=== PATIENT | female | born 1955 | race Caucasian/White ===

== ENCOUNTER 2016-04-12 08:30 | Inpatient (IN) | payer MEDICARE ==
[~2016-04-12] VITALS: Ht 154.9 cm; Wt 113.6 kg
[2016-04-12 08:27] LABS: BASOPHILS 0.4 % (0.0-2.0); EOSINOPHILS 4.1 % (0-7); HEMATOCRIT 37.3 % (36.0-48.0); HEMOGLOBIN 11.9 g/dL (12-16); IMMATURE GRANULOCYTES 0.2 % (0-5); LYMPHOCYTES 29.4 % (15-50); MCH 29.2 pg (26.0-34.0); MCHC 31.9 g/dL (31.0-37.0); MCV 91.6 fL (80.0-100.0); MONOCYTES 7.4 % (2-11); NEUTROPHILS 58.5 % (40-80); PLATELET COUNT 213 10x3/uL (130-400); RBC 4.07 10x6/uL (4.00-5.40); RDW 13.1 % (11.5-14.5); WBC 5.1 10x3/uL (4.8-10.8)
[~2016-04-12 08:30] MED LIST: AMBIEN10 MG PO; AMBIEN5 MG PO; ASPIRIN EC81 M1 PO; ASPIRIN325 MG PO; ATARAX 25 MG TA25 MG PO; ATIVAN1 MG PO; BAYER CHEWABLE81 MG PO; BRILINTA90 MG PO; CARAFATE1 G; COLACE100 MG PO; COLCRYS0.6 MG; ELIQUIS2.5 MG PO; GLUCOPHAGE500 MG PO; HUMALOG 30100 UNITS/ SC; HUMULIN R100 U/ML SC; HYDROCHLOROTHIA25 MG PO; HYDROCODONE-APA1 TAB PO; IPRAT-ALBUT 0.5-3 ML INH; IPRAT-ALBUT 0.5-3 ML UPD; K-TAB10 MEQ PO; LEVAQUIN500 MG PO; LEVAQUIN750 MG PO; LINZESS290 MCG PO; LIPITOR20 MG PO; METOPROLOL TAR100 M1 PO; METOPROLOL TART50 MG PO; MEVACOR20 MG PO; MIRALAX17 GM PO; MS CONTIN15 MG PO; MS CONTIN30 MG PO; NEURONTIN600 MG PO; OMNICEF300 MG PO; OXYCODONE HCL5 MG PO; OYSCO 500+D TAB1 TAB PO; PLAVIX75 MG PO; PLETAL50 MG PO; PRINIVIL20 MG PO; RELAFEN500 MG PO; SOMA350 MG PO; TRAZODONE HCL150 MG PO; ULTRAM50 MG PO; VESICARE5 MG PO; ZANAFLEX4 MG PO; ZANTAC150 MG; ZESTRIL20 MG PO; ZYLOPRIM100 MG
[2016-04-12 08:31] LABS: ANION GAP 14.2 mmol/L (8-16); CALCIUM 9.6 mg/dL (8.5-10.1); CREATININE - SERUM 0.9 mg/dL (0.6-1.3); POTASSIUM - SERUM 4.2 mmol/L (3.5-5.1)
[2016-04-12 08:32] LABS: APTT 26.7 SECONDS (22.8-39.4); INR 0.95 (0.85-1.17); PROTIME 12.5 SECONDS (11.6-15.0)
[2016-04-12 08:59] LABS: APPEARANCE HAZY (CLEAR); BACTERIA MODERATE /hpf (NONE SEEN); BILIRUBIN NEGATIVE (NEGATIVE); COLOR YELLOW (YELLOW); EPITHELIAL CELLS 0-5 /hpf (0-5); GLUCOSE NEGATIVE (NEGATIVE); KETONE NEGATIVE (NEGATIVE); LEUKOCYTE ESTERASE TRACE (NEGATIVE); NITRITE NEGATIVE (NEGATIVE); PROTEIN NEGATIVE (NEGATIVE); RED CELLS - URINE OCC /hpf (0-5); SPECIFIC GRAVITY 1.015 (1.005-1.020); UROBILINOGEN NORMAL (NORMAL); WHITE CELLS - URINE OCC /hpf (0-5)
[2016-04-17] VITALS (10 sets, daily range): BP systolic 80–126; BP diastolic 57–77; Ht 154.9 cm; Wt 113.6 kg
--- NOTE | 2016-04-17 15:30 | NUR ---
RECIEVED PT VIA BED FROM [facility]. REPORT RECIEVED FROM ALFONZO YAO. PT AND FAMILY ORIENTED TO ROOM. POST OP VITALS STARTED. BED IN LOW POSITION AND CALL LIGHT WITHIN REACH. WILL CONTINUE TO MONITOR.
--- NOTE | 2016-04-17 16:00 | NUR ---
LYING IN BED.FAMILY AT BEDSID.PT WITHOUT DISTRESS.ADMIT ASSESSMENT COMPLETE PER ADMIT PACK
--- NOTE | 2016-04-17 19:50 | NUR ---
PATIENT IN SEMI-FOWLERS POSITION. PATIENT DOESNT NEED ANYTHING AT THIS TIME.
[2016-04-18 01:00] VITALS: BP 82/62
[2016-04-18 05:45] LABS: HEMATOCRIT 26.6 % (36.0-48.0); HEMOGLOBIN 8.3 g/dL (12-16); MCH 28.8 pg (26.0-34.0); MCHC 31.2 g/dL (31.0-37.0); MCV 92.4 fL (80.0-100.0); MEAN PLATELET VOLUME 9.8 fL (7.4-10.4); RBC 2.88 10x6/uL (4.00-5.40); RDW 13.4 % (11.5-14.5); WBC 5.4 10x3/uL (4.8-10.8)
[2016-04-18 07:55] VITALS: BP 116/56
--- NOTE | 2016-04-18 08:31 | NUR ---
PT SEEN AT 0745. COMPLAINING OF MINIMAL PAIN BUT IS USING ALTERNATIVE ENERGY TECHNICIAN. DOSAGE CHANGED ORDERED DUE TO LOW PRESSURE DURING THE NIGHT. WOUND VAC NOTED RIGHT HIP-ABLE TO MOVE TOES FREELY AND FOOT IS WARM AND PINK. CALL LIGHT IN REACH
--- NOTE | 2016-04-18 10:09 | NUR ---
* Is the patient Alert and Oriented? Yes 0 * How many steps to enter\exit or inside your home? Ramp 0 * PCP Dr. Ross 0 * Pharmacy [facility] 0 * Preadmission Environment Home with Family 0 * ADLs Independent 0 * Equipment Bedside [facility] Bed Rolling Walker Shower Chair 0 * List name and contact numbers for known caregivers / representatives who currently or will assist patient after discharge: Spouse - Nick [phone] Daughter - Chetna Gandhi [phone] 0 * Additional services required to return to the preadmission environment? Yes 0 * Can the patient safely return to the preadmission environment? Yes 0 * Has this patient been hospitalized within the prior 30 days at any hospital? No 04/18/2016 10:10 DCP: Discharge Planning Patient Name: MELISSA HECTOR Admission Status: Elective Accout number: [id number] Admission Date: 04-17-2016 : 1955 Admission Diagnosis: Attending: DEANA Current LOS: 1 Anticipated DC Date: 04-20-2016 Planned Disposition: Home with Home Health Primary Insurance: MEDICARE A & B Discharge Planning Comments: CM met with patient to assess dc plans/needs. Patient states she lives at home with her , Nick. She reports she was independent with all ADL's & IADL's prior to hospitalization. She has all necessary DME from previous surgeries/hospitalization. At dc, she will return home with her . She states she will not have transportation to go to outpatient physical therapy & requests home health. She has had [facility] in the past and wants to use them again. JESSE signed. Initial referral faxed and called to [facility] with [facility]. Anticipate dc 04/20. CM will follow.
[2016-04-18 12:05] VITALS: BP 113/71
[2016-04-18 15:38] VITALS: BP 92/54
--- NOTE | 2016-04-18 19:00 | NUR ---
BEDSIDE REPORT RECEIVED AND CARE OF PT ASSUMED. PT LYING IN SUPINE POSITION WATCHING TV. NO NEEDS VOICED AND STATES PAIN UNDER CONTROL WITH FREIGHT ELEVATOR OPERATOR AT THIS ASSESSMENT. DRESSING ON RIGHT HIP CLEAN AND DRY, AND WOUND VAC IN PLACE. WILL MONITOR CLOSELY FOR NEEDS.
[2016-04-18 20:00] VITALS: BP 130/59
--- NOTE | 2016-04-18 21:16 | NUR ---
HS MEDICATIONS GIVEN. PT REFUSED MIRALAX. WILL CONTINUE TO MONITOR FOR NEEDS.
--- NOTE | 2016-04-18 23:50 | NUR ---
GAVE SCHEDULED TYLENOL. PT SITTING UP IN BED EATING A SNACK. WILL CONTINUE TO MONITOR FOR NEEDS.
[2016-04-19] VITALS: BP 106/54; BP 120/48
[2016-04-19 04:00] VITALS: BP 90/42
[2016-04-19 07:09] LABS: HEMATOCRIT 25.2 % (36.0-48.0); HEMOGLOBIN 7.8 g/dL (12-16); MCH 28.9 pg (26.0-34.0); MCV 93.3 fL (80.0-100.0); MEAN PLATELET VOLUME 9.8 fL (7.4-10.4); RBC 2.7 10x6/uL (4.00-5.40); RDW 13.8 % (11.5-14.5); WBC 3.8 10x3/uL (4.8-10.8)
--- NOTE | 2016-04-19 07:30 | NUR ---
PT AWAKE AND ALERT NO ACUTE DISTRESS NOTED STILL USING DILAUDID DIRECTOR HEDIS FOR PAIN CONTROL. TO BE STOPPED TODAY
--- NOTE | 2016-04-19 07:45 | NUR ---
PATIENT AWAKE, ALERT AND ORIENTED X'S 4. RESPIRATIONS ARE EVEN AND UNLABORED ON ROOM AIR. PATIENT IN BED, HOB 40 DEGREES. PATIENT DENIES NEEDS AT THIS TIME. BED IN LOWEST POSITION, CALL LIGHT IN REACH. BED RAILS UP X'S 2.
[2016-04-19 07:56] VITALS: BP 126/71
--- NOTE | 2016-04-19 09:30 | NUR ---
PT WITH NO ACUTE DISTRESS NOTED VOICES ALL NEEDS TO STAFF. UP WITH PT TO CHAIR AT BEDSIDE.
[2016-04-19 12:02] VITALS: BP 139/55
--- NOTE | 2016-04-19 12:30 | NUR ---
PT IN BED PER PT EATING LUNCH MEAL B/P 88/36 NEW ORDERS FOR BLOOD [address] ESTRADA. WILL TRANSFUSE WHEN READY IN BLOOD BANK
--- NOTE | 2016-04-19 14:20 | NUR ---
BLOOD STARTED PER UNIT RN. NO REACTION NOTED IN FIRST 15 MIN. TRANSFUSE PER ORDER.
--- NOTE | 2016-04-19 17:00 | NUR ---
TRANSFUSION COMPLETE AT THIS TIME PT LAST TEMP 100.5 ENCOURAGED TO COUGH AND DEEP BREATH. GIVEN SCHEDULED TYLENOL 1000 MG PO WILL REASSESS
--- NOTE | 2016-04-19 18:00 | NUR ---
PT COMPLAINS PAIN TORADOL 30 MG IVP PER ORDER
--- NOTE | 2016-04-19 19:00 | NUR ---
PT WITH NO ACUTE DISTRESS NOTED GIVEN OXY PER ORDER.
[2016-04-19 19:20] LABS: ANION GAP 15.4 mmol/L (8-16); CALCIUM 8.2 mg/dL (8.5-10.1); CREATININE - SERUM 0.9 mg/dL (0.6-1.3); POTASSIUM - SERUM 4.4 mmol/L (3.5-5.1)
[2016-04-19 20:00] VITALS: BP 98/40
[2016-04-20] VITALS: BP 100/48
--- NOTE | 2016-04-20 02:47 | NUR ---
ASSESSED AT THE BEGINNING OF THE SHIFT. PT IS ALERT AND ORIENTED, ABLE TO VERBALIZE NEEDS. SHE HAS A RIGHT HIP INCISION WITH A WOUND VAC IN PLACE. SHE IS ABLE TO TURN AND REPOSITION SOME WITH ASSIST AND IS UP TO BATHROOM TO VOID WITH ASSIST. WE HAVE BEEN GIVING HER PAIN MEDS REQUESTED AND ORDERED. THE BED IS LOW, RAILS UP X'S 2 WITH THE CALL LIGHT AT HAND.
[2016-04-20 04:00] VITALS: BP 132/59
--- NOTE | 2016-04-20 08:00 | NUR ---
PT AWAKE AND ALERT NO DISTRESS NTOED VOICES ALL NEEDS TO STAFF PROVINA WOUND VAC NOTED TO RIGHT HIP AREA. INTACT. IV OUT AT THIS TIME. WILL RESITE. PAIN MEDS GIVEN PER ORDER. PT TO ATTEMPT AMBULATION WITH PT TODAY
--- NOTE | 2016-04-20 08:00 | NUR ---
PATIENT IN LOW VELASQUEZ POSITION RESTING QUIETLY. RESPIRATIONS EVEN AND UNLABORED. SIDE RAILS UP X2. BED IN LOW POSITION. CALL LIGHT IN REACH.
[2016-04-20 08:09] VITALS: BP 126/64
[2016-04-20 08:52] LABS: BASOPHILS 0 % (0.0-2.0); HEMATOCRIT 26.2 % (36.0-48.0); HEMOGLOBIN 8.2 g/dL (12-16); IMMATURE GRANULOCYTES 0.4 % (0-5); LYMPHOCYTES 26.6 % (15-50); MCH 29.4 pg (26.0-34.0); MCHC 31.3 g/dL (31.0-37.0); MCV 93.9 fL (80.0-100.0); MEAN PLATELET VOLUME 10.1 fL (7.4-10.4); PLATELET COUNT 153 10x3/uL (130-400); RBC 2.79 10x6/uL (4.00-5.40); RDW 14.4 % (11.5-14.5); WBC 4.7 10x3/uL (4.8-10.8)
--- NOTE | 2016-04-20 10:00 | NUR ---
UPO IN CHAIR AT BEDSIDE NO DISTRESS NOTED PT UPSET DUE TO LACK OF ABILITY TO AMBULATE IS BECOMING DISCOURAGED. WILL MONITOR MOOD AND AFFECT
[2016-04-20 12:12] VITALS: BP 127/61
--- NOTE | 2016-04-20 12:30 | NUR ---
PT SITTING UP IN CHAIR NO DISTRESS NOTED
[2016-04-20 16:45] VITALS: BP 119/59
--- NOTE | 2016-04-20 18:00 | NUR ---
PT RESTING IN BED PAIN CONTROLLED AT THIS TIME
[2016-04-20 20:30] VITALS: BP 103/47
[2016-04-21 00:08] VITALS: BP 109/61
[2016-04-21 04:30] VITALS: BP 111/62
--- NOTE | 2016-04-21 07:30 | NUR ---
WALKING ROUNDS WITHOUT DISTRESS.STATES PAIN 7/10 SCALE TO HIP.MEDS HAVE BEEN GIVEN PER MAR PER SIMONA SEGURA RN ORDERED.MONITOR FOR NEEDS.CALL LIGHT IN REACH
[2016-04-21 08:30] VITALS: BP 124/68
--- NOTE | 2016-04-21 09:00 | NUR ---
ASSESSMENT PER FLOW SHEET.PT WITHOUT DISTRESS.CALL LIGHT IN REACH
--- NOTE | 2016-04-21 11:28 | NUR ---
Rehab Note- Prescreen order received. Patient noted to only be able to ambulate 1-2ft the past two days, & not tolerating well. The pt with last noted H/H of 8.2/26.2, she received 1 unit PRBC on 04/19/16 for H/H of 7.8/25.2 Will continue to follow the patient at this time for progress with tolerance to therapy due to the patient must be able to tolerate 3hrs of therapy per day to qualify for IRF. Thank you for this referral!
[2016-04-21 12:30] VITALS: BP 137/68
--- NOTE | 2016-04-21 14:12 | NUR ---
SLEEPING WITHOUT DISTRESS,WITHOUT SIGNS OF PAIN.MONITOR
--- NOTE | 2016-04-21 14:45 | NUR ---
Rehab Note- Spoke with patient about possible IRF stay when able to tolerate 3hrs of therapy. Stated "just not able to right now, my brains telling my body but I'm just not able. I believe my gout is acting up & beleive i could do better if I could my medicine for that." Will continue to follow the patient at this time. Charisse Leon RN Clinical Liaison, Rehab Care/Marshal
--- NOTE | 2016-04-21 14:46 | NUR ---
02 OFF FOR 15 MINUTES,SATS REMAINED 92%.PT WITHOUT DISTRESS.
[2016-04-21 15:30] VITALS: BP 128/45
--- NOTE | 2016-04-21 18:22 | NUR ---
REMAINS WITHOUT NEEDS,WITHOUT CHANGE FROM INITIAL ASSESSMENT .CONT PLAN OF CARE
[2016-04-21 20:00] VITALS: BP 125/48
[2016-04-22] VITALS (21 sets, daily range): BP systolic 110–155; BP diastolic 46–79
--- NOTE | 2016-04-22 03:52 | NUR ---
ASSESSED AT THE BEGINNING OF THE SHIFT. PT IS ALERT AND ORNIENTED, ABLE TO VERBLAIZE NEEDS. SHE IS ABLE TO VOID WITH BEDPAN OR ASSIST UP TO BSC. WE ASSIST HER WITH HER NEEDS FOR TURNING. ALL HS MEDS WERE TAKEN AND SHE ALSO RECEIVED HER ROUTINE PAIN MED. ABOUT AN HOUR LATER SHE WAS STILL REPORTING 8-9 PAIN SCALE AND HAS HAD THE OX IR EVERY FOUR HRS SINCE. THE BED IS LOW, RAILS UP X'S TWO WITH THE CALL LIGHT AT HAND.
[2016-04-22 05:10] LABS: BASOPHILS 0.2 % (0.0-2.0); EOSINOPHILS 3.4 % (0-7); HEMATOCRIT 24.6 % (36.0-48.0); HEMOGLOBIN 7.6 g/dL (12-16); IMMATURE GRANULOCYTES 0.9 % (0-5); LYMPHOCYTES 28.8 % (15-50); MCH 29.2 pg (26.0-34.0); MCHC 30.9 g/dL (31.0-37.0); MCV 94.6 fL (80.0-100.0); MEAN PLATELET VOLUME 9.3 fL (7.4-10.4); MONOCYTES 8.1 % (2-11); NEUTROPHILS 58.6 % (40-80); PLATELET COUNT 183 10x3/uL (130-400); RDW 14.5 % (11.5-14.5); WBC 4.5 10x3/uL (4.8-10.8)
[2016-04-22 05:41] LABS: CALC OSMOLALITY 285 mosm/kg (275-300); CALCIUM 8.5 mg/dL (8.5-10.1); CARBON DIOXIDE 26.8 mmol/L (21.0-32.0); CHLORIDE - SERUM 106 mmol/L (98-107); CREATININE - SERUM 0.8 mg/dL (0.6-1.3); GLUCOSE 128 mg/dL (74-106); POTASSIUM - SERUM 4.1 mmol/L (3.5-5.1); SODIUM 142 mmol/L (136-145); UREA NITROGEN 14 mg/dL (7-18); eGFR NON AFRICAN AMERICAN 77 mL/min (90-120)
--- NOTE | 2016-04-22 07:15 | NUR ---
PATIENT RESTING IN BED. AWAKE, ALERT, AND ORIENTED X4. PATIENT WATCHING TV AND STATES SHE IS WAITING FOR HER BREAKFAST TRAY. PATIENT DENIES ANY FURTHER NEEDS AT PRESENT TIME. CALL LIGHT IN REACH. WILL MONITOR.
--- NOTE | 2016-04-22 09:50 | NUR ---
PATIENT RESTING IN BED. SCHEDULED MORNING MEDICATIONS GIVEN TO PATIENT. PATIENT TOLERATED WELL. ASSESSMENT COMPLETED PER FLOWSHEET. TELEMETRY IN PLACE AND SHOWING NORMAL SINUS RHYTHM WITH A RATE OF 82. PATIENT DENIES ANY NEEDS AT PRESENT TIME. CALL LIGHT IN PATIENT'S REACH. WILL MONITOR.
--- NOTE | 2016-04-22 11:14 | NUR ---
NEW ORDERS RECEIVED TO TRANSFUSE 2 UNITS OF PRBC'S. PATIENT'S ONLY IV ACCESS IS A 24 GAUGE CATHETER IN HER LEFT INDEX FINGER. PATIENT IS A HARD STICK AND REQUESTS NOT TO BE "STUCK" AGAIN. PAGED DR HYDE REGARDING PATIENT'S REQUEST AND NEEDING A NEW IV ACCESS FOR BLOOD TRANSFUSION.
--- NOTE | 2016-04-22 11:16 | NUR ---
DR HYDE CALLED BACK. NEW ORDERS RECEIVED TO PLACE A PICC LINE IN PATIENT FOR IV ACCESS.
--- NOTE | 2016-04-22 12:05 | NUR ---
NOTIFIED INTERVENTIONAL RADIOLOGY OF NEW ORDER FRO PATIENT TO HAVE A PICC LINE PLACED. RADIOLOGY STSTED THAT THEY DO NOT PLACE PICC LINES ANYMORE AND THAT A NEW VASCULAR NURSE PLACES PICC LINES, BUT SHE IS ONLY AVAILABLE SATURDAY THRU SATURDAY. PAGED DR HYDE AGAIN.
--- NOTE | 2016-04-22 12:10 | NUR ---
SPOKE WITH DR HYDE ON THE PHONE. NEW ORDERS RECEIVED TO PLACE A CENTRAL LINE IN PATIENT. DR. COTY PINO PAGED REGARDING NEW ORDERS.
--- NOTE | 2016-04-22 12:20 | NUR ---
PATIENT SIGNED A CONSENT FOR A CENTRAL LINE PLACEMENT.
--- NOTE | 2016-04-22 12:40 | NUR ---
DR PINO HERE TO PLACE A CENTRAL LINE IN PATIENT. A CENTRAL LINE WAS PLACED IN PATIENT'S RIGHT UPPER CHEST AREA USING STERILE TECHNIQUE. PATIENT TOLERATED THE PROCEDURE WELL. DR PINO ORDERED A CHEST XRAY FOR PROPER PLACEMENT OF CVL.
--- NOTE | 2016-04-22 14:25 | NUR ---
FIRST UNIT OF PRBC'S STARTED. VSS. TEMP 99.4 UNIT NUMBER [id number]. CALL LIGHT IN PATIENT'S REACH. WILL CONTINUE TO MONITOR PATIENT.
--- NOTE | 2016-04-22 15:25 | NUR ---
PATIENT TOLERATING BLOOD TRANSFUSION WELL. TEMP 98.7. VSS. PATIENT DENIES ANY NEEDS AT PRESENT TIME. CALL LIGHT IN REACH. WILL MONITOR.
--- NOTE | 2016-04-22 17:05 | NUR ---
PATIENT RESTING IN BED. SECOND UNIT OF PRBC'S STARTED. VSS. TEMP 99.0 UNIT NUMBER [id number]. PATIENT DENIES NEEDS AT PRRSENT TIME. CALL LIGHT IN REACH. WILL MONITOR.
--- NOTE | 2016-04-22 19:20 | NUR ---
RECIEVED SHIFT REPORT. PT IS LYING IN BED. ALERT AND ORIENTED AND ABLE TO VERBALIZE NEEDS. IV TO LEFT INDEX FINGER SALINE LOC. RIGHT CENTRAL LINE PATENT AND BLOOD INFUSING AT THIS TIME. SCD'S ON. PT IS AMBULATORY WITH ASSISTANCE. DRESSING TO RIGHT HIP C/D/I. WOUND VAC ATTACHED. PT STATES PAIN IS 9/10. NO NEEDS ARE VERBALIZED AT THIS TIME. WILL CONTINUE TO MONITOR. SIDE RAILS ARE UP X 2. BED IS IN LOWEST POSITION. CALL LIGHT IS WITHIN REACH.
--- NOTE | 2016-04-22 19:44 | NUR ---
PT C/O PAIN 12/23. ADMINISTERED PRESCRIBED PRN OXY IR PER ORDER. DENIES FURTHER NEEDS. WILL MONITOR. SIDE RAILS X 2. BED LOW. CALL LIGHT IN REACH.
--- NOTE | 2016-04-22 21:05 | NUR ---
BLOOD FINISHED AND TUBE FLUSHING AT THIS TIME. PT W/O REACTION. VSS.
--- NOTE | 2016-04-22 22:02 | NUR ---
SHIFT ASSESSMENT COMPLETED. NIGHT MEDS GIVEN WITH NO PROBLEMS. NO NEEDS ARE VOICED. WILL MONITOR. SIDE RAILS X 2. BED LOW. CALL LIGHT IN REACH.
--- NOTE | 2016-04-23 00:31 | NUR ---
PT C/O PAIN 10/22. ADMINISTERED PRESCRIBED PRN OXY IR PER ORDER. DENIES FURTHER NEEDS. WILL MONITOR. SIDE RAILS X 2. BED LOW. CALL LIGHT IN REACH.
[2016-04-23 01:00] VITALS: BP 150/75
[2016-04-23 05:00] VITALS: BP 127/64
--- NOTE | 2016-04-23 05:07 | NUR ---
PT C/O PAIN 09/22. ADMINISTERED PRESCRIBED PRN OXY IR PER ORDER. TYLENOL HELD DUE TO 4000MG EXCEEDED. PT REFUSED LINZESS AT THIS TIME. NO FURTHER NEEDS. WILL MONITOR. SIDE RAILS X 2. BED LOW. CALL LIGHT IN REACH.
[2016-04-23 06:31] LABS: BASOPHILS 0.4 % (0.0-2.0); EOSINOPHILS 3.2 % (0-7); HEMATOCRIT 28.9 % (36.0-48.0); IMMATURE GRANULOCYTES 0.9 % (0-5); LYMPHOCYTES 22.9 % (15-50); MCH 28.9 pg (26.0-34.0); MCHC 31.1 g/dL (31.0-37.0); MCV 92.9 fL (80.0-100.0); MEAN PLATELET VOLUME 9.5 fL (7.4-10.4); MONOCYTES 10.7 % (2-11); NEUTROPHILS 61.9 % (40-80); PLATELET COUNT 203 10x3/uL (130-400); RBC 3.11 10x6/uL (4.00-5.40); RDW 15.8 % (11.5-14.5); WBC 4.7 10x3/uL (4.8-10.8)
[2016-04-23 06:54] LABS: CALC OSMOLALITY 284 mosm/kg (275-300); CALCIUM 8.6 mg/dL (8.5-10.1); CARBON DIOXIDE 28.8 mmol/L (21.0-32.0); CHLORIDE - SERUM 105 mmol/L (98-107); CREATININE - SERUM 0.8 mg/dL (0.6-1.3); GLUCOSE 128 mg/dL (74-106); POTASSIUM - SERUM 4.1 mmol/L (3.5-5.1); SODIUM 142 mmol/L (136-145); UREA NITROGEN 12 mg/dL (7-18); eGFR NON AFRICAN AMERICAN 77 mL/min (90-120)
--- NOTE | 2016-04-23 07:00 | NUR ---
REPORT RECEIVED FROM CORE MEASURES ABSTRACTOR NURSE. CALL LIGHT IN REACH.
[2016-04-23 08:15] VITALS: BP 96/54
--- NOTE | 2016-04-23 08:25 | NUR ---
ASSISTED PT OFF OF BED YOUNGBLOOD AT THIS TIME. VOIDED 400ML OF DARK, YELLOW URINE WITHOUT DIFFICULTY. PT REQUESTING PAIN MEDICATION. PAIN 7/10 INCISIONALLY. EXPLAINED TO PT THAT I WOULD LET CATRACHITA IYER KNOW. BED ALARM ON AND SCD'S OFF PER PT. CALL LIGHT IN REACH, RESPIRATIONS EVEN AND NON LABORED. WILL CONTINUE WITH PLAN OF CARE.
--- NOTE | 2016-04-23 08:27 | NUR ---
ASSESSMENT COMPLETED. AM MEDS ADMINISTERED. SCD MACHINE NOT WORKING. WILL FIND ANOTHER ONE. PASSWORD OBTAINED. CALL LIGHT IN REACH. WILL CONTINUE WITH PLAN OF CARE.
--- NOTE | 2016-04-23 10:18 | NUR ---
SITTING IN CHAIR. OXY IR PO. CALL LIGHT IN REACH.
[2016-04-23] MEDS ORDERED: IPRAT-ALBUT 0.5-3 ML UPD (10:54)
[2016-04-23] MEDS ORDERED: NICODERM C1 PATCH .1 TRANSDERM (10:55)
[2016-04-23] MEDS ORDERED: SENNA LAXATIVE8.6 MG PO (10:56)
[2016-04-23] MEDS ORDERED: COLACE100 MG PO (10:56)
[2016-04-23] MEDS ORDERED: VESICARE5 MG PO (10:57)
[2016-04-23] MEDS ORDERED: OXYCODONE HCL5 MG PO (10:57)
[2016-04-23] MEDS ORDERED: MEDROL DOSE PACK4 MG PO (10:57)
[2016-04-23] MEDS ORDERED: MS CONTIN15 MG PO (10:58)
--- NOTE | 2016-04-23 11:35 | NUR ---
STEROID DOSE PACK INITIATED.
--- NOTE | 2016-04-23 11:38 | NUR ---
PATIENT STATES THAT THE OXY IR DOES NOT DO ANYTHING FOR HER PAIN AND IT MAKES HER JERK. SHE ASKED ME TO CALL MESFIN BETTENCOURT. I SPOKE WITH DR. FULLER WHO STATES IT IS OK FOR HER TO HAVE NORCO 2 PO [id number] PRN BREAKTHROUGH PAIN.
[2016-04-23 12:22] VITALS: BP 96/54
--- NOTE | 2016-04-23 13:36 | NUR ---
PO STEROID GIVEN WITH NORCO PO. CALL LIGHT IN REACH.
--- NOTE | 2016-04-23 14:40 | NUR ---
GABAPENTIN PO. STATES PAIN HAS DECREASED TO A 3.
[2016-04-23] MEDS ORDERED: HYDROCODONE-APA1 TAB PO (15:20)
--- NOTE | 2016-04-23 16:57 | NUR ---
WAITING ON REHAB TO CALL ABOUT PATIENT'S ROOM.
--- NOTE | 2016-04-23 18:15 | NUR ---
HAS ATTEMPTED TO CALL REHAB FOR THE PAST 30-45 MINUTES TO GIVE REPORT BUT THERE HAS NOT BEEN ANY ANSWER. CALLED CORRESPONDENCE COORDINATOR TO NOTIFY HER OF THE SITUATION.
--- NOTE | 2016-04-23 18:29 | NUR ---
REPORT CALLED TO ALFONZO QUINONEZ, IN REHAB.
--- NOTE | 2016-04-23 18:34 | NUR ---
DC'D TO REHAB ROOM 1111B VIA WC.
--- NOTE | 2016-04-24 10:09 | OP ---
PATIENT NAME: MELISSA HECTOR MEDICAL RECORD: [id number] :57 LOCATION:D[id number] ADMISSION DATE:04/17/16 SURGEON: CORWIN PINO MD DATE OF OPERATION: 04/22/2016 PREOPERATIVE DIAGNOSES: 1. Need for IV access. 2. Acute postoperative blood loss anemia. 3. Degenerative joint disease. 4. Morbid obesity. POSTOPERATIVE DIAGNOSES: 1. Need for IV access. 2. Acute postoperative blood loss anemia. 3. Degenerative joint disease. 4. Morbid obesity. PROCEDURE: Right subclavian vein triple-lumen central venous line placement. SURGEON: Corwin Pino MD REPORT OF PROCEDURE: The patient's right neck and chest were prepped and draped in sterile fashion, 5 cc of 1% lidocaine was infused into the surrounding tissues. A needle was then used to cannulate the right subclavian vein. The guidewire was advanced with ease. Over this wire, a dilator was placed followed by the triple lumen catheter. The catheter aspirated nonpulsatile dark blood and flushed easily in all 3 ports with normal saline. This was sutured into place with 3-0 silk ties and dressed appropriately. COMPLICATIONS: None. CONDITION: Stable. ANESTHESIA: Local. BLOOD LOSS: Minimal. Procedure done at the bedside. TRANSINT:[id number] Voice Confirmation ID: [id number] DOCUMENT ID: [id number] CORWIN PINO MD at 1009 CC: [id number] DICTATION DATE: 04/22/16 1255 LEAD ASSISTANT MANAGER: 04/22/16 1304 DIS IN 04/23/16 [place] [id number]
--- NOTE | 2016-05-16 07:00 | DS ---
PATIENT:MELISSA HECTOR :57 MEDICAL RECORD: [id number] DISCHARGE SUMMARY ADMISSION DATE: 04/17/16 DISCHARGE DATE: 04/23/16 DATE OF ADMISSION: 04/17/2016 DATE OF DISCHARGE: 04/23/2016 ADMITTING DIAGNOSIS: Right hip degenerative joint disease. DISCHARGE DIAGNOSES: Right hip degenerative joint disease, although she also additionally had problems with hypertension, type 2 diabetes, chronic obstructive pulmonary disease exacerbation and also with coronary artery disease. HOSPITAL COURSE: This is a pleasant 61-year-old female admitted initially with right hip problem. She underwent hip replacement. She did well with the surgery. She subsequently did develop some problems with both her hypertension as well as with her breathing. Therefore, she did get consultations for this. Her hospital stay therefore became somewhat prolonged secondary to the other medical issues, which she has at this juncture. She was ultimately discharged to the rehab center after 6 days. PRIMARY DIAGNOSES: 1. Right hip degenerative joint disease. 2. Postop acute blood loss anemia. 3. Chronic obstructive pulmonary disease exacerbation. 4. Type 2 diabetes. 5. Coronary artery disease. PLAN: She will continue on her anticoagulation therapy. She will see us back in the office in a couple of weeks. She will call if she is having any problems and proceed from this juncture. TRANSINT:[id number] Voice Confirmation ID: [id number] DOCUMENT ID: [id number] SUZIE FULLER MD at 0700 CC: [id number] DICTATION DATE: 05/15/16 1147 SPORTS BOOKMAKER: 05/15/16 2316 DIS IN 04/23/16 [place] [id number] [place] [id number]
== END 2016-04-23 18:34 | DRG 470 ==
LOC: D.MS 04-17 05:47 → D.SDCHOLD 04-17 05:47 → D.MS 04-17 13:10
PROVIDERS: Family Medicine; ADMIT Orthopaedic Surgery Sports Medicine
PROC: 0SR90JZ Replacement of Right Hip Joint with Synthetic Substitute, Open Approach (ICD-10-PCS; principal; 2016-04-17 11:00)
PROC: 05H533Z Insertion of Infusion Device into Right Subclavian Vein, Percutaneous Approach (ICD-10-PCS; 2016-04-22)
DX: M16.11 Unilateral primary osteoarthritis, right hip (principal); D62 Acute posthemorrhagic anemia; J98.11 Atelectasis; I95.81 Postprocedural hypotension; E11.9 Type 2 diabetes mellitus without complications; I10 Essential (primary) hypertension; Z95.5 Presence of coronary angioplasty implant and graft; I25.10 Atherosclerotic heart disease of native coronary artery without angina pectoris; J44.9 Chronic obstructive pulmonary disease, unspecified; M10.9 Gout, unspecified

== ENCOUNTER 2016-04-23 19:48 | Inpatient (IN) | payer MEDICARE ==
[~2016-04-23] VITALS: Ht 154.9 cm; Wt 117.5 kg
[~2016-04-23 19:48] MED LIST changes: +MEDROL DOSE PACK4 MG PO; +NICODERM C1 PATCH .1 TRANSDERM; +SENNA LAXATIVE8.6 MG PO
[2016-04-23 20:30] VITALS: BP 156/67
--- NOTE | 2016-04-23 20:30 | NUR ---
PT ALREADY ON UNIT PRIOR TO THIS SHIFT, BUT NOT YET ADMITTED TO UNIT. ADMITTED TO ROOM 1111A TO DR CABAN SERVICES WITH DX OF RIGHT TOTAL HIP WITH POST OP COMPLICATIONS. PT IS ALERT AND ORIENTED X 4. NO ACUTE DISCOMFORT NOTED AT THIS TIME. PT ASSISTED UP TO BATHROOM WITH MOD ASSIST FOR TRANSFERS. SBA FOR TOILETING. VSS. WOUND VAC IS INTACT TO RIGHT HIP. SMALL AMOUNT OF BROWN DRAINAGE NOTED. SR'S ARE UP X 2 IN BED. CALL LIGHT AND BEDSIDE TABLE ARE WITHIN EASY REACH.
--- NOTE | 2016-04-23 22:56 | NUR ---
PT IS RESTING QUIETLY IN BED. PM MEDS JUST GIVEN DUE TO WAITING ON PHARMACY TO DELIVER THEN. PT REQUESTED ALL LIGHTS OUT AND DOOR SHUT.
--- NOTE | 2016-04-24 00:55 | NUR ---
ADMISSION ASSESSMENT COMPLETE. DENIES NEEDS. FLUSHED RIGHT CHEST CVL. BOTH LUMENS PATENT TO FLUSH AND BLOOD RETURN.
--- NOTE | 2016-04-24 03:10 | NUR ---
PT ASSISTED TO THE BATHROOM WITH MOD ASSIST. VOIDED WITHOUT DIFFICULTY. NO FURTHER NEEDS VOICED.
[2016-04-24 06:54] LABS: BASOPHILS 0.1 % (0.0-2.0); EOSINOPHILS 0.6 % (0-7); HEMOGLOBIN 10.7 g/dL (12-16); IMMATURE GRANULOCYTES 0.9 % (0-5); LYMPHOCYTES 12.8 % (15-50); MCH 29.2 pg (26.0-34.0); MCHC 31.5 g/dL (31.0-37.0); MCV 92.9 fL (80.0-100.0); MEAN PLATELET VOLUME 9.7 fL (7.4-10.4); MONOCYTES 6.9 % (2-11); NEUTROPHILS 78.7 % (40-80); RBC 3.66 10x6/uL (4.00-5.40); RDW 15.2 % (11.5-14.5)
--- NOTE | 2016-04-24 07:00 | NUR ---
Pt. was received at the beginning of this shift in bed and awake. Alert and oriented x 4. Call light is in reach. Vital signs: Temp. 98.0, pulse 63, resp. 15, b/p 129/86, 02Sat. 95%. Wound vac attached to incision wound on rt. hip. Pt. is given assist with adl's. No voiced needs or concerns at this time. Will continue to monitor her.
[2016-04-24 07:08] LABS: PLATELET COUNT 268 10x3/uL (130-400); WBC 6.9 10x3/uL (4.8-10.8)
[2016-04-24 07:09] LABS: CALC OSMOLALITY 281 mosm/kg (275-300); CALCIUM 9.6 mg/dL (8.5-10.1); CARBON DIOXIDE 27.1 mmol/L (21.0-32.0); CHLORIDE - SERUM 104 mmol/L (98-107); CREATININE - SERUM 0.8 mg/dL (0.6-1.3); GLUCOSE 143 mg/dL (74-106); POTASSIUM - SERUM 4.2 mmol/L (3.5-5.1); SODIUM 140 mmol/L (136-145); UREA NITROGEN 15 mg/dL (7-18); eGFR NON AFRICAN AMERICAN 77 mL/min (90-120)
[2016-04-24 09:20] VITALS: BP 129/86
[2016-04-24 10:52] VITALS: Ht 154.9 cm; Wt 117.5 kg
--- NOTE | 2016-04-24 19:00 | NUR ---
PATIENT IN BED, AWAKE. WOUND VAC TO RIGHT HIP INCISION WITH SCANT BROWN DRAINAGE IN LINE. BRAEDEN CURRENT NEEDS.
[2016-04-24 20:45] VITALS: BP 115/66
--- NOTE | 2016-04-24 20:45 | NUR ---
ASSESSMENT AND VS COMPLETE AFTER ASSISTING PATIENT UP TO BR TO URINATE, AND AFTER REMOVING SCRUB PANTS WHILE ON COMMODE, BACK TO HER BED. DENIES FURTHER NEEDS.
--- NOTE | 2016-04-24 21:50 | NUR ---
GAVE PATIENT SCHEDULED HS MEDS INCLUDING MS CONTIN 15MG FOR PAIN. REPORTS PAIN LEVEL OF 5/10 AT THIS TIME. EARLIER APPLIED ICE PACK TO HIP AND GROIN. SHE STATES IT IS HELPING HER TO BE MORE COMFORTABLE AT REST.
--- NOTE | 2016-04-24 23:00 | NUR ---
ASSISTED PATIENT UP TO BR AND BACK TO BED AFTER TOILETING. GAVE PATIENT HER BEDTIME SNACK SENT FROM DIETARY EARLIER (TURKEY AND CHEESE SANDWICH).
--- NOTE | 2016-04-25 00:15 | NUR ---
RESTING IN BED, EYES CLOSED. HOB UP 30 DEGREES. SNORING SOFTLY.
--- NOTE | 2016-04-25 02:00 | NUR ---
RESTING IN BED, EYES CLOSED. HOB UP 20 DEGREES. NO EVIDENT DISCOMFORT.
--- NOTE | 2016-04-25 04:30 | NUR ---
IN BED, EYES CLOSED. RESPIRATIONS UNLABORED.
--- NOTE | 2016-04-25 05:35 | NUR ---
GAVE PATIENT NORCO 10 X2 TABS PO FOR EXPRESSED PAIN LEVEL OF 5/10 IN RIGHT HIP @ 0458. ALSO GAVE HER EARLY AM SCHEDULED PO MEDS. CHANGED RIGHT CHEST CVL DRESSING USING STERILE PROCEDURE PER PROTOCOL. FLUSHED ALL CVL PORTS AFTER DRAWING BLOOD FOR LABS FROM BROWN PORT. ALL 3 PORTS ARE EASILY PATENT TO FLUSH, BUT WHITE PORT WILL NOT RETURN BLOOD, HOWEVER THIS MAY BE DUE TO POSITION. WILL REMIND DAY SHIFT TO RECHECK FOR BLOOD RETURN AT SCHEDULED FLUSH AT 1400 HRS. ASSISTD PATIENT UP TO BR TO URINATE. THEN TO PUT ON A FRESH PULL-UP AND PANTS. RETURNED HER TO BED. DENIES FURTHER NEEDS.
[2016-04-25 05:49] LABS: BASOPHILS 0.2 % (0.0-2.0); EOSINOPHILS 2.3 % (0-7); HEMATOCRIT 32.5 % (36.0-48.0); IMMATURE GRANULOCYTES 0.8 % (0-5); LYMPHOCYTES 15.5 % (15-50); MCH 28.8 pg (26.0-34.0); MCHC 30.8 g/dL (31.0-37.0); MCV 93.7 fL (80.0-100.0); MEAN PLATELET VOLUME 9.5 fL (7.4-10.4); MONOCYTES 6.7 % (2-11); NEUTROPHILS 74.5 % (40-80); PLATELET COUNT 259 10x3/uL (130-400); RBC 3.47 10x6/uL (4.00-5.40); RDW 15.3 % (11.5-14.5)
[2016-04-25 06:06] LABS: CALC OSMOLALITY 287 mosm/kg (275-300); CALCIUM 9.3 mg/dL (8.5-10.1); CARBON DIOXIDE 29.8 mmol/L (21.0-32.0); CHLORIDE - SERUM 104 mmol/L (98-107); CREATININE - SERUM 0.7 mg/dL (0.6-1.3); GLUCOSE 145 mg/dL (74-106); POTASSIUM - SERUM 4.2 mmol/L (3.5-5.1); SODIUM 142 mmol/L (136-145); eGFR NON AFRICAN AMERICAN 90 mL/min (90-120)
[2016-04-25 06:12] LABS: UREA NITROGEN 19 mg/dL (7-18)
[2016-04-25 07:51] VITALS: BP 118/74
--- NOTE | 2016-04-25 09:29 | NUR ---
TOOK AM MED THIS MORNING. ASSISTED BACK TO WHEELCHAIR FROM TOILET WITH THERAPY. NO FALLS NOTED.
--- NOTE | 2016-04-25 09:51 | NUR ---
DR. FULLER'S OFFICE CALLED FOR ORDERS FOR RT HIP DRSG WOUND VAC. ORDERS RECEIVED FROM APR.
--- NOTE | 2016-04-25 11:48 | NUR ---
SITTING IN WHEELCHAIR WITH CALLIGHT IN REACH. WOUND VAC TO RT HIP. SMALL AMT OF DRNGHIA NOTED TO WOUND VAC.
--- NOTE | 2016-04-25 13:51 | NUR ---
REMOVED DRSG FROM RT HIP WITH LILA INTACT. NO DRNG NOTED. BLOOD BLISTER BELOW THE RT HIP INCISION. AQUACEL DRSG APPLIED TO RT HIP INCISION.
--- NOTE | 2016-04-25 15:56 | NUR ---
MOVED PT FROM B TO A SIDE. NO NEEDS VOICED. CALLIGHT IN REACH.
--- NOTE | 2016-04-25 17:13 | NUR ---
CARE TEAM MEETING: TENATIVE DISCHARGE DATE IS 05/03/16. PATIENT HAS WALKER, CANE AND PCP IS DR. HALL. WILL CONTINUE TO FOLLOW WITH PATIENT UNTIL DISCHARGED
--- NOTE | 2016-04-25 17:16 | NUR ---
CARE TEAM MEETING: PATIENT TENATIVE DISCHARGE DATE IS 05/03/16. PATIENT HAS BSC, HOSPITAL BED, WALKER, SHOWER CHAIR AND USES [facility]. WILL CONTINUE TO FOLLOW WITH PATIENT UNTIL DISCHARGED
--- NOTE | 2016-04-25 17:33 | NUR ---
PT TAKING A SHOWER VIA REYNALDO OT.
--- NOTE | 2016-04-25 18:26 | NUR ---
PT RT SUBCLAVIAN DRSG WET DUE TO SHOWER AND DRSG CHANGED.
--- NOTE | 2016-04-25 19:10 | NUR ---
IN BED, AWAKE. DENIES NEEDS. CURRENTLY CONVERSING WITH HER NEW ROOMMATE.
--- NOTE | 2016-04-25 19:10 | NUR ---
SITTING UP ON BEDSIDE. PATIENT ARRIVED ON UNIT AT 1850 HRS ACCOMPANIED BY MED 2 STAFF. O2 PER N/C @ 5L FLOW WHICH WAS SET UP BY RADHA SHIPMAN R/T STAFF.
[2016-04-25 20:14] VITALS: BP 107/70
--- NOTE | 2016-04-25 20:40 | NUR ---
ASSISTED PATIENT UP TO BR TO URINATE, AND THEN BACK TO BED. TRANSFERRING BETTER AND BEARING A LITTLE MORE WEIGHT ON HER OPERATED RIGHT LEG.
--- NOTE | 2016-04-25 22:55 | NUR ---
ASSESSMENT AND HS MEDS COMPLETE. PATIENT C/O PAIN LEVEL OF 5/10 IN RIGHT HIP AND BUTTOCK. TOOK SCHEDULED MS CONTIN 15MG PO, BUT DECLINED OFFER OF PRN NORCO. SAYS IT DISTURBS HER SLEEP. PATIENT REFUSED MIRALAX, COLACE AND SENNOKOT, SAYING THAT SHE HAD 2 LOOSE STOOLS TODAY. SHE ALSO REFUSED EARLY AM LINZESS IN ADVANCE OF TOMORROW'S DOSE FOR THE SAME REASON.
--- NOTE | 2016-04-26 00:15 | NUR ---
RESTING QUIETLY IN BED, DESPITE MY CONDUCTING HER ROOMMATE'S ADMISSION ASSESSMENT IN THE ROOM.
--- NOTE | 2016-04-26 02:40 | NUR ---
PATIENT WAS JUST UP WITN MANAGER FEDERAL ASSIST TO BR TO URINATE.
--- NOTE | 2016-04-26 04:35 | NUR ---
IN BED, EYES CLOSED. RESPIRATIONS UNLABORED.
--- NOTE | 2016-04-26 06:25 | NUR ---
GAVE PATIENT SCHEDULED MEDS. DENIES NEEDS. PATIENT IS DRESSED.
[2016-04-26 08:16] VITALS: BP 126/64
--- NOTE | 2016-04-26 09:55 | NUR ---
SITTING IN WHEELCHAIR IN THE GYM WORKING WITH THERAPY WITH UPPER EXTREMITIES. NO FALLS NOTED.
--- NOTE | 2016-04-26 13:17 | NUR ---
SITTING IN WHEELCHAIR IN THE ROOM EATING LUNCH. CALLIGHT IN REACH.
--- NOTE | 2016-04-26 15:03 | NUR ---
RESTING IN BED WITH VISITOR IN THE ROOM. CALLIGHT IN REACH.
--- NOTE | 2016-04-26 17:24 | NUR ---
C/O RT GROIN PAIN ,PRN MED GIVEN. RT HIP DRSG CHANGED.
--- NOTE | 2016-04-26 19:00 | NUR ---
PATIENT IN BED, AWAKE. DENIES NEEDS.
--- NOTE | 2016-04-26 21:50 | NUR ---
ASSESSMENT AND HS MEDS COMPLETE. HELD MIRALAX, COLACE AND SENNOKOT PATIENT REFUSED THEM. SAYS HER STOOLS WERE TOO LOOSE TODAY. PATIENT RECEIVED SCHEDULED MS CONTIN 15MG PO AND ROBAXIN 500 MG FOR HER RIGHT HIP AND BUTTOCK PAIN AND CRAMPING. REPORTS PAIN LEVEL OF 5/10.
[2016-04-26 22:54] VITALS: BP 122/60
--- NOTE | 2016-04-27 00:15 | NUR ---
RESTING QUIETLY IN BED, EYES CLOSED.
--- NOTE | 2016-04-27 02:15 | NUR ---
REMAINS IN BED, EYES CLOSED. APPEARS COMFORTABLE.
--- NOTE | 2016-04-27 04:35 | NUR ---
PATIENT WAS GIVEN NORCO 10/325 X2 TABS PO FOR C/O PAIN LEVEL OF 6/10 IN RIGHT HIP AND BUTTOCK.
[2016-04-27 08:03] LABS: BASOPHILS 0.1 % (0.0-2.0); EOSINOPHILS 2.1 % (0-7); HEMATOCRIT 33.1 % (36.0-48.0); HEMOGLOBIN 10.2 g/dL (12-16); LYMPHOCYTES 14.2 % (15-50); MCHC 30.8 g/dL (31.0-37.0); MEAN PLATELET VOLUME 9.4 fL (7.4-10.4); MONOCYTES 8.1 % (2-11); NEUTROPHILS 74.5 % (40-80); PLATELET COUNT 283 10x3/uL (130-400); RBC 3.52 10x6/uL (4.00-5.40); RDW 14.5 % (11.5-14.5); WBC 7.3 10x3/uL (4.8-10.8)
[2016-04-27 08:45] LABS: CALC OSMOLALITY 296 mosm/kg (275-300); CALCIUM 9.4 mg/dL (8.5-10.1); CARBON DIOXIDE 30.4 mmol/L (21.0-32.0); CHLORIDE - SERUM 108 mmol/L (98-107); CREATININE - SERUM 0.8 mg/dL (0.6-1.3); GLUCOSE 110 mg/dL (74-106); POTASSIUM - SERUM 4.6 mmol/L (3.5-5.1); SODIUM 147 mmol/L (136-145); UREA NITROGEN 23 mg/dL (7-18); eGFR NON AFRICAN AMERICAN 77 mL/min (90-120)
--- NOTE | 2016-04-27 09:35 | NUR ---
TOOK PILLS WITH EASE. CALLIGHT IN REACH.
[2016-04-27 10:34] VITALS: BP 126/75
--- NOTE | 2016-04-27 11:14 | RHP ---
PATIENT: MELISSA HECTOR MEDICAL RECORD: [id number] ACCOUNT: [id number] LOCATION:[facility] D.1111 : 57 ADMISSION DATE: 04/23/16 REHABILITATION HISTORY AND PHYSICAL EXAMINATION POST ADMISSION PHYSICIAN EXAMINATION Post-admission Physical Exam and History and Physical DATE OF ADMISSION TO THE REHAB: 04/23/2016 ADMITTING DIAGNOSES: Right total hip with postop complications, hemorrhagic anemia and hypotension. HISTORY OF PRESENT ILLNESS: The patient is an elderly female who presents to inpatient rehab with a right total hip with postoperative complications. She had an elective right hip due to history of degenerative joint disease with failed attempts of intra-articular injections. The patient has had some postop complications of hemorrhagic anemia with postop H&Hs of 11.9 and 37.[address] the way down to 7.8 and 25.2. She has received packed red blood cells a couple of times. She has received approximately 3 units. The patient has been symptomatic with her acute hemorrhagic anemia secondary to shortness of breath including the use of oxygen at 2.5 liters per nasal cannula. She has been hypotensive. She was also noted to have some chest congestion and noted x-ray to have some subtle opacities in the left lung base, most consistent with a component of atelectasis. On April 21, the patient reported still coughing, occasional blood-tinged sputum. The patient also noted that she could not stand up due to pain in her right foot and ankle consistent with previous gout flares. She was started on a Medrol Dosepak on April 23. She seems to be doing better with the pain. She is still very weak and requiring moderate assist with transfers and also ambulation. COMORBIDITIES: In this patient, include gout, osteoporosis, bursitis, rheumatoid arthritis, hyperlipidemia, coronary artery disease, hypertension, COPD, gastroesophageal reflux disease, irritable bowel syndrome, osteoarthritis, dysphasia, DJD, obesity, history of tobacco use, coronary artery disease, frequent UTIs and kidney stones. She has got a wound VAC to her right hip, anxiety, history of joint replacement and allergic rhinitis. PAST MEDICAL HISTORY: Significant for diabetes, hyperlipidemia, hypertension, coronary artery disease, gout, anemia, allergic rhinitis, COPD, gastroesophageal reflux disease, irritable bowel syndrome, rheumatoid arthritis, and CHF. PAST SURGICAL HISTORY: Includes intra-articular injections, a right total knee, a revision of the right total knee, heart stents, hysterectomy, bladder sling, appendectomy, kidney stone, times 2. ALLERGIES: CODEINE, ERYTHROMYCIN, AND FLEXERIL. CURRENT MEDICATIONS: Include Protonix 40 mg daily, potassium 10 mEq daily. She is on a Nicoderm patch. She is on Linzess 290 mcg daily, allopurinol 100 mg daily, zolpidem 10 mg q.h.s., trazodone 150 q.h.s., Brilinta 90 mg b.i.d., VESIcare 5 mg b.i.d., Senna 2 tabs q.h.s., polyethylene glycol 17 grams in 8 ounces of water daily, MS Contin 15 mg b.i.d., metoprolol 50 mg b.i.d., lisinopril 20 mg at bedtime. She is on [place] 10/325 one to two tabs q.4 hours p.r.n., Neurontin 600 mg t.i.d., Colace 100 mg b.i.d., Lipitor 10 mg at bedtime, HISTORY AND PHYSICAL [id number] MELISSA HECTOR and a tapering dose of methylprednisolone for her gout. HABITS: Does have a history of tobacco use. FAMILY HISTORY: Noncontributory. SOCIAL HISTORY: The patient wants to return home with her . REVIEW OF SYSTEMS: GENERAL: Does complain of weakness and fatigue. HEENT: Does complain of cold, cough, and congestion. CARDIOVASCULAR: Denies chest pain. LUNGS: Does complain of shortness of breath with ambulation. PHYSICAL EXAMINATION: VITAL SIGNS: Stable. GENERAL: She is a morbidly obese white female who is in no acute distress. HEENT: Normocephalic and atraumatic. Mucosa moist. NECK: Supple. No lymphadenopathy. LUNGS: Clear at this time. HEART: Regular rate and rhythm. ABDOMEN: Benign. EXTREMITIES: Does have a wound VAC to her hip. NEUROLOGIC: Intact. LABORATORY DATA: Her white count is 6.9, H&H of 11 and 34 and platelet count is 268. Her sodium is 140, potassium 4.2, BUN and creatinine of 15 and 0.8, and blood sugar is noted to be 143. ASSESSMENT: This is a 61-year-old female patient admitted to rehab with a working diagnosis of status post right total hip replacement with postop complications. The patient has potential to make improvement. We instituted the following multidisciplinary therapies including to, but not limited to physical, occupational, respiratory, speech, nutritional services, prosthetics and orthotics. Given her complex condition and risk for more complications, rehabilitation services cannot be provided at a low level of care such as a half-way facility. PLAN: 1. Admit to [facility] rehab for intensive inpatient therapy to include the following disciplines: A. Physical therapy to improve gait, all transfer skills and bed mobility to a modified independent level. B. Occupational therapy to improve activities of daily living to a modified independent level. C. Case management to assist with discharge planning and placement options. D. Nutrition to assist with nutritional needs. E. Rehabilitation nursing to assist in monitoring the patient's underlying medical conditions and to assist with any type of bowel or bladder management. 2. The patient's current medication and medical care will be continued. 3. The patient will be placed on standard fall precautions. 4. The patient's estimated length of stay is approximately 7-10 days. 5. We will discuss this patient during care team staff meeting this week. TRANSINT:[id number] Voice Confirmation ID: [id number] DOCUMENT ID: [id number] HISTORY AND PHYSICAL [id number] MELISSA HECTOR SCOTT MD at 1114 CC: [id number] DICTATION DATE: 04/24/16 1014 PARTY PLAN DEMONSTRATOR: 04/24/16 1116 ADM IN [address] [address] [place] [address]
--- NOTE | 2016-04-27 12:45 | NUR ---
Nutrition Follow Up: Pt reported that her appetite is good and she is eating well. Diet: Regular PO Intake: 88% (8 meal avg) Noted pt with wound vac +BM 04/25/16 Labs noted - Glucose WNL; Na elevated Meds noted Pt with good po intake at this time. Rec continue current diet. RD following.
--- NOTE | 2016-04-27 13:27 | NUR ---
ASSISTED PT TO BR VIA WHEELCHAIR AND VOIDED YELLOW URINE. BACK TO BED AND CHECKED RT GROIN. PT C/O PULLING MUSCLE BUT NOTHING VISIBLE.ICK PACK APPLIED TO RT GROIN AND PAIN PILLS GIVEN. CALLIGHT IN REACH.
--- NOTE | 2016-04-27 15:07 | NUR ---
RESTING IN BED AND TOOK PILLS. STATES THE ICE IS HELPING MY RT GROIN.
--- NOTE | 2016-04-27 17:55 | NUR ---
CALL FOR ASSISTANCE AND C/O RT GROIN PRN PAIN MED GIVEN.
--- NOTE | 2016-04-27 19:30 | NUR ---
PT WATCHING TV, RESPIRAITONS REGULAR AND UNLABORED, NO S/S OF ACUTE DISTRESS.
--- NOTE | 2016-04-27 21:30 | NUR ---
PT STATES SHE TAKES MANY OF HER PILLS ALL AT ONCE, OTHERWISE IT WOULD TAKE A LONG TIME TO GET THEM ALL TAKEN. PT C/O PAIN AND MEDICATED PER PATIENT REQUEST. DRESSING INTACT TO RIGHT LEG.
[2016-04-27 21:37] VITALS: BP 130/63
--- NOTE | 2016-04-28 05:08 | NUR ---
PT RESTING QUIETLY, HAD BEEN UP TO BATHROOM WITH ASSIST OF 1, PT DENIES ANY NEEDS AT THIS TIME.
--- NOTE | 2016-04-28 07:00 | NUR ---
Pt. was received at the beginning of this shift. Awake and oriented x 3 in bed. No signs of any pain or discomfort. Call light in reach. Vital signs: Temp. 98.0, pulse 62, resp. 20, b/p 130/69, 02Sat. 92%. Will be monitoring her throughout this shift and following her plan of care.
--- NOTE | 2016-04-28 12:00 | NUR ---
Pt. requested pain medication and received [place] 20mg at this time. She just finished up in therapy. . Will monitor her comfort level.
[2016-04-28 13:42] VITALS: BP 130/69
--- NOTE | 2016-04-28 17:16 | NUR ---
Pt. asked for a muscle relaxer when she got in bed to rest around 2:30pm. She received Robaxin 500mg at that time. She later asked for pain medication again and received [place] 20mg at 4:15pm while still resting. She did receive a shower this afternoon and had her dressing changed on her right hip where the miranda are. The incision is intact and there is no reddness, swelling or drainage to the incision site.
[2016-04-28 19:41] VITALS: BP 108/70
--- NOTE | 2016-04-28 19:50 | NUR ---
ASSISTED PT SBA FOR TRANSFER TO W/C. PT C/O LEFT HIP PAIN. PT HAS RESOLVING TAPE BURN DISTAL TO INCISION.
--- NOTE | 2016-04-29 01:06 | NUR ---
pt resting with eyes closed, respirations reg and unlabored, no s/s of acute distress.
--- NOTE | 2016-04-29 02:20 | NUR ---
PT TRANSFERRED TO W/C INDEPENDENTLY AND WAS FOUND IN BATHROOM, DISCUSSED THE RELEASE FORM AGAIN AND PATIENT WILL SIGN IN MORNING.
--- NOTE | 2016-04-29 03:27 | NUR ---
VESICARE WAS DROPPED, DISCARDED MEDICATION AND ADMINISTERED NEW ONE.
--- NOTE | 2016-04-29 06:39 | NUR ---
dressing changed, incision well approximated, serous drainage.
[2016-04-29 07:00] VITALS: BP 102/65
--- NOTE | 2016-04-29 11:05 | NUR ---
PT. WAS RECEIVED AT THE BEGINNING OF THIS SHIFT IN BED AWAKE AND ORIENTED X 3. PT SPOKE ABOUT THE FORM THAT SHE WILL SIGN TO RELEASE THE HOSPITAL WITH LIABILITY IF AND WHEN SHE GETS OUT OF BED ON HER OWN. VITAL SIGNS; TEMP. 97.9, PULSE 64, RESP. 16, B/P 102/65, 02SAT. 95%. DENIES ANY NEEDS OR CONCERNS AT THIS TIME. CALL LIGHT IN REACH.
--- NOTE | 2016-04-29 17:41 | NUR ---
Pt. has had an uneventful shift today. She has asked for pain medication twice today and received the [place] at 12:40pm and again at 5:20pm. She asked for Robaxin 500mg at 3:10pm. She admitted to watching the clock for her prn medications.
[2016-04-29 22:05] VITALS: BP 143/66
--- NOTE | 2016-04-30 01:15 | NUR ---
HAVE BLOOD TUBES READY FOR AM DRAW, PT RESTING QUIETLY EYES CLOSED, NO S/S OF ACUTE DISTRESS.
[2016-04-30 04:37] LABS: BASOPHILS 0.3 % (0.0-2.0); EOSINOPHILS 3.5 % (0-7); HEMATOCRIT 34.5 % (36.0-48.0); HEMOGLOBIN 10.5 g/dL (12-16); IMMATURE GRANULOCYTES 0.3 % (0-5); MCH 28.3 pg (26.0-34.0); MCHC 30.4 g/dL (31.0-37.0); MEAN PLATELET VOLUME 9.4 fL (7.4-10.4); MONOCYTES 6.6 % (2-11); NEUTROPHILS 61.3 % (40-80); PLATELET COUNT 293 10x3/uL (130-400); RBC 3.71 10x6/uL (4.00-5.40); RDW 14.1 % (11.5-14.5); WBC 5.7 10x3/uL (4.8-10.8)
[2016-04-30 04:52] LABS: CALC OSMOLALITY 288 mosm/kg (275-300); CALCIUM 9.4 mg/dL (8.5-10.1); CARBON DIOXIDE 28.3 mmol/L (21.0-32.0); CHLORIDE - SERUM 106 mmol/L (98-107); CREATININE - SERUM 0.8 mg/dL (0.6-1.3); GLUCOSE 110 mg/dL (74-106); SODIUM 144 mmol/L (136-145); UREA NITROGEN 16 mg/dL (7-18); eGFR NON AFRICAN AMERICAN 77 mL/min (90-120)
--- NOTE | 2016-04-30 05:24 | NUR ---
PT AWAKE, PT C/O ITCH IN INCISION, CHANGED DRESSING - INCISION WELL APPROXIMATED, SCANT SEROUS DRAINAGE. REDDENED DISTAL AND PROXIMAL END OF DRESSING WHERE BORDER DRESSING WAS.
--- NOTE | 2016-04-30 06:39 | NUR ---
PT RESTING QUIETLY WATCHING TV, RESPIRATIONS REGULAR AND UNLABORED. DRESSING TO LEFT HIP INTACT.
[2016-04-30 09:03] VITALS: BP 120/71
--- NOTE | 2016-04-30 19:55 | NUR ---
PT. IN BED WATCHING TV. PT. AWARE OF NEED TO COLLECT URINE SPECIMEN TONIGHT. PT. HAS SPECIMEN CUP ON BEDSIDE TABLE. ASSESSMENT COMPLETE. NEW DRESSING TO RIGHT HIP SURGICAL INCISION C/D/I. PT. HAS NO VOICED NEEDS/CONCERNS AT THIS TIME AND HAS HER CALL LIGHT WITHIN REACH. PT. HAS SIGNED A BED ALARM WAIVER ALREADY.
[2016-04-30 20:30] VITALS: BP 125/49
--- NOTE | 2016-04-30 21:10 | NUR ---
PT. CALLED ME TO BATHROOM TO MAXILLOFACIAL PROSTHETICS DENTIST HER URINE SPECIMEN. PT. REPORTS SHE DROPPED THE CUP INTO THE TOILET BUT WIPED IT OUT BEFORE SHE COLLECTED THE URINE SAMPLE. INFORMED PT. THAT THE SPECIMEN WAS CONTAMINATED AND NEW SPECIMEN CUP WAS GIVEN TO PT. TO COLLECT URINE. PT. SAID SHE WAS GLAD SHE SAID SOMETHING TO ME.
--- NOTE | 2016-05-01 03:03 | NUR ---
PT. IN BED WITH HOB UP FOR COMFORT WITH EYES CLOSED AND RESP. EVEN. CALL LIGHT WITHIN REACH.
[2016-05-01 04:59] LABS: APPEARANCE HAZY (CLEAR); BILIRUBIN NEGATIVE (NEGATIVE); COLOR YELLOW (YELLOW); GLUCOSE NEGATIVE (NEGATIVE); KETONE NEGATIVE (NEGATIVE); LEUKOCYTE ESTERASE TRACE (NEGATIVE); NITRITE POSITIVE (NEGATIVE); PROTEIN TRACE mg/dL (NEGATIVE); UROBILINOGEN NORMAL (NORMAL)
[2016-05-01 05:05] LABS: BACTERIA MANY /hpf (NONE SEEN); EPITHELIAL CELLS 0-5 /hpf (0-5); HYALINE CAST RARE /lpf (NONE SEEN); MUCUS <1+ /lpf (NONE SEEN); RED CELLS - URINE OCC /hpf (0-5); WHITE CELLS - URINE 0-5 /hpf (0-5)
[2016-05-01 08:34] VITALS: BP 134/59
--- NOTE | 2016-05-01 19:20 | NUR ---
PATIENT IN BED, AWAKE. DELIVERED HER MENU TO COMPLETE.
--- NOTE | 2016-05-01 20:15 | NUR ---
IN BED, AWAKE. DENIES NEEDS.
[2016-05-01 22:30] VITALS: BP 140/64
--- NOTE | 2016-05-01 22:30 | NUR ---
ASSESSMENT AND HS MEDS COMPLETE. REFUSED ALL BOWEL MEDS (S[place], MIRALAX, COLACE). SAYS SHE IS HAVING REGULAR BM'S AND NO LONGER NEEDS THEM.
--- NOTE | 2016-05-02 00:20 | NUR ---
IN BED, EYES CLOSED. SNORING.
--- NOTE | 2016-05-02 02:15 | NUR ---
PATIENT JUST RETURNED FROM [facility]. S/O PAIN LEVEL KELLIE 6/10 IN RIGHT HIP AND BUTTOCK WITH MILD CRAMPING. GAVE HER NORCO 10/325 X2 TABS PO ALONG WITH ROBAXIN 500MG PO FOR SPASMS.
--- NOTE | 2016-05-02 04:30 | NUR ---
RESTING IN BED, EYES CLOSED. RESPIRATIONS ARE QUIET AND UNLABORED.
[2016-05-02 06:29] LABS: BASOPHILS 0.2 % (0.0-2.0); EOSINOPHILS 3.7 % (0-7); HEMATOCRIT 31.1 % (36.0-48.0); HEMOGLOBIN 9.6 g/dL (12-16); IMMATURE GRANULOCYTES 0.2 % (0-5); LYMPHOCYTES 27.9 % (15-50); MCH 28.7 pg (26.0-34.0); MCHC 30.9 g/dL (31.0-37.0); MCV 93.1 fL (80.0-100.0); MEAN PLATELET VOLUME 9.3 fL (7.4-10.4); MONOCYTES 7.7 % (2-11); NEUTROPHILS 60.3 % (40-80); PLATELET COUNT 264 10x3/uL (130-400); RBC 3.34 10x6/uL (4.00-5.40); WBC 4.6 10x3/uL (4.8-10.8)
[2016-05-02 06:45] LABS: ANION GAP 12.5 mmol/L (8-16); CALCIUM 8.9 mg/dL (8.5-10.1); CARBON DIOXIDE 29.2 mmol/L (21.0-32.0); CREATININE - SERUM 0.9 mg/dL (0.6-1.3); POTASSIUM - SERUM 3.7 mmol/L (3.5-5.1)
--- NOTE | 2016-05-02 08:00 | NUR ---
SHIFT ASSMT COMPLETED.CL IN REACH.
[2016-05-02 08:27] VITALS: BP 93/75
--- NOTE | 2016-05-02 09:54 | NUR ---
Nutrition Follow Up: Chart reviewed. Diet: Regular PO Intake: 89% (9 meal avg) +BM 05/01/16 No new wt to assess Meds and labs noted Post Op swelling site WNL per MD note Pt with good po intake at this time. Rec continue current diet. RD following.
--- NOTE | 2016-05-02 12:00 | NUR ---
EATING LUNCH.DENIES NEEDS.CL IN REACH.
--- NOTE | 2016-05-02 15:15 | NUR ---
CARE TEAM MEETING: PATIENT DISCHARGING HOME ON 05/03/16 WITH FAMILY. PATIENT HAS WALKER, SHOWER CHAIR AND HOSPITAL BED AT HOME, NO NEW DME NEEDED AT THIS TIME. APPOITMENT: DR. PHILIP 05/07/16 @ 3:30, DR. FULLER 05/04/16 @ 10:40. [facility] WILL RESUME CARE OF PATIENT WITH NURSING, PT, OT. PATIENT CHOICE FORM FOR HOME HEALTH AND IMFM FORM SIGNED, EXPLIANED AND FILED IN CHART. WILL CONTINUE TO FOLLOW WITH PATIENT UNTL DISCHARGED
--- NOTE | 2016-05-02 16:00 | NUR ---
WATCHING TV.CL IN REACH.
--- NOTE | 2016-05-02 16:00 | NUR ---
RT CVL DC'D.TIP INTACT.SM DRSG APPLIED.
--- NOTE | 2016-05-02 19:00 | NUR ---
IN BED, AWAKE. DENIES NEEDS.
[2016-05-02 19:40] VITALS: BP 165/61
--- NOTE | 2016-05-02 19:40 | NUR ---
VS AND ASSESSMENT COMPLETE. TOLD PATIENT I WILL RETURN LATER FOR MED PASS. SHE HAS NO COMPLAINTS OR REQUESTS AT THIS TIME.
--- NOTE | 2016-05-02 21:50 | NUR ---
HS MEDS WERE GIVE TO PATIENT. TOOK ALL SCHEDULED MEDS INCLUDING LAXATIVES AND STOOL SOFTENERS SHE SAYS HRE BM TODAY WAS SOMEWHAT HARD.
--- NOTE | 2016-05-03 00:15 | NUR ---
RESTING QUIETLY IN BED, EYES CLOSED.
--- NOTE | 2016-05-03 02:20 | NUR ---
CONTINUES IN BED, EYES CLOSED.
--- NOTE | 2016-05-03 04:30 | NUR ---
RESTING QUIETLY IN BED, RESPIRATIONS UNLABORED.
--- NOTE | 2016-05-03 05:10 | NUR ---
C/O PAIN LEVEL OF 7/10 IN RIGHT HIP WITH MILD SPASMS IN RIGHT BUTTOCK. GAVE PATIENT NOR[place] 10/325 X2 TABS AND ROBAXIN 500MG PO ALONG WITH EARLY AM SCHEDULED PO MEDS.
--- NOTE | 2016-05-03 06:00 | NUR ---
RESTING QUIETLY IN BED SINCE EARLIER RECEIVING NORCO AND ROBAXIN. APPEARS COMFORTABLE.
[2016-05-03 09:32] VITALS: BP 117/68
[2016-05-03] MEDS ORDERED: LEVAQUIN250 MG PO (11:58)
== END 2016-05-03 12:02 | disposition home health service (06) | DRG 949 ==
LOC: D.REHAB 19:48
PROVIDERS: ADMIT Emergency Medicine
DX: T84.89XD Other specified complication of internal orthopedic prosthetic devices, implants and grafts, subsequent encounter (principal); D62 Acute posthemorrhagic anemia; Z68.42 Body mass index [BMI] 45.0-49.9, adult; M10.9 Gout, unspecified; M81.0 Age-related osteoporosis without current pathological fracture; M71.9 Bursopathy, unspecified; M06.9 Rheumatoid arthritis, unspecified; E78.5 Hyperlipidemia, unspecified; I25.10 Atherosclerotic heart disease of native coronary artery without angina pectoris; I10 Essential (primary) hypertension; J44.9 Chronic obstructive pulmonary disease, unspecified; K21.9 Gastro-esophageal reflux disease without esophagitis; K58.9 Irritable bowel syndrome, unspecified; M19.90 Unspecified osteoarthritis, unspecified site; R47.02 Dysphasia; E66.9 Obesity, unspecified; Z87.891 Personal history of nicotine dependence; F41.9 Anxiety disorder, unspecified; Z96.641 Presence of right artificial hip joint; E87.6 Hypokalemia; R00.1 Bradycardia, unspecified

== ENCOUNTER → 2016-07-18 10:51 | Outpatient (CLI) | payer MEDICARE ==
[2016-04-24 10:52] VITALS: BMI 48.9
[~2016-07-18 10:51] MED LIST changes: +LEVAQUIN250 MG PO
== END | disposition home or self-care (01) ==
LOC: D.RT 10:51
DX: J44.9 Chronic obstructive pulmonary disease, unspecified (principal)

== ENCOUNTER → 2016-09-27 07:56 | Outpatient (CLI) | payer MEDICARE ==
[2016-04-24 10:52] VITALS: BMI 48.9
== END | disposition home or self-care (01) ==
LOC: D.CT 07:56
DX: R10.11 Right upper quadrant pain (principal)

== ENCOUNTER 2016-12-20 05:34 | Day surgery (SDC) | payer MEDICARE ==
[2016-12-19 09:59] LABS: HEMATOCRIT 34.7 % (36.0-48.0); HEMOGLOBIN 11.1 g/dL (12-16); MCH 28.6 pg (26.0-34.0); MCV 89.4 fL (80.0-100.0); MEAN PLATELET VOLUME 9.4 fL (7.4-10.4); RBC 3.88 10x6/uL (4.00-5.40); RDW 13.6 % (11.5-14.5); WBC 4.7 10x3/uL (4.8-10.8)
[2016-12-19 10:18] LABS: CALC OSMOLALITY 290 mosm/kg (275-300); CALCIUM 8.8 mg/dL (8.5-10.1); CARBON DIOXIDE 25.7 mmol/L (21.0-32.0); CHLORIDE - SERUM 107 mmol/L (98-107); CREATININE - SERUM 0.8 mg/dL (0.6-1.3); GLUCOSE 120 mg/dL (74-106); POTASSIUM - SERUM 4.2 mmol/L (3.5-5.1); SODIUM 144 mmol/L (136-145); UREA NITROGEN 21 mg/dL (7-18); eGFR NON AFRICAN AMERICAN 77 mL/min (90-120)
[~2016-12-20] VITALS: Ht 154.9 cm; Wt 108.9 kg
[~2016-12-20 05:34] MED LIST changes: +COLCRYS0.6 MG PO; +NAPROSYN500 MG PO; +ULORIC40 MG PO; +XYZAL5 MG PO; +ZOLOFT50 MG PO
[2016-12-20 07:33] VITALS: BP 113/68; Ht 154.9 cm; Wt 108.9 kg
--- NOTE | 2016-12-20 14:00 | NUR ---
IV DC'D WITH TIP INTACT. NO REDNESS OR SWELLING NOTED TO SITE. DISCHARGE INSTRUCTIONS REVIEWED, VERBALIZED UNDERSTANDING. DC'D VIA WC WITH STAFF AND
--- NOTE | 2016-12-20 14:10 | OP ---
PATIENT NAME: MELISSA HECTOR MEDICAL RECORD: [id number] :57 LOCATION:D.OPS ADMISSION DATE: SURGEON: ANISHA EMANUEL MD DATE OF OPERATION: 12/20/2016 SURGEON: Dr. Anisha Emanuel. ANESTHESIA: General anesthesia by Ludivina Majano CRNA. PREOPERATIVE DIAGNOSES: Previous pubovaginal sling mesh erosion, stress urinary incontinence. FINDINGS: Left pubovaginal sling mesh arm had been entirely removed by Dr. Holman. The right pubovaginal mesh sling was still present, but there was no graft erosion. Cystoscopy showed single ureteral orifices. No bladder tumors were seen. No bladder or urethral injury or erosion of the previous pubovaginal sling mesh. PROCEDURES: Cystoscopy, removal of the pubovaginal sling mesh, placement of new pubovaginal mesh sling via transobturator approach. Asana. SPECIMENS: Old pubovaginal sling mesh. ESTIMATED BLOOD LOSS: Minimal. CLINICAL HISTORY: This is a 61-year-old female, A0. She has diabetes and she has coronary artery disease with 5 coronary artery stents placed in 2014. She is being seen by Dr. Pearson. She remains on Brilinta as an anticoagulant. We received cardiac clearance from Dr. Pearson to have this procedure done and her Brilinta was held. She lived in [place] and she had a pubovaginal sling placed with mesh in 2006. In 2013, the mesh had eroded into the vagina. Dr. Holman removed what he could in 2013, but he told the patient that he did not remove all of it. In the interim, she has ongoing stress urinary incontinence. When I examined her, she did have stress urinary incontinence. There was a positive Bimal test. There was still palpable edges of the mesh sling present in the anterior vaginal wall. I could not see if there was an actual erosion into the vaginal mucosa. It was quite tender at the site of the mesh with potential erosion. She also has a grade I cystocele. She has had a hysterectomy in the past. She comes today to have the mesh removed. She was asking if she could have a new pubovaginal sling placed to control the stress incontinence. I informed her that it would all depend on whether or not she had graft erosion or not. If there was a graft erosion, I would have to remove the old eroded mesh and then come back at a later date to place the sling. If there is no graft erosion, then we could actually place the sling today once I removed the old mesh. ALLERGIES: SHE IS ALLERGIC TO CODEINE, CYCLOBENZAPRINE, ERYTHROMYCIN AND PERCOCET. She was given Ancef 2 grams IV manager of broadcast content to the OR. DESCRIPTION OF PROCEDURE: The patient was given a general anesthetic. She was placed in the dorsal lithotomy position and prepped and draped. She has a lot of urinary scald on the vulva and the peritoneum from her urinary incontinence. We placed the weighted speculum to hold down the posterior vaginal wall. The OPERATIVE REPORT [id number] MELISSA HECTOR lateral castelan were retracted using #2-0 nylon sutures through the labia majora. The stay sutures were anchored to the medial thighs. At this point, we could see the old anterior vaginal mucosa incisions. The mesh was palpable at lateral fornices on the right side. However, I did not see any obvious sign of graft erosion. We started with cystoscopy. A 17-[place] cystoscope with 30-degree lens was used. No graft erosion into the bladder was seen. The anterior vaginal wall at the level of the sling was infiltrated with Pitressin solution. Twenty units of Pitressin was dissolved in 100 mL of injectable saline. This was injected for hydrodissection in the anterior vaginal wall and the level of the urethra. A 1.5 cm vertical incision was made in the anterior vaginal wall midline. Vaginal mucosal flaps were raised initially using tenotomy scissors to raise the edge of the flap up. Once we were underway, Metzenbaum scissors were used. On the left side, I could dissect the entire space to the left obturator membrane and no sling mesh was palpable. On the right side, we came across her old previous sling. I placed a hemostat on the tail end of that sling and we bluntly dissected the sling to its insertion in the obturator membrane on the right side. A right angle clamp was placed right up against the exit from the obturator membrane and by pulling sharply on this right angle clamp, we were able to completely free the previous mesh sling. This specimen was removed and sent to pathology for identification. At this point, with no signs of graft erosion or graft exposure, she was a candidate for new pubovaginal sling. Therefore, I landmark her for a transobturator insertion of a new sling. The landmark is inferior to the insertion of the adductor longus tendon. A stab incision was made on either side in the groin crease. The trocars were placed through the apex of the obturator membrane going behind the pubic bone. The tip then exited through the vaginal dissection space. The end of the sling was placed on a notch in the tip and the needle was withdrawn to pull the sling through. This was done on each side. There is a tab indicating the midpoint of the sling. This tab was placed under the midpoint of the urethra. At this point, we removed the Faulkner catheter and cystoscopy was again done. Again, we found no injury to the bladder from the dissection. The bladder was left full. I was able to push on the bladder suprapubically and see some leakage of urine. By adjusting the sling tension, we could then come to the point where the sling occluded any further leakage of urine when the suprapubic area was pushed. At this point, the central tab was cut off and all the parts entirely removed. The clear plastic sheath material on either side of the graft arms was completely removed by pulling the tip of the graft. This left the bare graft exposed which exited the skin through the groin incisions. The graft was then cut where it exited the skin at the groin incisions. The wound was irrigated out with sterile saline. The vaginal incision was closed using running 4-0 Monocryl. A simple interrupted 4-0 Monocryl sutures were used to close the groin incisions. The stay sutures of #2 nylon were also cut out and removed entirely. A vaginal packing consisting of Kerlix with Silvadene cream was placed into the vagina. This packing will be removed prior to her discharge home today. She will be sent home with a prescription for Toradol and will see her in followup in clinic next week to check on her continence and ability to empty her bladder fully. TRANSINT:[id number] Voice Confirmation ID: [id number] DOCUMENT ID: [id number] OPERATIVE REPORT [id number] MELISSA HECTOR, ANISHA Guerrero MD at 8112 CC: [id number] DICTATION DATE: 12/20/16 1145 PRINCIPAL CLERK TYPIST: 12/20/16 1244 [facility] [address] [place] [id number]
== END 2016-12-20 14:00 | disposition home or self-care (01) ==
LOC: D.OPS 05:34 → D.PAN 08:10 → D.OPS 08:10 → D.PAN 10:00 → D.OPS 14:00
PROVIDERS: Anesthesiology
DX: T83.711A Erosion of implanted vaginal mesh to surrounding organ or tissue, initial encounter (principal); I25.10 Atherosclerotic heart disease of native coronary artery without angina pectoris; I10 Essential (primary) hypertension; Z95.5 Presence of coronary angioplasty implant and graft; E66.01 Morbid (severe) obesity due to excess calories; Z68.42 Body mass index [BMI] 45.0-49.9, adult; N39.3 Stress incontinence (female) (male); Z01.812 Encounter for preprocedural laboratory examination

== ENCOUNTER → 2017-04-12 09:19 | Outpatient (CLI) | payer MEDICARE ==
[2016-12-20 07:33] VITALS: BMI 45.4
== END | disposition home or self-care (01) ==
LOC: D.CT 09:19
DX: R22.0 Localized swelling, mass and lump, head (principal)

== ENCOUNTER → 2017-07-29 08:54 | Outpatient (CLI) | payer MEDICARE ==
[2016-12-20 07:33] VITALS: BMI 45.4
[~2017-07-29 08:54] MED LIST changes: +BACTRIM DS TABL1 TAB PO; +DIFLUCAN100 MG PO; +DILAUDID2 MG PO; +MIRALAX527 GM PO; +NYSTATIN ORAL SU5 ML PO; +PREDNISONE20 MG PO; +PROAIR HFA8.5 GM INH; +RYNEX DM LIQUI473 ML PO
== END | disposition home or self-care (01) ==
LOC: D.NM 08:54
DX: Z96.652 Presence of left artificial knee joint (principal)

== ENCOUNTER → 2017-08-01 12:22 | Outpatient (CLI) | payer MEDICARE ==
[2016-12-20 07:33] VITALS: BMI 45.4
[2017-08-01 15:07] LABS: BASOPHILS 0.2 % (0-2); EOSINOPHILS 3.7 % (0-7); HEMATOCRIT 36.6 % (36.0-48.0); HEMOGLOBIN 11.3 g/dL (12-16); IMMATURE GRANULOCYTES 0.2 % (0-5); LYMPHOCYTES 22.6 % (15-50); MCH 27.8 pg (26.0-34.0); MCHC 30.9 g/dL (31.0-37.0); MCV 90.1 fL (80.0-100.0); MEAN PLATELET VOLUME 9.4 fL (7.4-10.4); MONOCYTES 7.4 % (2-11); NEUTROPHILS 65.9 % (40-80); RBC 4.06 10x6/uL (4.00-5.40); WBC 4.3 10x3/uL (4.8-10.8)
[2017-08-01 15:09] LABS: PLATELET COUNT 256 10x3/uL (130-400)
[2017-08-01 18:14] LABS: ERYTHROCYTE SEDIMENTATION RATE 82 mm/hr (0-30)
== END | disposition home or self-care (01) ==
LOC: D.ER 12:22
PROVIDERS: Nurse Practitioner Family
DX: M25.562 Pain in left knee (principal)

== ENCOUNTER → 2017-08-16 14:11 | Outpatient (CLI) | payer MEDICARE ==
[2016-12-20 07:33] VITALS: BMI 45.4
== END | disposition home or self-care (01) ==
LOC: D.LABREF 14:11
DX: M25.562 Pain in left knee (principal); Z11.8 Encounter for screening for other infectious and parasitic diseases

== ENCOUNTER 2017-08-21 10:00 | Inpatient (IN) | payer MEDICARE ==
[~2017-08-21] VITALS: Ht 156.2 cm; Wt 95.5 kg
--- NOTE | ~2017-08-21 | OP ---
PATIENT NAME: MELISSA HECTOR MEDICAL RECORD: [id number] :57 LOCATION:[facility] ADMISSION DATE:08/26/17 SURGEON: HERMAN MCDANIELS MD DATE OF OPERATION: 08/26/2017 PREOPERATIVE DIAGNOSIS: Painful total knee arthroplasty on the left knee. 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 PROCEDURE: Excisional debridement with removal of infected total knee and placement of antibiotic cement spacer. SURGEON: Herman Mcdaniels MD ANESTHESIA: General. INTRAOPERATIVE COMPLICATIONS: Essentially none. SUMMARY OF PATHOLOGIC FINDINGS: The patient had developed a swollen area in her infrapatellar bursa and upon incising this, cultures were taken. Subsequently, after cultures were taken, antibiotics were given and the leg was elevated, exsanguinated and tourniquet was inflated. Two more sets of cultures were taken after this. The tibial cortex in front of the tibial component had what appeared to be osteomyelitis. There was also an area of apparent osteomyelitis underneath the tibial component and substantial osteomyelitis underneath the patellar component. The distal femoral component did not appear to have gross osteomyelitis; however, it clearly had signs of infection. OPERATIVE SUMMARY IN DETAIL: After obtaining the appropriate preoperative orthopedic surgery consent as well as anesthetic consultation, evaluation and clearance, the patient was brought to the operating room and placed in the operating table in supine position. After general laryngeal mask airway was administered, tourniquet was placed on the proximal aspect of left lower extremity. Left lower extremity was then prepped and draped in a routine sterile fashion. The procedure as above was noted. After the leg was elevated and exsanguinated, the incision was then carried out for a paramedian arthrotomy. Upon incising the paramedian arthrotomy and dissecting down, the anterior tibial findings were noted. Further cultures were taken. One was taken with a curettage, listed as a tissue culture. The other was more deep fluid culture. At this point, the polyethylene was taken out. The distal femur was removed with very little degree of difficulty with minimal bone loss using the thin flexible osteotomes. Likewise, the proximal tibia component was removed relatively easily with little bone loss. There did, however, seem to be areas of osteomyelitic changes underneath the tibial baseplate. Having completed this, althought final cultures came back, no organisms seen, it is my gestalt that the patient does not need to have a knee replacement today and will need 12 weeks of IV antibiotics as I think these cultures are likely to be positive. The bone ends were curettaged and rongeurs were used to clear all the bone ends of all necrotic-appearing tissue. A bone cement block laden with vancomycin was placed and doughy and it was allowed to harden while the knee was held in appropriate alignment. The paramedian arthrotomy was closed with #2 Ethibond followed by #1 Vicryl, 2-0 Vicryl, and skin miranda. Sterile dressings were applied. The patient was awakened and taken to the recovery room in stable condition. Final needle and sponge counts were correct. OPERATIVE REPORT [id number] TAWNYMELISSARAKESH STERLING TRANSINT:[id number] Voice Confirmation ID: [id number] DOCUMENT ID: [id number] ARSLAN COPELAND, HERMAN BROOKS at 1424 CC: [id number] DICTATION DATE: 08/26/17 1251 BICYCLE COURIER: 08/26/17 1310 ADM IN [facility] [address] [place] [address]
[~2017-08-21 10:00] MED LIST changes: -DIFLUCAN100 MG PO; -DILAUDID2 MG PO; -NYSTATIN ORAL SU5 ML PO; -PROAIR HFA8.5 GM INH
[2017-08-21 11:26] LABS: BASOPHILS 0.2 % (0-2); EOSINOPHILS 0.3 % (0-7); HEMOGLOBIN 11.7 g/dL (12-16); IMMATURE GRANULOCYTES 1.4 % (0-5); LYMPHOCYTES 10.3 % (15-50); MCH 27.1 pg (26.0-34.0); MCHC 30.8 g/dL (31.0-37.0); MCV 88.2 fL (80.0-100.0); MEAN PLATELET VOLUME 8.9 fL (7.4-10.4); MONOCYTES 4.2 % (2-11); NEUTROPHILS 83.6 % (40-80); PLATELET COUNT 269 10x3/uL (130-400); RBC 4.31 10x6/uL (4.00-5.40); RDW 14.6 % (11.5-14.5); WBC 11.5 10x3/uL (4.8-10.8)
[2017-08-21 11:36] LABS: APPEARANCE CLEAR (CLEAR); BILIRUBIN NEGATIVE (NEGATIVE); COLOR YELLOW (YELLOW); GLUCOSE NEGATIVE (NEGATIVE); KETONE NEGATIVE (NEGATIVE); NITRITE NEGATIVE (NEGATIVE); PROTEIN NEGATIVE (NEGATIVE)
[2017-08-21 11:41] LABS: CALCIUM 9.6 mg/dL (8.5-10.1); CARBON DIOXIDE 30.8 mmol/L (21.0-32.0); CREATININE - SERUM 0.9 mg/dL (0.6-1.3); POTASSIUM - SERUM 4.8 mmol/L (3.5-5.1)
[2017-08-21] MEDS ORDERED: PROAIR HFA8.5 GM INH (11:53)
[2017-08-26 09:04] VITALS: BP 129/61; BMI 39.1
[2017-08-26 10:30] LABS: APTT 25.4 SECONDS (22.8-39.4); INR 0.97 (0.85-1.17); PROTIME 12.5 SECONDS (11.6-15.0)
[2017-08-26 13:58] VITALS: BP 115/60
[2017-08-26 17:32] VITALS: BP 110/68
[2017-08-26 17:50] VITALS: Ht 156.2 cm; Wt 95.5 kg
[2017-08-26 20:38] VITALS: BP 114/76
[2017-08-27 04:06] VITALS: BP 106/57
[2017-08-27 06:07] LABS: HEMATOCRIT 30.9 % (36.0-48.0); HEMOGLOBIN 9.4 g/dL (12-16); MCH 27.2 pg (26.0-34.0); MCHC 30.4 g/dL (31.0-37.0); MCV 89.6 fL (80.0-100.0); MEAN PLATELET VOLUME 9.3 fL (7.4-10.4); RBC 3.45 10x6/uL (4.00-5.40); RDW 15.2 % (11.5-14.5); WBC 7.5 10x3/uL (4.8-10.8)
[2017-08-27 09:02] VITALS: BP 107/62
[2017-08-27 13:15] VITALS: BP 91/51
[2017-08-27 17:08] VITALS: BP 97/55
[2017-08-27 22:24] VITALS: BP 105/54
[2017-08-28 06:01] VITALS: BP 113/74
[2017-08-28 07:09] LABS: CALC OSMOLALITY 290 mosm/kg (275-300); CALCIUM 8.7 mg/dL (8.5-10.1); CARBON DIOXIDE 29.1 mmol/L (21.0-32.0); CHLORIDE - SERUM 108 mmol/L (98-107); CREATININE - SERUM 0.8 mg/dL (0.6-1.3); GLUCOSE 142 mg/dL (74-106); POTASSIUM - SERUM 4.4 mmol/L (3.5-5.1); SODIUM 144 mmol/L (136-145); UREA NITROGEN 18 mg/dL (7-18); eGFR NON AFRICAN AMERICAN 77 mL/min (90-120)
[2017-08-28 07:28] LABS: HEMATOCRIT 29.4 % (36.0-48.0); HEMOGLOBIN 8.9 g/dL (12-16); MCH 27.4 pg (26.0-34.0); MCHC 30.3 g/dL (31.0-37.0); MCV 90.5 fL (80.0-100.0); MEAN PLATELET VOLUME 9.5 fL (7.4-10.4); RBC 3.25 10x6/uL (4.00-5.40); RDW 15.8 % (11.5-14.5)
[2017-08-28 07:43] LABS: WBC 5.5 10x3/uL (4.8-10.8)
[2017-08-28 08:24] VITALS: BP 106/56
[2017-08-28 12:02] VITALS: BP 151/70
[2017-08-28 16:29] VITALS: BP 99/51
[2017-08-28 21:54] VITALS: BP 118/60
[2017-08-29 02:37] VITALS: BP 116/60
[2017-08-29 05:01] VITALS: BP 118/69
[2017-08-29 09:02] VITALS: BP 109/74
[2017-08-29 13:57] VITALS: BP 112/74
[2017-08-29 17:20] VITALS: BP 106/63
[2017-08-29 21:15] VITALS: BP 107/53
[2017-08-30 04:08] VITALS: BP 145/84
[2017-08-30 09:30] VITALS: BP 99/64
[2017-08-30 13:03] VITALS: BP 125/70
[2017-08-30 16:37] VITALS: BP 108/55
[2017-08-30 21:36] VITALS: BP 116/59
[2017-08-31 01:03] VITALS: BP 123/72
[2017-08-31 04:48] LABS: BASOPHILS 0.2 % (0-2); EOSINOPHILS 5.6 % (0-7); HEMATOCRIT 30.6 % (36.0-48.0); HEMOGLOBIN 9.2 g/dL (12-16); IMMATURE GRANULOCYTES 0.3 % (0-5); LYMPHOCYTES 20.1 % (15-50); MCH 27.2 pg (26.0-34.0); MCHC 30.1 g/dL (31.0-37.0); MCV 90.5 fL (80.0-100.0); MEAN PLATELET VOLUME 8.6 fL (7.4-10.4); MONOCYTES 8.9 % (2-11); NEUTROPHILS 64.9 % (40-80); PLATELET COUNT 234 10x3/uL (130-400); RBC 3.38 10x6/uL (4.00-5.40); RDW 15.8 % (11.5-14.5); WBC 6.4 10x3/uL (4.8-10.8)
[2017-08-31 05:05] LABS: CALC OSMOLALITY 284 mosm/kg (275-300); CALCIUM 8.8 mg/dL (8.5-10.1); CARBON DIOXIDE 31.8 mmol/L (21.0-32.0); CHLORIDE - SERUM 105 mmol/L (98-107); CREATININE - SERUM 0.8 mg/dL (0.6-1.3); GLUCOSE 132 mg/dL (74-106); POTASSIUM - SERUM 4.2 mmol/L (3.5-5.1); SODIUM 142 mmol/L (136-145); UREA NITROGEN 13 mg/dL (7-18); eGFR NON AFRICAN AMERICAN 77 mL/min (90-120)
[2017-08-31 05:33] VITALS: BP 127/68
[2017-08-31 09:10] VITALS: BP 147/74
[2017-08-31 13:25] VITALS: BP 97/50
[2017-08-31 17:10] VITALS: BP 133/66
[2017-08-31 20:00] VITALS: BP 111/66
[2017-09-01] VITALS: BP 104/62
[2017-09-01 04:00] VITALS: BP 118/73
[2017-09-01 09:15] VITALS: BP 102/58
[2017-09-01 11:33] VITALS: BP 118/63
[2017-09-01 16:10] VITALS: BP 101/62
[2017-09-01 22:40] VITALS: BP 148/72
[2017-09-02 03:53] VITALS: BP 157/75
[2017-09-02 08:23] VITALS: BP 126/66
[2017-09-02] MEDS ORDERED: ELIQUIS2.5 MG PO (08:36)
[2017-09-02] MEDS ORDERED: DIFLUCAN100 MG PO (08:36)
[2017-09-02] MEDS ORDERED: NYSTATIN ORAL SU5 ML PO (08:36)
[2017-09-02] MEDS ORDERED: DILAUDID2 MG PO (08:37)
[2017-09-02 12:09] VITALS: BP 141/78
== END 2017-09-02 13:05 | DRG 464 ==
LOC: D.SDCHOLD 08-26 08:25 → D.MS 08-26 08:25 → D.SDCHOLD 08-26 10:00 → D.MS 08-26 13:39 → D.SDCHOLD 08-26 14:05 → D.MS 08-29 14:29
PROVIDERS: Orthopaedic Surgery; Student in an Organized Health Care Education/Training Program
PROC: 0QBH0ZZ Excision of Left Tibia, Open Approach (ICD-10-PCS; 2017-08-26)
PROC: 0SHD08Z Insertion of Spacer into Left Knee Joint, Open Approach (ICD-10-PCS; 2017-08-26)
PROC: 0SPD0JZ Removal of Synthetic Substitute from Left Knee Joint, Open Approach (ICD-10-PCS; principal; 2017-08-26 10:30)
PROC: 0QBF0ZZ Excision of Left Patella, Open Approach (ICD-10-PCS; 2017-08-26 10:30)
PROC: 02HV33Z Insertion of Infusion Device into Superior Vena Cava, Percutaneous Approach (ICD-10-PCS; 2017-08-29)
PROC: B548ZZA Ultrasonography of Superior Vena Cava, Guidance (ICD-10-PCS; 2017-08-29)
DX: T84.54XA Infection and inflammatory reaction due to internal left knee prosthesis, initial encounter (principal); M86.9 Osteomyelitis, unspecified; E11.69 Type 2 diabetes mellitus with other specified complication; I10 Essential (primary) hypertension; I25.10 Atherosclerotic heart disease of native coronary artery without angina pectoris; J44.9 Chronic obstructive pulmonary disease, unspecified; K58.9 Irritable bowel syndrome, unspecified; E78.5 Hyperlipidemia, unspecified; K59.00 Constipation, unspecified; Z87.891 Personal history of nicotine dependence

== ENCOUNTER → 2017-09-23 13:13 | Outpatient (CLI) | payer MEDICARE ==
[2017-08-26 17:50] VITALS: BMI 39.1
[~2017-09-23 13:13] MED LIST changes: +DIFLUCAN100 MG PO; +DIFLUCAN200 MG; +DILAUDID2 MG PO; +MYCAMINE 100MG100 M1 IV; +NICODERM C1 PATCH .3 TRANSDERM; +NYSTATIN ORAL SU5 ML PO; +PRILOSEC2.5 MG PO; +PROAIR HFA8.5 GM INH
[2017-09-23 19:36] LABS: EOS BF 1 %; MACROPHAGES BF 6 %; MESOTHELIALS BF 2 %; NEUT - BF 63 %
== END | disposition home or self-care (01) ==
LOC: D.US 13:13
PROVIDERS: Orthopaedic Surgery
DX: M25.562 Pain in left knee (principal)

== ENCOUNTER → 2017-10-01 17:06 | Outpatient (CLI) | payer MEDICARE ==
[2017-08-26 17:50] VITALS: BMI 39.1
[2017-10-03 13:18] LABS: HEPATITIS C ANTIBODY <0.1 (0.0-0.9)
[2017-10-03 16:17] LABS: ANA REFLEX - DIRECT Negative (Negative)
[2017-10-04 15:23] LABS: ANCA - ANTIMYELOPEROXIDASE <9.0 U/mL (0.0-9.0); ANCA - ANTIPROTEINASE 3 <3.5 U/mL (0.0-3.5); ANCA - ATYPICAL <1:20 titer (Neg:<1:20); ANCA - CYTOPLASMIC <1:20 titer (Neg:<1:20); ANCA - PERINUCLEAR <1:20 titer (Neg:<1:20)
== END | disposition home or self-care (01) ==
LOC: D.LABREF 17:06
PROVIDERS: Orthopaedic Surgery
DX: T84.7XXA Infection and inflammatory reaction due to other internal orthopedic prosthetic devices, implants and grafts, initial encounter (principal); Z51.81 Encounter for therapeutic drug level monitoring; Z79.2 Long term (current) use of antibiotics

== ENCOUNTER 2017-10-21 09:50 | Inpatient (IN) | payer MEDICARE ==
[~2017-10-21] VITALS: Ht 156.2 cm; Wt 90.9 kg
--- NOTE | ~2017-10-21 | OP ---
PATIENT NAME: MELISSA PIEDRA MEDICAL RECORD: [id number] :57 LOCATION:[facility]- ADMISSION DATE:10/21/17 SURGEON: HERMAN MCDANIELS MD DATE OF OPERATION: 10/21/2017 PREOPERATIVE DIAGNOSIS: Infected left knee. POSTOPERATIVE DIAGNOSIS: Infected left knee. PROCEDURE: Antibiotic spacer exchange with I&D of skin, subcutaneous tissue, portions of fat, fascia, muscle and bone, 80 cm in aggregate. SURGEON: Herman Mcdaniels MD ANESTHESIA: General. INTRAOPERATIVE COMPLICATIONS: None. SUMMARY OF PATHOLOGIC FINDINGS: Indeed, the patient did have what appeared to be 3 areas of purulent abscesses in the soft tissues themselves consistent with the diagnosis of secondary infection. INDICATIONS: Ms. Piedra is a 62-year-old female who came in with a painful total knee. At the time of surgery, she was found to have what was thought to be an infection. Eventually, she grew out Kathy glabrata. She was on antifungal therapy for this; however, her inflammatory markers only when up and never actually got below high level. Aspirate was taken, those results have failed to yield any organisms; however, obviously today's surgery shows that she is definitely still infected consistent with her continued high inflammatory markers that is a sed rate and a C-reactive protein. OPERATIVE SUMMARY IN DETAIL: After obtaining the appropriate preoperative orthopedic surgery consent as well as anesthetic consultation, evaluation and clearance, the patient was brought to the operating room and placed on the operating table in supine position. After general laryngeal mask airway was administered, tourniquet was placed on the proximal aspect of the right lower extremity. Right lower extremity was then prepped and draped in routine sterile fashion. The leg was elevated and exsanguinated, tourniquet was inflated to 350 mmHg. Previously utilized incision was taken down for paramedian arthrotomy. At this point, on dissecting down to the tissues, abscess area was found in the inferior medial aspect of the wound, the superior lateral aspect above the vastus lateralis and one in the superior medial aspect of the wound more along the lateral side. Cultures were taken. At this point, the previously placed antibiotic spacer was chipped out. All cement was removed and then curettage and rongeur removal of any nonviable or necrotic appearing tissue was taken so that good bleeding tissue was at the surface. Approximately 12 liters of saline was irrigated in pulsatile lavage fashion throughout the entire wound and into the cavitary recesses. Having completed this, a vancomycin laden cement spacer was again placed into the knee cavity and allowed to harden in the knee cavity without sticking to the bone. Paramedian arthrotomy was closed with #2 Ethibond. This was followed by #1 Vicryl, 2-0 Vicryl and skin miranda. A Prevena style dressing was placed to attempt at substantial long-term drainage. Having completed this, the tourniquet was deflated. The patient was awakened, taken to the recovery room in stable condition. All final needle and sponge counts were correct. OPERATIVE REPORT [id number] TAWNYMELISSARAKESH STERLING TRANSINT:[id number] Voice Confirmation ID: [id number] DOCUMENT ID: [id number] ARSLAN COPELAND, HERMAN BROOKS at 1547 CC: [id number] DICTATION DATE: 10/21/17 1511 HEALTH COMPANION: 10/21/17 1543 ADM IN [place] [id number] [place] [address]
[~2017-10-21 09:50] MED LIST changes: -MYCAMINE 100MG100 M1 IV
[2017-10-21 10:51] LABS: CALC OSMOLALITY 276 mosm/kg (275-300); CARBON DIOXIDE 32.6 mmol/L (21.0-32.0); CHLORIDE - SERUM 99 mmol/L (98-107); CREATININE - SERUM 0.7 mg/dL (0.6-1.3); GLUCOSE 105 mg/dL (74-106); POTASSIUM - SERUM 3.4 mmol/L (3.5-5.1); SODIUM 140 mmol/L (136-145); UREA NITROGEN 8 mg/dL (7-18); eGFR NON AFRICAN AMERICAN 90 mL/min (90-120)
[2017-10-21 10:56] LABS: HEMATOCRIT 36.1 % (36.0-48.0); HEMOGLOBIN 10.8 g/dL (12-16); MCHC 29.9 g/dL (31.0-37.0); MCV 83.6 fL (80.0-100.0); RBC 4.32 10x6/uL (4.00-5.40); WBC 4.6 10x3/uL (4.8-10.8)
[2017-10-21 12:34] VITALS: BP 160/90; BMI 37.2
[2017-10-21 20:37] VITALS: BP 138/76
[2017-10-21 23:36] VITALS: BP 138/76; BMI 37.2
[2017-10-22 00:41] VITALS: BP 146/74
[2017-10-22 05:55] LABS: HEMATOCRIT 32.8 % (36.0-48.0); HEMOGLOBIN 9.7 g/dL (12-16); MCH 24.5 pg (26.0-34.0); MCHC 29.6 g/dL (31.0-37.0); MCV 82.8 fL (80.0-100.0); MEAN PLATELET VOLUME 9.3 fL (7.4-10.4); RBC 3.96 10x6/uL (4.00-5.40); RDW 15.7 % (11.5-14.5); WBC 4.8 10x3/uL (4.8-10.8)
[2017-10-22 08:15] VITALS: BP 175/80
[2017-10-22 11:49] VITALS: BP 173/88
[2017-10-22 15:15] VITALS: BP 150/77
[2017-10-22 18:26] VITALS: Ht 156.2 cm; Wt 90.9 kg
[2017-10-22 22:26] VITALS: BP 143/77
[2017-10-23 05:44] VITALS: BP 146/86
[2017-10-23 06:38] LABS: ALBUMIN 2.5 g/dL (3.4-5.0); ALKALINE PHOSPHATASE 145 U/L (46-116); ALT (SGPT) 12 U/L (10-68); BILIRUBIN - DIRECT 0.09 mg/dL (0.00-0.30); BILIRUBIN - INDIRECT 0.11 mg/dL (0.00-1.00); CALC OSMOLALITY 279 mosm/kg (275-300); CALCIUM 8.5 mg/dL (8.5-10.1); CARBON DIOXIDE 32.4 mmol/L (21.0-32.0); CHLORIDE - SERUM 104 mmol/L (98-107); CREATININE - SERUM 0.8 mg/dL (0.6-1.3); GLUCOSE 117 mg/dL (74-106); POTASSIUM - SERUM 3.3 mmol/L (3.5-5.1); PROTEIN - SERUM 6.6 g/dL (6.4-8.2); SODIUM 141 mmol/L (136-145); UREA NITROGEN 7 mg/dL (7-18); eGFR NON AFRICAN AMERICAN 77 mL/min (90-120)
[2017-10-23 07:25] LABS: HEMATOCRIT 31.4 % (36.0-48.0); HEMOGLOBIN 9.1 g/dL (12-16); MCH 24.4 pg (26.0-34.0); MCV 84.2 fL (80.0-100.0); MEAN PLATELET VOLUME 9.2 fL (7.4-10.4); RBC 3.73 10x6/uL (4.00-5.40); WBC 3.6 10x3/uL (4.8-10.8)
[2017-10-23 07:46] VITALS: BP 176/84
[2017-10-23 15:43] VITALS: BP 147/69
[2017-10-23 20:00] VITALS: BP 174/69
[2017-10-24 04:00] VITALS: BP 147/81
[2017-10-24 09:10] VITALS: BP 177/76
[2017-10-24 12:22] VITALS: BP 166/77
[2017-10-24 16:13] VITALS: BP 127/67
[2017-10-24 20:29] VITALS: BP 153/60
[2017-10-25 00:21] VITALS: BP 171/83
[2017-10-25 04:06] VITALS: BP 176/79
[2017-10-25 05:31] LABS: BASOPHILS 0.3 % (0-2); EOSINOPHILS 7.8 % (0-7); HEMATOCRIT 31.5 % (36.0-48.0); LYMPHOCYTES 30.1 % (15-50); MCH 24.3 pg (26.0-34.0); MCHC 28.6 g/dL (31.0-37.0); MCV 84.9 fL (80.0-100.0); MEAN PLATELET VOLUME 9.2 fL (7.4-10.4); NEUTROPHILS 52.8 % (40-80); PLATELET COUNT 241 10x3/uL (130-400); RBC 3.71 10x6/uL (4.00-5.40); RDW 16.2 % (11.5-14.5); WBC 3.2 10x3/uL (4.8-10.8)
[2017-10-25 06:12] LABS: CALC OSMOLALITY 289 mosm/kg (275-300); CALCIUM 8.1 mg/dL (8.5-10.1); CHLORIDE - SERUM 108 mmol/L (98-107); CREATININE - SERUM 0.7 mg/dL (0.6-1.3); GLUCOSE 122 mg/dL (74-106); POTASSIUM - SERUM 3.1 mmol/L (3.5-5.1); SODIUM 146 mmol/L (136-145); UREA NITROGEN 7 mg/dL (7-18); eGFR NON AFRICAN AMERICAN 90 mL/min (90-120)
[2017-10-25 12:44] VITALS: BP 140/70
[2017-11-22] MEDS ORDERED: HYDROCODONE-APA1 TAB PO (12:01)
== END 2017-10-25 14:09 | DRG 549 ==
LOC: D.MS 09:50 → D.SDCHOLD 09:50 → D.MS 17:47
PROVIDERS: Anesthesiology; Orthopaedic Surgery; Student in an Organized Health Care Education/Training Program
PROC: 0SPD08Z Removal of Spacer from Left Knee Joint, Open Approach (ICD-10-PCS; principal; 2017-10-21 12:15)
PROC: 0SHD08Z Insertion of Spacer into Left Knee Joint, Open Approach (ICD-10-PCS; 2017-10-21 12:15)
DX: M00.9 Pyogenic arthritis, unspecified (principal); B37.89 Other sites of candidiasis; I10 Essential (primary) hypertension; I25.10 Atherosclerotic heart disease of native coronary artery without angina pectoris; M19.90 Unspecified osteoarthritis, unspecified site; F17.200 Nicotine dependence, unspecified, uncomplicated

== ENCOUNTER 2017-10-25 11:52 | Inpatient (IN) | payer MEDICARE ==
[~2017-10-25] VITALS: Ht 156.2 cm; Wt 90.7 kg
--- NOTE | ~2017-10-25 | RHP ---
PATIENT: MELISSA HECTOR MEDICAL RECORD: [id number] ACCOUNT: [id number] LOCATION:[facility] : 57 ADMISSION DATE: 10/25/17 REHABILITATION HISTORY AND PHYSICAL EXAMINATION POST ADMISSION PHYSICIAN EXAMINATION DATE OF ADMISSION: 10/25/2017 ADMITTING DIAGNOSIS: Disuse myopathy. 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 She was discharged to a skilled facility and was on antifungal therapy, Diflucan for this. However, her inflammatory markers only went up and never actually got below a very high level. Aspirate was obtained. These results failed to yield any organism; however, during her surgery on 10/21/2017, findings showed that she definitely still had an infected knee consistent with her continued high inflammatory markers with a sed rate, C-reactive protein. Surgery showed the patient what appeared to be 3 areas of purulent abscesses in the soft tissues themselves consistent with a diagnosis of secondary infection. ID was consulted. Her medication was changed to micafungin 100 mg IV daily prior surgery in August. She was living at home with her spouse and was independent with ADLs and mobility, using assistance device only for long distances secondary to pain. Currently, she is mod to max assist with ADLs and mobility. She has had prolonged immobility, progressive generalized weakness, especially in lower extremities affecting her tolerance to PT. She is very fatigued, has limited flexion, extension of her lower extremities has proximal muscle strength is also decreased. She is nonweightbearing on her left leg, has a wound VAC. She is on 3 liters of O2 continuous. Has pain level of 9/10. She has a PICC line for continued IV antifungal medication. She wants to regain her strength in her right leg and upper extremity, so she can discharge home with her family. Continue on IV treatment if necessary. COMORBIDITIES: In this patient include infected left total knee with Kathy glabrata, failed therapy with fluconazole, status post antibiotic spacer, neuropathy, hypertension, stents, coronary artery disease, bradycardia, hypertension, hyperlipidemia, hypokalemia, CHF, COPD, diabetes, joint stiffness, functional deficit, weakness, urinary incontinence, anxiety and depression. PAST MEDICAL HISTORY: Significant for neuropathy, got a history of hypertension, stent/angioplasty, coronary artery disease. She got a history of lung problems including asthma. She has got history of kidney stones and has had incontinence, got a history of arthritis, eczema and anxiety. PAST SURGICAL HISTORY: Includes , appendectomy, hysterectomy, knee replacement, bladder sling, kidney stone removal, right knee replacement and revision and a bladder sling removal. ALLERGIES: CODEINE, PERCOCET, ACETAMINOPHEN, FLEXERIL, AND ERYTHROMYCIN. CURRENT MEDICATIONS: Include Uloric 40 mg daily, Linzess 290 mcg daily, Nicoderm patch 21 mcg daily. She is on potassium chloride ER 10 mEq daily. She HISTORY AND PHYSICAL [id number] TAWNYMELISSA STERLING is on micafungin injection 100 mg every 24 hours, Ventolin 2 puffs every 4 hours p.r.n., Eliquis 2.5 mg b.i.d., Lipitor 20 mg at bedtime, Neurontin 600 mg t.i.d., Dilaudid 4 mg every 4 hours p.r.n. pain, Naprosyn 500 mg b.i.d., Desyrel 300 mg at bedtime and Colace 100 mg b.i.d. HABITS: No current alcohol or tobacco use. FAMILY HISTORY: Noncontributory. SOCIAL HISTORY: The patient hopes to return back home with her spouse and get back to her prior level of functioning. REVIEW OF SYSTEMS: GENERAL: Does complain of weakness and fatigue. HEENT: Denies cold, cough, or congestion. CARDIOVASCULAR: Denies chest pain. PHYSICAL EXAMINATION: VITAL SIGNS: Stable. She is afebrile. Generally, an obese female in no acute distress, alert upon exam. HEENT: Normocephalic and atraumatic. Mucosa moist. NECK: Supple without adenopathy. LUNGS: Clear at this time. HEART: Regular rate and rhythm. ABDOMEN: Benign. EXTREMITIES: Does have a wound VAC and appropriate postop swelling noted. NEUROLOGIC: Does have noted weakness. LABORATORY DATA: White count is 2.8, H&H of 7.5 and 25.7 and platelet count is 215. Sodium 148, potassium 2.5, BUN and creatinine 7 and 0.5 and blood sugar is noted to be 95. ASSESSMENT: This 62-year-old female patient admitted to rehab with a working diagnosis of debility secondary to failed total knee replacement and infection with a fungal-type infection. The patient has potential make improvement. We instituted the following multidisciplinary therapies include, but not limited to physical, occupational, respiratory, speech, nutritional services, prosthetics and orthotics. Given her complex medical condition and risks for more complications, rehabilitation services cannot be provided at a low level of care such as care home facility. PLAN: 1. Admit to [facility] for intensive inpatient therapy to include the following disciplines: A. Physical therapy to improve gait, all transfer skills and bed mobility to a modified independent level. B. Occupational therapy to a modified independent level. C. Case management to assist with discharge planning and placement options. D. Nutrition to assist with nutritional needs. E. Rehabilitation nursing to assist in monitoring the patient's underlying medical conditions and to assist with any type of bowel or bladder management. 2. The patient's current medication and medical care will be continued. 3. The patient will be placed on standard fall precautions. 4. Watch her white count, her hemoglobin and hematocrit closely. She may need a transfusion. We will reconsult ID if necessary and will follow up on Saturday HISTORY AND PHYSICAL [id number] MELISSA HECTOR a.mEsther or earlier if necessary. TRANSINT:[id number] Voice Confirmation ID: [id number] DOCUMENT ID: [id number] MARQUISE notes whether there has been none or any medical/functional change since admission: - No change since preadmission screen. MARQIUSE attests patient continues to be appropriate for IRF: - Continues to be appropriate. ARNALDO EVANGELISTA MD at 1516 CC: [id number] DICTATION DATE: 10/26/17 1013 DERMATOLOGIST MANAGING PARTNER: 10/26/17 1114 DIS IN 10/31/17 [id number] [place] [address]
[2017-10-25 14:45] VITALS: BP 160/71; BMI 37.2
[2017-10-25 19:00] VITALS: BP 162/75
[2017-10-26 06:23] LABS: CALC OSMOLALITY 291 mosm/kg (275-300); CALCIUM 7.2 mg/dL (8.5-10.1); CARBON DIOXIDE 29.5 mmol/L (21.0-32.0); CHLORIDE - SERUM 111 mmol/L (98-107); GLUCOSE 95 mg/dL (74-106); SODIUM 148 mmol/L (136-145); UREA NITROGEN 7 mg/dL (7-18)
[2017-10-26 06:31] LABS: CREATININE - SERUM 0.5 mg/dL (0.6-1.3); POTASSIUM - SERUM 2.5 mmol/L (3.5-5.1); eGFR NON AFRICAN AMERICAN > 90 mL/min (90-120)
[2017-10-26 06:38] LABS: BASOPHILS 0.4 % (0-2); HEMATOCRIT 25.7 % (36.0-48.0); LYMPHOCYTES 35.9 % (15-50); MCH 24.4 pg (26.0-34.0); MCHC 29.2 g/dL (31.0-37.0); MCV 83.4 fL (80.0-100.0); MEAN PLATELET VOLUME 8.8 fL (7.4-10.4); MONOCYTES 8.8 % (2-11); NEUTROPHILS 48.9 % (40-80); PLATELET COUNT 215 10x3/uL (130-400); RBC 3.08 10x6/uL (4.00-5.40); WBC 2.8 10x3/uL (4.8-10.8)
[2017-10-26 06:39] LABS: HEMOGLOBIN 7.5 g/dL (12-16)
[2017-10-26 08:13] VITALS: Ht 156.2 cm; Wt 90.7 kg
[2017-10-26 09:14] VITALS: BP 139/73
[2017-10-26 20:30] VITALS: BP 166/85
[2017-10-27 05:49] LABS: CALCIUM 8.6 mg/dL (8.5-10.1); CARBON DIOXIDE 31.3 mmol/L (21.0-32.0); CHLORIDE - SERUM 107 mmol/L (98-107); CREATININE - SERUM 0.6 mg/dL (0.6-1.3); GLUCOSE 121 mg/dL (74-106); SODIUM 146 mmol/L (136-145); eGFR NON AFRICAN AMERICAN > 90 mL/min (90-120)
[2017-10-27 05:53] LABS: CALC OSMOLALITY 291 mosm/kg (275-300); POTASSIUM - SERUM 3.4 mmol/L (3.5-5.1); UREA NITROGEN 12 mg/dL (7-18)
[2017-10-27 08:45] VITALS: BP 175/70
[2017-10-27 19:40] VITALS: BP 135/69
[2017-10-28 06:34] LABS: BASOPHILS 0.3 % (0-2); EOSINOPHILS 8.3 % (0-7); HEMATOCRIT 31.9 % (36.0-48.0); HEMOGLOBIN 9.2 g/dL (12-16); LYMPHOCYTES 35.2 % (15-50); MCH 24.5 pg (26.0-34.0); MCHC 28.8 g/dL (31.0-37.0); MCV 84.8 fL (80.0-100.0); MONOCYTES 9.3 % (2-11); NEUTROPHILS 46.9 % (40-80); PLATELET COUNT 253 10x3/uL (130-400); RBC 3.76 10x6/uL (4.00-5.40); RDW 16.5 % (11.5-14.5); WBC 3.2 10x3/uL (4.8-10.8)
[2017-10-28 07:03] LABS: CALC OSMOLALITY 290 mosm/kg (275-300); CALCIUM 8.7 mg/dL (8.5-10.1); CARBON DIOXIDE 31.6 mmol/L (21.0-32.0); CHLORIDE - SERUM 106 mmol/L (98-107); CREATININE - SERUM 0.7 mg/dL (0.6-1.3); GLUCOSE 123 mg/dL (74-106); POTASSIUM - SERUM 3.8 mmol/L (3.5-5.1); SODIUM 145 mmol/L (136-145); UREA NITROGEN 14 mg/dL (7-18); eGFR NON AFRICAN AMERICAN 90 mL/min (90-120)
[2017-10-28 08:00] VITALS: BP 172/78
[2017-10-28 19:00] VITALS: BP 139/83
[2017-10-29 08:00] VITALS: BP 153/78
[2017-10-29 20:00] VITALS: BP 142/77
[2017-10-30 07:12] LABS: BASOPHILS 0.3 % (0-2); EOSINOPHILS 7.3 % (0-7); HEMATOCRIT 32.1 % (36.0-48.0); HEMOGLOBIN 9.5 g/dL (12-16); IMMATURE GRANULOCYTES 0.3 % (0-5); LYMPHOCYTES 38.7 % (15-50); MCH 24.5 pg (26.0-34.0); MCHC 29.6 g/dL (31.0-37.0); MCV 82.9 fL (80.0-100.0); MEAN PLATELET VOLUME 9.2 fL (7.4-10.4); MONOCYTES 7.9 % (2-11); NEUTROPHILS 45.5 % (40-80); PLATELET COUNT 274 10x3/uL (130-400); RBC 3.87 10x6/uL (4.00-5.40); RDW 16.7 % (11.5-14.5); WBC 3.4 10x3/uL (4.8-10.8)
[2017-10-30 07:23] LABS: C-REACTIVE PROTEIN 1.8 mg/dL (0.0-0.9); CALC OSMOLALITY 286 mosm/kg (275-300); CALCIUM 8.9 mg/dL (8.5-10.1); CARBON DIOXIDE 29.8 mmol/L (21.0-32.0); CHLORIDE - SERUM 106 mmol/L (98-107); CREATININE - SERUM 0.6 mg/dL (0.6-1.3); GLUCOSE 109 mg/dL (74-106); SODIUM 143 mmol/L (136-145); UREA NITROGEN 15 mg/dL (7-18); eGFR NON AFRICAN AMERICAN > 90 mL/min (90-120)
[2017-10-30 08:00] VITALS: BP 160/88
[2017-10-30 08:14] LABS: ERYTHROCYTE SEDIMENTATION RATE 60 mm/hr (0-30)
[2017-10-30] MEDS ORDERED: MYCAMINE 100MG100 M1 IV (12:22)
[2017-10-30 19:00] VITALS: BP 157/81
[2017-10-31 08:00] VITALS: BP 159/78
[2017-10-31] MEDS ORDERED: DILAUDID2 MG PO (08:55)
[2017-11-22] MEDS ORDERED: HYDROCODONE-APA1 TAB PO (12:01)
== END 2017-10-31 11:30 | disposition home health service (06) | DRG 92 ==
LOC: D.SDCHOLD 11:52 → D.REHAB 11:52
PROVIDERS: Emergency Medicine
DX: G72.89 Other specified myopathies (principal); B37.89 Other sites of candidiasis; T84.54XD Infection and inflammatory reaction due to internal left knee prosthesis, subsequent encounter; G62.9 Polyneuropathy, unspecified; Z95.5 Presence of coronary angioplasty implant and graft; I25.10 Atherosclerotic heart disease of native coronary artery without angina pectoris; R00.1 Bradycardia, unspecified; I11.0 Hypertensive heart disease with heart failure; I50.9 Heart failure, unspecified; J44.9 Chronic obstructive pulmonary disease, unspecified; E11.40 Type 2 diabetes mellitus with diabetic neuropathy, unspecified; R32 Unspecified urinary incontinence; F41.8 Other specified anxiety disorders; R53.1 Weakness; M25.60 Stiffness of unspecified joint, not elsewhere classified; E87.6 Hypokalemia; E78.5 Hyperlipidemia, unspecified

== ENCOUNTER → 2017-11-04 21:26 | Outpatient (CLI) | payer MEDICARE ==
[2017-10-26 08:13] VITALS: BMI 37.1
[~2017-11-04 21:26] MED LIST changes: +DILAUDID4 MG PO; +MYCAMINE 100MG100 M1 IV; +MYCOSTATIN CREA15 GM TOPICAL
[2017-11-04 21:37] LABS: BASOPHILS 0.2 % (0-2); EOSINOPHILS 5.7 % (0-7); HEMATOCRIT 35.5 % (36.0-48.0); HEMOGLOBIN 10.4 g/dL (12-16); MCH 25.2 pg (26.0-34.0); MCHC 29.3 g/dL (31.0-37.0); MCV 86.2 fL (80.0-100.0); MONOCYTES 7.3 % (2-11); NEUTROPHILS 59.8 % (40-80); PLATELET COUNT 288 10x3/uL (130-400); RBC 4.12 10x6/uL (4.00-5.40); RDW 16.7 % (11.5-14.5); WBC 5.1 10x3/uL (4.8-10.8)
[2017-11-04 21:45] LABS: CREATININE - SERUM 0.6 mg/dL (0.6-1.3)
[2017-11-04 22:39] LABS: ERYTHROCYTE SEDIMENTATION RATE 47 mm/hr (0-30)
== END | disposition home or self-care (01) ==
LOC: D.LABREF 21:26
PROVIDERS: Student in an Organized Health Care Education/Training Program
DX: T84.093A Other mechanical complication of internal left knee prosthesis, initial encounter (principal)

== ENCOUNTER → 2017-11-11 18:59 | Outpatient (CLI) | payer MEDICARE ==
[2017-10-26 08:13] VITALS: BMI 37.1
[2017-11-11 20:05] LABS: BASOPHILS 0.2 % (0-2); EOSINOPHILS 4.5 % (0-7); HEMATOCRIT 33.1 % (36.0-48.0); HEMOGLOBIN 9.9 g/dL (12-16); MCH 25.1 pg (26.0-34.0); MCHC 29.9 g/dL (31.0-37.0); MEAN PLATELET VOLUME 10.2 fL (7.4-10.4); MONOCYTES 8.3 % (2-11); PLATELET COUNT 256 10x3/uL (130-400); RBC 3.94 10x6/uL (4.00-5.40); RDW 16.7 % (11.5-14.5); WBC 5.1 10x3/uL (4.8-10.8)
[2017-11-11 20:22] LABS: ALBUMIN 3.5 g/dL (3.4-5.0); ALKALINE PHOSPHATASE 171 U/L (46-116); ALT (SGPT) 23 U/L (10-68); BILIRUBIN - TOTAL 0.25 mg/dL (0.2-1.3); C-REACTIVE PROTEIN 1.1 mg/dL (0.0-0.9); CALC OSMOLALITY 286 mosm/kg (275-300); CALCIUM 8.8 mg/dL (8.5-10.1); CARBON DIOXIDE 29.4 mmol/L (21.0-32.0); CHLORIDE - SERUM 105 mmol/L (98-107); CHOL - HDL RATIO 6.2 ratio (2.3-4.1); CHOLESTEROL, TOTAL 231 mg/dL (0-200); CREATININE - SERUM 0.9 mg/dL (0.6-1.3); GLUCOSE 118 mg/dL (74-106); HDL CHOLESTEROL 37 mg/dL (32-96); POTASSIUM - SERUM 3.8 mmol/L (3.5-5.1); PROTEIN - SERUM 7.3 g/dL (6.4-8.2); SODIUM 142 mmol/L (136-145); TRIGLYCERIDE 425 mg/dL (30-200); UREA NITROGEN 21 mg/dL (7-18); URIC ACID 4.9 mg/dL (2.6-7.2); eGFR NON AFRICAN AMERICAN 67 mL/min (90-120)
[2017-11-11 21:15] LABS: ERYTHROCYTE SEDIMENTATION RATE 41 mm/hr (0-30)
== END | disposition home or self-care (01) ==
LOC: D.LABREF 18:59
PROVIDERS: Student in an Organized Health Care Education/Training Program
DX: T84.093A Other mechanical complication of internal left knee prosthesis, initial encounter (principal)

== ENCOUNTER → 2017-11-15 11:00 | Outpatient (CLI) | payer MEDICARE ==
[2017-10-26 08:13] VITALS: BMI 37.1
[2017-11-15 12:48] LABS: APPEARANCE SL CLDY (CLEAR); BACTERIA MANY /hpf (NONE SEEN); BILIRUBIN NEGATIVE (NEGATIVE); CALCIUM OXALATE CRYSTALS 0-5 /hpf (NONE SEEN); COLOR YELLOW (YELLOW); EPITHELIAL CELLS 0-5 /hpf (0-5); GLUCOSE NEGATIVE (NEGATIVE); KETONE NEGATIVE (NEGATIVE); NITRITE POSITIVE (NEGATIVE); PROTEIN NEGATIVE (NEGATIVE); UROBILINOGEN NORMAL (NORMAL); WHITE CELLS - URINE 0-5 /hpf (0-5)
== END | disposition home or self-care (01) ==
LOC: D.LABREF 11:00
PROVIDERS: Family Medicine
DX: Z51.81 Encounter for therapeutic drug level monitoring (principal); Z79.2 Long term (current) use of antibiotics; T85.79XA Infection and inflammatory reaction due to other internal prosthetic devices, implants and grafts, initial encounter; R30.0 Dysuria

== ENCOUNTER → 2017-11-18 13:01 | Outpatient (CLI) | payer MEDICARE ==
[2017-10-26 08:13] VITALS: BMI 37.1
[2017-11-18 14:16] LABS: BASOPHILS 0.2 % (0-2); EOSINOPHILS 7.1 % (0-7); HEMATOCRIT 36.1 % (36.0-48.0); HEMOGLOBIN 10.9 g/dL (12-16); LYMPHOCYTES 15.7 % (15-50); MCH 25.1 pg (26.0-34.0); MCHC 30.2 g/dL (31.0-37.0); MCV 83.2 fL (80.0-100.0); MONOCYTES 6.1 % (2-11); NEUTROPHILS 70.9 % (40-80); PLATELET COUNT 237 10x3/uL (130-400); RBC 4.34 10x6/uL (4.00-5.40); RDW 16.7 % (11.5-14.5); WBC 5.8 10x3/uL (4.8-10.8)
[2017-11-18 14:34] LABS: C-REACTIVE PROTEIN 5.2 mg/dL (0.0-0.9); CREATININE - SERUM 0.6 mg/dL (0.6-1.3)
[2017-11-18 15:43] LABS: ERYTHROCYTE SEDIMENTATION RATE 52 mm/hr (0-30)
== END | disposition home or self-care (01) ==
LOC: D.LABREF 13:01
PROVIDERS: Student in an Organized Health Care Education/Training Program
DX: T84.093A Other mechanical complication of internal left knee prosthesis, initial encounter (principal)

== ENCOUNTER 2017-11-25 11:35 | Inpatient (IN) | payer MEDICARE ==
[2017-11-22 12:26] LABS: APTT 28.5 SECONDS (22.8-39.4); PROTIME 12.8 SECONDS (11.6-15.0)
[2017-11-22 12:28] LABS: HEMATOCRIT 36.5 % (36.0-48.0); HEMOGLOBIN 11.1 g/dL (12-16); MCH 25.2 pg (26.0-34.0); MCHC 30.4 g/dL (31.0-37.0); MCV 82.8 fL (80.0-100.0); MEAN PLATELET VOLUME 9.5 fL (7.4-10.4); RBC 4.41 10x6/uL (4.00-5.40); RDW 16.5 % (11.5-14.5); WBC 5.2 10x3/uL (4.8-10.8)
[2017-11-22 12:31] LABS: CALC OSMOLALITY 285 mosm/kg (275-300); CALCIUM 9.4 mg/dL (8.5-10.1); CARBON DIOXIDE 28.7 mmol/L (21.0-32.0); CHLORIDE - SERUM 103 mmol/L (98-107); CREATININE - SERUM 0.7 mg/dL (0.6-1.3); GLUCOSE 105 mg/dL (74-106); SODIUM 142 mmol/L (136-145); UREA NITROGEN 20 mg/dL (7-18); eGFR NON AFRICAN AMERICAN 90 mL/min (90-120)
[~2017-11-25] VITALS: Ht 154.9 cm; Wt 86.2 kg
[2017-11-25] VITALS (9 sets, daily range): BP systolic 87–157; BP diastolic 51–91; BMI 37.8
--- NOTE | ~2017-11-25 | OP ---
PATIENT NAME: MELISSA HECTOR MEDICAL RECORD: [id number] :57 LOCATION:[facility] ADMISSION DATE:11/25/17 SURGEON: HERMAN MCDANIELS MD DATE OF OPERATION: 11/25/2017 PREOPERATIVE DIAGNOSIS: Chronically infected left knee. POSTOPERATIVE DIAGNOSIS: Chronically infected left knee. PROCEDURE: Left above knee amputation. SURGEON: Herman Mcdaniels MD ANESTHESIA: General. INTRAOPERATIVE COMPLICATIONS: None. SUMMARY OF PATHOLOGIC FINDINGS: Consistent with the preoperative inflammatory markers, the patient did appear to have a continued left total knee infection. INDICATIONS: This is a 62-year-old female who unfortunately had a Kathy infection, which has been very difficult to treat. After 3 irrigation and debridements, her inflammatory markers began to rise again. The patient asked desperately to have her knee amputated and after discussion of risks/benefits associated with this, I agreed to do it because I do not feel like given her health status we are going to be able to eradicate her Kathy infection. OPERATIVE SUMMARY IN DETAIL: After obtaining the appropriate preoperative orthopedic surgery consent as well as anesthetic consultation, evaluation and clearance, the patient was brought to the operating room and placed on the operating table in supine position. After general laryngeal mask airway was administered, tourniquet was placed on the proximal aspect of the left lower extremity. Left lower extremity was then prepped and draped in routine sterile fashion. The leg was elevated and exsanguinated, tourniquet was inflated to 350 mmHg. A fishmouth incision was drawn on the patient's distal femur. Incision was made circumferentially in line with the fishmouth incision. The Bovie was then used to take this down to the level of the femur. The femur was then cut using the power saw and the posterior flap was removed. At this point, the great vessels were identified and ligated along with the posterior aspect of the saphenous nerve it was pulled and cut for retraction and at this point during the case, the tourniquet was deflated, any accessory small ancillary bleeders were also ligated and tied. The wound was then copiously irrigated and it was closed after doing a myodesis with the adductor mechanism using Ethibond. Next, the posterior fascia was reapproximated to the anterior fascia using #1 Vicryl followed by 2-0 Vicryl and skin miranda. Sterile dressings were applied. The patient was awakened and taken to the recovery room in stable condition. All final needle and sponge counts were correct. Blood loss was approximately 300 cc. TRANSINT:[id number] Voice Confirmation ID: [id number] DOCUMENT ID: [id number] OPERATIVE REPORT [id number] MELISSA HECTOR MD, HERMAN BROOKS at 1459 CC: [id number] DICTATION DATE: 11/26/17 1000 STORAGE GARAGE ATTENDANT: 11/26/17 1107 ADM IN [place] [id number] [place] [address]
[~2017-11-25 11:35] MED LIST changes: -DILAUDID4 MG PO; -MYCOSTATIN CREA15 GM TOPICAL
[2017-11-25] MEDS ORDERED: ZANAFLEX4 MG PO (12:02)
[2017-11-25 13:49] LABS: APPEARANCE HAZY (CLEAR); BILIRUBIN NEGATIVE (NEGATIVE); COLOR YELLOW (YELLOW); GLUCOSE NEGATIVE (NEGATIVE); KETONE NEGATIVE (NEGATIVE); NITRITE NEGATIVE (NEGATIVE); PROTEIN NEGATIVE (NEGATIVE); SPECIFIC GRAVITY 1.015 (1.005-1.020); UROBILINOGEN NORMAL (NORMAL)
[2017-11-26] VITALS (8 sets, daily range): BP systolic 91–143; BP diastolic 53–91; Ht 154.9 cm; Wt 86.2 kg
[2017-11-26 07:21] LABS: HEMATOCRIT 32.5 % (36.0-48.0); HEMOGLOBIN 9.8 g/dL (12-16); MCH 25.2 pg (26.0-34.0); MCHC 30.2 g/dL (31.0-37.0); MCV 83.5 fL (80.0-100.0); MEAN PLATELET VOLUME 9.6 fL (7.4-10.4); RBC 3.89 10x6/uL (4.00-5.40); RDW 16.3 % (11.5-14.5); WBC 7.1 10x3/uL (4.8-10.8)
[2017-11-27 04:16] VITALS: BP 140/71
[2017-11-27 06:13] LABS: HEMATOCRIT 31.5 % (36.0-48.0); HEMOGLOBIN 9.2 g/dL (12-16); MCH 24.7 pg (26.0-34.0); MCHC 29.2 g/dL (31.0-37.0); MCV 84.5 fL (80.0-100.0); MEAN PLATELET VOLUME 9.6 fL (7.4-10.4); RBC 3.73 10x6/uL (4.00-5.40); RDW 16.7 % (11.5-14.5)
[2017-11-27 06:30] LABS: WBC 4.3 10x3/uL (4.8-10.8)
[2017-11-27 09:42] VITALS: BP 129/77
[2017-11-27 15:09] VITALS: BP 127/57
[2017-11-27 17:29] VITALS: BP 101/57
[2017-11-27 20:35] VITALS: BP 118/70
[2017-11-28 00:31] VITALS: BP 115/67
[2017-11-28 04:42] VITALS: BP 124/74
[2017-11-28] MEDS ORDERED: NICODERM C1 PATCH .1 TRANSDERM (08:02)
[2017-11-28] MEDS ORDERED: MYCOSTATIN CREA15 GM TOPICAL (08:03)
[2017-11-28] MEDS ORDERED: OMNICEF300 MG PO (08:04)
[2017-11-28] MEDS ORDERED: DILAUDID4 MG PO (08:05)
[2017-11-28 08:28] VITALS: BP 133/72
[2017-11-28 13:35] VITALS: BP 110/54
[2017-11-28 16:42] VITALS: BP 112/64
== END 2017-11-28 15:30 | DRG 475 ==
LOC: D.MS 11:35 → D.SDCHOLD 11:35 → D.MS 19:32
PROVIDERS: Anesthesiology; Orthopaedic Surgery
PROC: 0Y6D0Z3 Detachment at Left Upper Leg, Low, Open Approach (ICD-10-PCS; principal; 2017-11-25 13:45)
PROC: 3C1ZX8Z Irrigation of Indwelling Device using Irrigating Substance, External Approach (ICD-10-PCS; 2017-11-26)
DX: T84.54XA Infection and inflammatory reaction due to internal left knee prosthesis, initial encounter (principal); B37.89 Other sites of candidiasis; D62 Acute posthemorrhagic anemia; E78.5 Hyperlipidemia, unspecified; I10 Essential (primary) hypertension; I25.10 Atherosclerotic heart disease of native coronary artery without angina pectoris; E11.40 Type 2 diabetes mellitus with diabetic neuropathy, unspecified

== ENCOUNTER 2018-04-21 08:20 | Emergency (ER) | payer MEDICARE ==
[~2018-04-21] VITALS: Ht 154.9 cm; Wt 95.5 kg
[~2018-04-21 08:20] MED LIST changes: +DILAUDID4 MG PO; +MYCOSTATIN CREA15 GM TOPICAL
[2018-04-21 08:23] VITALS: Ht 154.9 cm; Wt 95.5 kg
[2018-04-21 09:53] VITALS: BP 159/80
== END 2018-04-21 09:49 | disposition home or self-care (01) ==
LOC: D.ER 08:20
DX: S70.02XA Contusion of left hip, initial encounter (principal); W18.30XA Fall on same level, unspecified, initial encounter; Y93.89 Activity, other specified; Y92.019 Unspecified place in single-family (private) house as the place of occurrence of the external cause

== ENCOUNTER → 2018-06-10 12:52 | Outpatient (CLI) | payer MEDICARE ==
[2018-04-21 08:23] VITALS: BMI 39.7
== END | disposition home or self-care (01) ==
LOC: D.MRI 12:52
PROVIDERS: ATTEND Clinical Nurse Specialist Family Health
DX: M25.552 Pain in left hip (principal)

== ENCOUNTER 2018-07-07 09:29 | Day surgery (SDC) | payer MEDICARE ==
[~2018-07-07] VITALS: Ht 154.9 cm; Wt 90.7 kg
--- NOTE | ~2018-07-07 | OP ---
PATIENT NAME: MELISSA HECTOR MEDICAL RECORD: [id number] :57 LOCATION:[facility] ADMISSION DATE: SURGEON: HERMAN MCDANIELS MD DATE OF OPERATION: 07/07/2018 PREOPERATIVE DIAGNOSIS: Arthritis of the left hip. POSTOPERATIVE DIAGNOSIS: Arthritis of the left hip. PROCEDURE: Injection of left hip under fluoroscopy. SURGEON: Herman Mcdaniels MD ANESTHESIA: General. INTRAOPERATIVE COMPLICATIONS: None. SUMMARY OF PATHOLOGIC FINDINGS: Essentially, the patient had fluoroscopic findings consistent with radiographic findings. OPERATIVE SUMMARY IN DETAIL: After obtaining the appropriate preoperative orthopedic surgery consent as well as anesthetic consultation, evaluation, and clearance, the patient was brought to the operating room and placed on the operating room table in supine position. After adequate TIVA anesthesia was administered, the patient's left hip was prepped and draped in a routine sterile fashion. An 18-gauge needle was then directed into the hip capsule under fluoroscopic guidance. Care was taken to avoid the neurovascular structures. Small amount of Isovue was used to assure that the needle was in the appropriate place. A 5 cc of 0.25% Marcaine with epinephrine and 40 mg of Depo-Medrol was injected directly into the hip. Having completed this, the patient was awakened and taken back to outpatient in stable condition. TRANSINT:[id number] Voice Confirmation ID: [id number] DOCUMENT ID: [id number] HERMAN MCDANIELS MD CC: [id number] DICTATION DATE: 07/10/18 0941 CLINICAL RADIOLOGIST: 07/10/18 1029 [facility] 07/07/18 [place] [address]
[~2018-07-07 09:29] MED LIST changes: +HYDROCODON-ACE1 EA10 PO
[2018-07-07 09:58] VITALS: BP 143/93; Ht 154.9 cm; Wt 90.7 kg
--- NOTE | 2018-07-07 13:13 | NUR ---
IV REMOVED CATHETER INTACT. DRESSING APPLIED
== END 2018-07-07 13:31 | disposition home or self-care (01) ==
LOC: D.OPS 09:29 → D.PAN 11:45 → D.OPS 13:05
PROVIDERS: ATTEND Orthopaedic Surgery
DX: M16.12 Unilateral primary osteoarthritis, left hip (principal)

== ENCOUNTER → 2018-08-26 08:35 | Outpatient (CLI) | payer MEDICARE ==
[2018-07-07 09:58] VITALS: BMI 37.8
--- NOTE | 2018-09-01 10:06 | EC ---
PATIENT:MELISSA HECTOR DATE OF SERVICE: 08/26/18 SEX: F MEDICAL RECORD: [id number] DATE OF : 57 LOCATION:D[facility] AGE OF PATIENT: 63 ADMISSION DATE: 08/26/18 REFERRING PHYSICIAN: INTERPRETING PHYSICIAN: ABRAM NEAL MD ECHOCARDIOGRAM REPORT ECHO CHARGES 4 ECHO COMPLETE Date: 08/26/18 CLINICAL DIAGNOSIS: H/O CAD/HTN ECHOCARDIOGRAPHIC MEASUREMENTS (adult normal given) AC root (d.<3.7cm) 3.1 cm LV Septum d (<1.2 cm> 1.2 cm Valve Excursion 1.9 cm LV Septum (systole) 2.1 cm Left Atria (s.<4.0cm> 5.2 cm LVPW d(<1.2cm) 1.2 cm RV (d.<2.3cm) 2.7 cm LVPW (sytole) 2.1 cm LV diastole(<5.6CM) 6.2 cm MV E-F(>70mm/sec) cm LV systole 4.0 cm LVOT Diameter 2.0 cm MV exc.(>10mm) cm Est.ejection fraction (50-75%) % DOPPLER: LVIT cm/sec A 96.0 cm/sec E 113 cm/sec LA cm/sec RVSP 46.0 mmHg LVOT 147 cm/sec AOP1/2T m/s Asc. Ao 233 cm/sec RVOT 70.0 cm/sec RA cm/sec PA 143 cm/sec AV Gradient Peak 22.0 mmHg AV Mean 11.0 mmHg AV Area 1.7 cm MV Gradient Peak 8.4 mmHg MV Mean 2.4 mmHg MV Area cm COMMENTS: OP - HC Cane Flume Feeding Machine Operator: 1 FELICITA PHAMOE Book Trimmer: 3 Dr. Pearson TAPE# PACS Pericardial Effusion N DATE OF SERVICE: Adequate 2D echo, color flow, spectral Doppler, and M-mode. Mild LVH. LV internal dimension is normal. Wall motion is normal. EF is greater than or equal to 55%. Aortic valve is sclerosed without significant stenosis by Doppler interrogation. Left atrium is dilated at 4.2 cm. Mitral valve shows no prolapse. Mild MR. Right-sided chambers are grossly normal. Trace TR. ECHOCARDIOGRAM REPORT [id number] MELISSA HECTOR TRANSINT:[id number] Voice Confirmation ID: [id number] DOCUMENT ID: [id number] ABRAM NEAL MD at 1006 CC: [id number] DICTATION DATE: 08/27/18 151 MEDICAL CASE MANAGER: 08/28/18 0116 DEP CLI 08/26/18 [place] [id number] [place] [id number]
== END | disposition home or self-care (01) ==
LOC: D.HCCARDIO 08:35
PROVIDERS: ATTEND Internal Medicine Interventional Cardiology
DX: I10 Essential (primary) hypertension (principal)

== ENCOUNTER → 2018-09-17 11:05 | Outpatient (CLI) | payer MEDICARE ==
[~2018-09-17] VITALS: Ht 154.9 cm; Wt 90.9 kg
--- NOTE | ~2018-09-17 | HEMODYNAMI ---
PATIENT:MELISSA HECTOR MEDICAL RECORD: [id number] : 57 LOCATION:[facility] ADMISSION DATE: 09/17/18 Generatedon:09/17/201814:04 Patient name: MELISSA HECTOR Patient #: [id number] SSN: : Date of study: 09/17/2018 Page: Of Hemodynamic Procedure Report Patient Data Patient Demographics Procedure consent was obtained First Name: MELISSA Gender: Female Last Name: TAWNY : 1955 [facility] Initial: HALLIE Age: 63 year(s) Patient #: [id number] Race: Unknown Additional ID: [id number] Contact details Address: [address] [place] [address] State: [place] City: [facility] Zip code: [address] Past Medical History Allergies Allergen Reaction Date Comments Reported Codeine 01/20/2015 Erythromycin 01/20/2015 Percocet 01/20/2015 Oxycodone Other allergy 01/20/2015 Flexeril Other allergy 09/17/2018 PERCOCET, FLEXERIL, ERYTHROMYCIN BASE, CODEINE Admission Admission Data Admission Date: 09/17/2018 Admission Time: 11:05 Weight (lbs.): 200.62 Weight (kg.): 91 Lab Results Lab Result Date: 09/17/2018 Lab Result Time: 0:00 Biochemistry Name Units Result Min Max BUN mg/dl 13 --(--*-)-- 7 18 Creatinine mg/dl 0.6 --(*---)-- 0.6 1.3 CBC Name Units Result Min Max Hematocrit % 37.4 *-(----)-- 42 54 Hemoglobin g/dl 12.1 *-(----)-- 13.5 17.5 Procedure Procedure Types Cath Procedure Diagnostic Procedure LHC LHC w/Coronaries Sedation Charges Moderate Sedation up to 15 minutes PCI Procedure Coronary Stent Coronary Stent Initial Procedure Description Procedure Date Procedure Date: 09/17/2018 Procedure Start Time: 13:46 Procedure End Time: 14:03 Procedure Staff Name Function Brendon Haley MD Performing Physician Tara Winter RN Video Game Repair Technician Emelina Salvador RT Monitor Matt Londono RN Nurse Johann Lanza RT Scrub Procedure Data Cath Procedure Fluoroscopy Diagnostic fluoroscopy Total fluoroscopy Time: 3 time: 3 min min Diagnostic fluoroscopy Total fluoroscopy dose: 958 dose: 958 mGy mGy Contrast Material Contrast Material Type Amount (ml) Isovue 300 89 Entry Location Entry Primary Successful Side Size Upsize Upsize Entry Closure [place] ccessful Closure Location (Fr) 1 (Fr) 2 (Fr) Remarks Device Remarks Femoral Right 6 Fr Mechanical artery Short Compression Estimated blood loss: 10 ml Diagnostic catheters Device Type Used For End Catheter Placement DIAGNOSTIC [place] 110cm 5 Procedure Fr catheter ([id number]) Procedure Complications No complications Procedure Medications Medication Administration Route Dosage 0.9% NaCl I.V. 100 ml/hr Oxygen etCO2 Nasal cannula 2 l/min Heparin Flush Bag added to field 2 bags (1000units/500ml NS) Lidocaine 2% added to field 20 Radial Cocktail added to field 1 syringe (Verapamil 2mg/Nitro 400mcg/Heparin 1500units) Versed I.V. 1 mg Fentanyl I.V. 50 mcg Radial Cocktail I.A. 1 syringe (Verapamil 2mg/Nitro 400mcg/Heparin 1500units) Heparin Bolus I.V. 5000 units Integrilin (Bolus I.V. 8.5 ml 2mg/ml) Integrilin (Bolus wasted 1.5 ml 2mg/ml) Plavix P.O. 600 mg Hemodynamics Rest HGB: 12.1 (g/dl) Heart Rate: 64 (bpm) Pressure Samples Time Site Value (mmHg) Purpose Heart Use Rate(bpm) 13:49 LV 129/7,7 Snapshot 78 13:49 AO 114/88(100) Pullback 81 13:49 LV 124/-12,0 Pullback 81 Gradients Valve Time Site 1 Site 2 Mean SEP/DFP Peak To Heart Use (mmHg) (sec/min) Peak Rate (mmHg) (bpm) Aortic 13:49 LV AO 10 81 124/-12,0 114/88(100) Calculations Valve P-P Mean Valve Index Valve Source Name Gradient Area Flow (cm2) Aortic 10 10 Snapshots Pre Cath Intra NCS Post Cath Vital Signs Time Heart Resp SPO2 etCO2 NIBP (mmHg) Rhythm Pain Sedation Rate (ipm) (%) (mmHg) Status Level (bpm) 13:35:37 65 14 89 0 161/85(117) NSR 0 (11) 10(A) , No pain 13:39:57 66 13 90 43.3 148/80(124) NSR 0 (11) 10(A) , No pain 13:44:23 68 12 87 44.8 146/81(115) NSR 0 (11) 10(A) , No pain 13:48:47 69 12 90 41.8 151/67(95) NSR 0 (11) 10(A) , No pain 13:53:13 77 12 88 44 135/73(109) NSR 0 (11) 10(A) , No pain 13:57:32 73 11 90 42.6 137/77(104) NSR 0 (11) 10(A) , No pain 14:01:52 72 13 92 44 148/78(106) NSR 0 (11) 10(A) , No pain Medications Time Medication Route Dose Verified Delivered Reason Not es Effectiveness by by 13:37:59 0.9% NaCl I.V. 100 Matt Matt Per physician ml/hr Spring Londono RN RN 13:38:09 Oxygen etCO2 2 l/min Matt Matt for low 02 sats Nasal Lorigan Spring cannula RN RN 13:38:19 Heparin Flush added 2 bags Matt Matt used for Bag to Lorigan Lorigan procedure (1000units/500ml [facility] RN RN NS) 13:38:30 Lidocaine 2% added 20ml Matt Matt for local to vial Lorigan Lorigan anesthetic RN RN 13:38:45 Radial Cocktail added 1 Matt Matt used for (Verapamil to syringe Lorigan Lorigan procedure 2mg/Nitro field RN RN 400mcg/Heparin 1500units) 13:43:47 Versed I.V. 1 mg Matt Matt for sedation Spring Londono RN RN 13:43:56 Fentanyl I.V. 50 mcg Matt Matt for sedation Spring Londono RN RN 13:48:20 Radial Cocktail I.A. 1 Matt Brendon for (Verapamil syringe Lorigan Tera vasodilation 2mg/Nitro RN 400mcg/Heparin 1500units) 13:54:18 Heparin Bolus I.V. 5000 Matt Matt for units Lorigan Lorigan anticoagulation RN RN 13:54:36 Integrilin I.V. 8.5 ml Matt Matt for (Bolus 2mg/ml) Spring Londono antiplatelet RN RN therapy 13:55:34 Integrilin wasted 1.5 ml Matt Matt to sharp's (Bolus 2mg/ml) Spring Londono RN RN 14:02:51 Plavix P.O. 600 mg Matt Matt for Spring Londono antiplatelet RN RN therapy Procedure Log Time Note 13:10:35 Tara Winter RN sent for patient. Start room use. 13:20:41 Time tracking: Regular hours (M-F 7:00 - 5:00) 13:20:46 Plan of Care:Hemodynamics will remain stable., Cardiac rhythm will remain stable., Comfort level will be maintained., Respiratory function will remain adequate., Patient/ family verbilizes understanding of procedure., Procedure tolerated without complication., Recovers from procedure without complications.. 13:23:21 Signed procedure consent form obtained from patient. 13:25:07 Patient Weight : 200.62 lbs 13:25:19 H&P Date Dictated: 09/05/2018 Within 30 days and on chart., H&P Addendum completed by physician on day of procedure. (MUST COMPLETE FOR ALL OUTPATIENTS). 13:25:50 Patient allergic to Other allergyPERCOCET, FLEXERIL, ERYTHROMYCIN BASE, CODEINE 13:26:14 Patient received from Pre/Post Procedure Room to CCL 1 Alert and oriented. Tansferred to table in Supine position. 13:26:16 Warm blankets applied, and sumanth hugger turned on for patient comfort. 13:26:17 Correct patient and procedure confirmed by team. 13:26:17 ECG and BP/O2 sat monitors applied to patient. 13:31:36 Pre-procedure instructions explained to patient. 13:31:37 Pre-op teaching completed and patient verbalized understanding. 13:31:38 Family in patients room. 13:31:40 Patient NPO since Midnight. 13:31:41 Is patient on blood thinner?No 13:31:42 Patient diabetic? No. 13:31:44 Is the patient allergic to Iodine/contrast media? No. 13:31:55 Full Disclosure recording started 13:32:02 Patient not . Patient is over age 55. 13:32:06 Previous problem with sedation/anesthesia? No ? 13:32:07 Snore? No 13:32:17 WEARS HOME 02 13:32:20 Sleep apnea? No 13:32:21 Deviated septum? No 13:32:22 Opens mouth fully? Yes 13:32:23 Sticks out tongue? Yes 13:32:24 Airway obstruction? No ? 13:32:27 Dentures? Yes OUT 13:32:34 Modified Genaro's test Ulnar < 7 seconds 13:32:37 Patient pain scale 0/10 ?. 13:32:43 IV patent on arrival in left hand with 0.9% NaCl at [facility]. 13:32:53 Lab results completed and on chart. 13:33:16 Lab Result : BUN 13 mg/dl 13:33:16 Lab Result : Hemoglobin 12.1 g/dl 13:33:16 Lab Result : Creatinine 0.6 mg/dl 13:33:16 Lab Result : Hematocrit 37.4 % 13:33:20 Right Radial & Right Groin area was prepped with chlora-prep and draped in sterile fashion 13:33:22 Alarms reviewed by R. N. 13:33:23 Sharps counted by scrub and verified by R.N. 13:33:26 Use device set Radial Dx or PCI 13:33:27 ACIST Syringe (33359) opened to sterile field. 13:33:28 Bag Decanter (2002S) opened to sterile field. 13:33:29 ACIST Hand Control (42540) opened to sterile field. 13:33:29 ACIST Manifold (05238) opened to sterile field. 13:33:30 Tegaderm 4 x 4 (1626W) opened to sterile field. 13:33:32 Medline Cath Pack ([id number]) opened to sterile field. 13:33:32 DIAGNOSTIC WIRE .035 260cm J wire (099425) opened to sterile field. 13:33:33 MBrace Wrist Support ([id number]) opened to sterile field. 13:33:34 SHEATH 6FR Slender (38-4327) opened to sterile field. 13:34:24 Vital chart was started 13:34:27 Baseline sample Acquired. 13:34:32 Rhythm: sinus rhythm 13:37:59 0.9% NaCl 100 ml/hr I.V. was administered by Matt Lorigan RN; Per physician; 13:38:09 Oxygen 2 l/min etCO2 Nasal cannula was administered by Matt Londono RN; for low 02 sats; 13:38:19 Heparin Flush Bag (1000units/500ml NS) 2 bags added to field was administered by Matt Londono RN; used for procedure; 13:38:30 Lidocaine 2% 20ml vial added to field was administered by Matt Londono RN; for local anesthetic; 13:38:45 Radial Cocktail (Verapamil 2mg/Nitro 400mcg/Heparin 1500units) 1 syringe added to field was administered by Matt Londoon RN; used for procedure; 13:42:15 --------ALL STOP TIME OUT------ 13:42:17 Final Timeout: patient, procedure, and site verified with staff and physician. All members of the team are in agreement. 13:42:18 Right Radial & Right Groin site verified by team. 13:42:22 Maximum allowable Isovue 300 dose 300ml. Physician notified. (300ml for normal creatinines. For patients with creatinine of 1.7 or higher multiply weight(kg) x 5 divided by creatinine.) 13:42:26 Fire Safety Assessment: A--An alcohol-based skin anteseptic being used preoperatively., C--Open oxygen or nitrous oxide is being used., D--An ESU, laser, or fiber-optic light is being used. 13:42:28 Physical assessment completed. ASA score P 2 - A patient with mild systemic disease as per Brendon Haley MD. 13:42:31 Sedation plan: IV Moderate Sedation Medication:Versed, Fentanyl 13:43:47 Versed 1 mg I.V. was administered by Matt Londono RN; for sedation; 13:43:56 Fentanyl 50 mcg I.V. was administered by Matt Londono RN; for sedation; 13:45:57 Zero performed for pressure channel P1 13:46:02 Procedure started. 13:46:48 Local anesthetic to right radial artery with Lidocaine 2% by Brendon Haley MD.INITIAL ACCESS ONLY 13:47:39 A 6 Fr Short sheath was inserted into the Right Femoral artery 13:48:20 Radial Cocktail (Verapamil 2mg/Nitro 400mcg/Heparin 1500units) 1 syringe I.A. was administered by Brendon Haley MD; for vasodilation; 13:48:30 LV gram done using LYN 13:48:35 Injector settings: Ml/sec: 5, Volume: 15, 13:48:51 A DIAGNOSTIC [place] 110cm 5 Fr catheter (978309) was advanced over the wire and used for Procedure. 13:49:11 LV hemodynamics recorded. 13:49:16 EF : 55 % 13:50:31 LCA angiography performed. 13:51:22 RCA angiography performed. 13:51:23 Catheter exchanged over wire. 13:52:44 WHISPER 300cm guide wire ([id number]) opened to sterile field. 13:52:44 INFLATOR Merit BasixCompak (XK5829) opened to sterile field. 13:52:44 GUIDE 6FR XBLAD 3.5 catheter ([id number]) opened to sterile field. 13:52:59 6 Fr XBLAD 3.5 guide catheter was inserted over the wire 13:54:18 Heparin Bolus 5000 units I.V. was administered by Matt Londono RN; for anticoagulation; 13:54:36 Integrilin (Bolus 2mg/ml) 8.5 ml I.V. was administered by Matt Londono RN; for antiplatelet therapy; 13:55:34 Integrilin (Bolus 2mg/ml) 1.5 ml wasted was administered by Matt Londono RN; to sharp's; 13:56:59 WHISPER 300 wire advanced. 13:57:57 Wire advanced across lesion. 13:58:33 Place stent Inflation Number: 1 A MICHAEL OTW 3.0 x 18 stent ([id number]) was prepped and advanced across the Mid LAD 80. The stent was deployed at 14 RANDY for 0:15 (min:sec) 0. 13:58:41 Stent catheter was removed intact over wire. 13:58:49 Wire removed. 13:58:50 Guide catheter removed. 13:59:14 Procedure ended.(Physican Out) 13:59:24 TR BAND Standard ([id number]) opened to sterile field. 13:59:32 Sheath removed intact; hemostasis achieved with Mechanical Compression to the Right Femoral artery. 13:59:37 Fluoroscopy time 03.00 minutes. 13:59:41 Flurop Dose total: 958 13:59:42 Fluoroscopy dose: 958 mGy 13:59:45 Contrast amount:Isovue 300 89ml. 13:59:46 Sharps counted by scrub and verified by R.N. 14:01:03 TR band inflated with 10cc of air. 14:01:06 Post-procedure physical assessment completed. ASA score P 2 - A patient with mild systemic disease as per Brendon Haley MD. 14:01:09 Post procedure rhythm: sinus rhythm 14:01:15 Estimated blood loss: 10 ml 14:01:16 Post procedure instruction explained to patient.Patient verbalizes understanding. 14:01:19 Patient needs reinforcement of post procedure teaching. 14:01:43 Procedure type changed to Cath procedure, Diagnostic procedure, LHC, LHC w/Coronaries, Sedation Charges, Moderate Sedation up to 15 minutes, PCI procedure, Coronary Stent, Coronary Stent Initial 14:02:51 Plavix 600 mg P.O. was administered by aMtt Londono RN; for antiplatelet therapy; 14:03:26 Procedure and supply charges have been captured, reviewed, submitted and are correct. 14:03:29 Procedure Complication : No complications 14:03:30 Vital chart was stopped 14:03:31 See physician's report for complete and final results. 14:03:32 Report given to Pre/Post Procedure Room. 14:03:34 Patient transfered to Pre/Post Procedure Room with Bed. 14:03:36 Procedure ended. 14:03:36 Full Disclosure recording stopped 14:03:39 End room use (Document Last) Intervention Summary Intervention Notes Time ActionType Lesion and Equipment Action# Pressure Duration Attributes Used 13:58:33 Place stent Mid LAD MICHAEL OTW 3.0 1 14 00:15 x 18 stent ([id number]) Device Usage Item Name Manufacture Quantity Catalog Hospital Part Current Mini mal Lot# / Number Charge Number Stock Stock Serial# Code ACIST Syringe Acist 1 90416 341768 741907 161498 20 (73091) Medical Systems Inc Bag Decanter Microtek 1 2001S 135256 51104 581003 5 (2001S) Medical Inc. ACIST Hand Acist 1 14352 925878 950716 095565 5 Control Medical (36962) Systems Inc ACIST Acist 1 56425 164358 488336 815633 5 Manifold Medical (31885) Systems Inc Tegaderm 4 x 3M 1 1626W 773297 523867 324242 5 4 (1626W) Medline Cath Medline 1 [id number] 086022 44631 884320 5 Pack ([id number]) DIAGNOSTIC St Dre 1 994919 769117 323613 872330 30 WIRE .035 260cm J wire (232769) MBrace Wrist Advanced 1 140-0250-00 800010 06241 220120 5 Support Vascular (169398961) Dynamics SHEATH 6FR Terumo 1 [id number] 895838 654506 562823 5 Slender (80-1060) WHISPER 300cm [place] 1 [id number] 637456 683158 412875 5 guide wire Vascular (0222831NV) INFLATOR Merit 1 PB6771 374392 915484 516290 15 [facility] Medical BasixCompak (NE8153) GUIDE 6FR Cardinal 1 [id number] 795210 107822 901385 10 XBLAD 3.5 Health catheter (52928925) MICHAEL OTW 3.0 Medtronic 1 [id number] 074193 3578633 808170 5 [id number] x 18 stent ([id number]) TR BAND Terumo 1 [id number] 661535 143145 415848 40 Standard ([id number]) DIAGNOSTIC Terumo 1 40-7461 702813 259595 948568 5 [place] 110cm 5 Fr catheter (924154) Signature Audit [place] Stage Time Signature Unsigned Intra-Procedure 09/17/2018 Emelina Franco 2:04:11 PM RT(R) Signatures Monitor : Emelina Franco Signature : RT Date : Time : [facility] [address] [place] [address]
[~2018-09-17 11:05] MED LIST changes: +MOBIC7.5 MG PO
[2018-09-17 11:41] VITALS: BP 154/82; Ht 154.9 cm; Wt 90.9 kg
[2018-09-17 11:55] LABS: BASOPHILS 0.2 % (0-2); EOSINOPHILS 2.2 % (0-7); HEMATOCRIT 37.4 % (36.0-48.0); HEMOGLOBIN 12.1 g/dL (12-16); LYMPHOCYTES 25.3 % (15-50); MCH 27.6 pg (26.0-34.0); MCHC 32.4 g/dL (31.0-37.0); MCV 85.2 fL (80.0-100.0); MEAN PLATELET VOLUME 9.3 fL (7.4-10.4); MONOCYTES 8.3 % (2-11); PLATELET COUNT 213 10x3/uL (130-400); RBC 4.39 10x6/uL (4.00-5.40); RDW 13.8 % (11.5-14.5); WBC 5.4 10x3/uL (4.8-10.8)
[2018-09-17 12:06] LABS: CALC OSMOLALITY 290 mosm/kg (275-300); CALCIUM 9.1 mg/dL (8.5-10.1); CARBON DIOXIDE 30.7 mmol/L (21.0-32.0); CHLORIDE - SERUM 108 mmol/L (98-107); CREATININE - SERUM 0.6 mg/dL (0.6-1.3); GLUCOSE 100 mg/dL (74-106); POTASSIUM - SERUM 3.3 mmol/L (3.5-5.1); SODIUM 146 mmol/L (136-145); UREA NITROGEN 13 mg/dL (7-18); eGFR NON AFRICAN AMERICAN > 90 mL/min (90-120)
--- NOTE | 2018-09-17 14:23 | NUR ---
RECIEVED TO ROOM VIA STRETCHER FROM RELAY ENGINEER WITH TR BAND TO R/WRIST CDI NO BLEEDING OR HEMATOMA NOTED. PATIENT DENIED CHEST PAIN ON ARRIVAL. DR NEAL AT BEDSIDE TALKING TO PATIENT AND FAMILY
--- NOTE | 2018-09-17 14:34 | NUR ---
TR BAND TO R/WRIST IS CDI NO BLEEDING OR HEMATOMA. INSTRUCTED PATIENT TO KEEP RUE STRAIGHT NO BENDING OR FLEXING OF WRIST. TOLERATING PO FLUIDS WITH NAUSEA DENIED
--- NOTE | 2018-09-17 14:56 | NUR ---
REPOSITIONED TO HOB UP 30 FOR COMFORT. SANDWICH AND SODA TO BEDSIDE TR BAND IS TO R/WRIST CDI WITH NO BLEEDING NOTED
--- NOTE | 2018-09-17 15:27 | NUR ---
RESTING QUIETLY WITH EYES CLOSED TR BAND TO R/WRIST IS CDI NO BLEEDING OR HEMATOMA NOTED. VSS
--- NOTE | 2018-09-17 16:07 | NUR ---
PATIENT VOIDS 400 CC CLEAR YELLOW URINE TO COLLECTION MEGHAN CARE PROVIDED. TR BAND REMAINS CDI
--- NOTE | 2018-09-17 16:30 | NUR ---
PATIENT VOICED NO PAIN OR NEEDS. TR BAND TO R/WRIST IS CDI
--- NOTE | 2018-09-17 16:38 | NUR ---
PIV REMOVED WITH DRESSING APPLIED. PATIENT DENIED CHEST PAIN AT THIS TIME UP TO GET DRESSED FOR DISCHARGE HOME
--- NOTE | 2018-09-17 17:02 | NUR ---
3 CC AIR REMOVED FROM TR BAND WITH NO BLEEDING OR HEMATOMA NOTED. PATIENT SITTING UP ON BEDSIDE WITH CHEST PAIN DENIED
--- NOTE | 2018-09-17 17:15 | NUR ---
4 CC AIR REMOVED FROM TR BAND WITH NO BLEEDING. PIV REMOVED WITH DRESSING APPLIED. PATIENT DENIED CHEST PAIN UP TO GET DRESSED FOR DISCHARGE HOME
--- NOTE | 2018-09-17 17:34 | NUR ---
VERBAL AND WRITTEN DISCHARGE GONE OVER WITH PATIENT AND FAMILY TR BAND REMOVED WITH NO BLEEDING OR HEMATOMA. PATIENT DENIED CHEST PAIN UP TO GET DRESSED FOR DISCHARGE HOME
--- NOTE | 2018-09-19 11:12 | OP ---
PATIENT NAME: MELISSA HECTOR MEDICAL RECORD: [id number] :57 LOCATION:D.CAT ADMISSION DATE: SURGEON: ABRAM NEAL MD DATE OF OPERATION: 09/17/2018 PROCEDURE: Left heart catheterization, selective coronary angiography, right radial approach. CATHETERS: Radial sheath and [place] catheter. The procedure was well tolerated. We proceeded with PTCA and stenting of the LAD. FINDINGS: Left ventriculography in 30-degree LYN view: Normal wall motion and normal systolic function. CORONARY ANATOMY: LEFT MAIN: Left main is free of disease. LAD: LAD has end-stent restenosis of about 90%. This involves the stent itself and just distal to the stent. CIRCUMFLEX: Large vessel, codominant, previously placed stents, free of disease. RIGHT CORONARY ARTERY: It has progressed in the [place] vessel with several lesions in the proximal one-half of up to 80%. PLAN: Intervention to LAD and right coronary in a stepwise fashion. Using indwelling sheath, XB LAD guiding catheter provided good guide catheter support followed by 300 cm Whisper wire placed across the tightly occluded LAD down this portion of vessel. Stent deployed was 3.0 x 18 mm David drug-eluting stent. No evidence of dissection or thrombus. Sheath was closed with TR band. Plavix was loaded in the lab. TRANSINT:[id number] Voice Confirmation ID: [id number] DOCUMENT ID: [id number] ABRAM NEAL MD at 1112 CC: [id number] DICTATION DATE: 09/17/18 1406 GRIZZLYMAN: 09/17/187 [facility] CLI 09/17/18 [place] [id number]
== END | disposition home or self-care (01) ==
LOC: D.CATH 11:05
PROVIDERS: ATTEND Internal Medicine Interventional Cardiology
DX: I25.119 Atherosclerotic heart disease of native coronary artery with unspecified angina pectoris (principal); Z01.812 Encounter for preprocedural laboratory examination
CPT/HCPCS: 93458; C9600

== ENCOUNTER 2018-10-01 11:07 | Outpatient (CLI) | payer MEDICARE ==
[~2018-10-01] VITALS: Ht 154.9 cm; Wt 90.9 kg
--- NOTE | ~2018-10-01 | HEMODYNAMI ---
PATIENT:MELISSA HECTOR MEDICAL RECORD: [id number] : 57 LOCATION:[facility]UREL ADMISSION DATE: 10/01/18 Generatedon:10/01/201813:27 Patient name: MELISSA HECTOR Patient #: [id number] SSN: : Date of study: 10/01/2018 Page: Of Hemodynamic Procedure Report Patient Data Patient Demographics Procedure consent was obtained First Name: MELISSA Gender: Female Last Name: TAWNY : 1955 [facility] Initial: HALLIE Age: 63 year(s) Patient #: [id number] Race: Unknown Additional ID: [id number] Contact details Address: [address] [place] [address] State: [place] City: [facility] Zip code: [address] Past Medical History Allergies Allergen Reaction Date Comments Reported Codeine 01/20/2015 Erythromycin 01/20/2015 Percocet 01/20/2015 Oxycodone Other allergy 01/20/2015 Flexeril Other allergy 09/17/2018 PERCOCET, FLEXERIL, ERYTHROMYCIN BASE, CODEINE Admission Admission Data Admission Date: 10/01/2018 Admission Time: 11:07 Procedure Procedure Types Cath Procedure PCI Procedure Coronary Stent Coronary Stent Initial Procedure Description Procedure Date Procedure Date: 10/01/2018 Procedure Start Time: 13:09 Procedure End Time: 13:27 Procedure Staff Name Function Brendon Haley MD Performing Physician Johann Lanza RT Monitor Tara Winter RN Nurse Cindy Huddleston RT Scrub Procedure Data Cath Procedure Fluoroscopy Diagnostic fluoroscopy Total fluoroscopy Time: 3 time: 3 min min Diagnostic fluoroscopy Total fluoroscopy dose: 587 dose: 587 mGy mGy Contrast Material Contrast Material Type Amount (ml) Isovue 370 53 Entry Location Entry Primary Successful Side Size Upsize Upsize Entry Closure Succes sful Closure Location (Fr) 1 (Fr) 2 (Fr) Remarks Device Remarks Femoral Right 6 Fr Exoseal artery Short Estimated blood loss: 10 ml Procedure Complications No complications Procedure Medications Medication Administration Route Dosage 0.9% NaCl I.V. 100 ml/hr Oxygen etCO2 Nasal cannula 3 l/min Lidocaine 2% added to field 20 Heparin Flush Bag added to field 2 bags (1000units/500ml NS) Versed I.V. 2 mg Fentanyl I.V. 50 mcg Fentanyl I.V. 50 mcg Heparin Bolus I.V. 5000 units Hemodynamics Rest Heart Rate: 55 (bpm) Pressure Samples Time Site Value (mmHg) Purpose Heart Use Rate(bpm) 13:15 AO 126/90(108) Snapshot 67 13:19 AO 132/94(113) Snapshot 68 Snapshots Pre Cath Intra NCS Post Cath Vital Signs Time Heart Resp SPO2 etCO2 NIBP (mmHg) Rhythm Pain Sedation Rate (ipm) (%) (mmHg) Status Level (bpm) 12:54:51 55 14 94 12.6 162/81(140) NSR 0 (11) 10(A) , No pain 12:59:17 62 21 93 42.3 157/92(140) NSR 0 (11) 10(A) , No pain 13:04:16 58 14 92 42.4 Measuring NSR 0 (11) 10(A) , No pain 13:07:04 59 13 92 42.4 149/88(114) NSR 0 (11) 10(A) , No pain 13:11:28 61 14 90 40.2 148/78(118) NSR 0 (11) 9(A) , No pain 13:15:49 67 13 91 43.1 142/78(111) NSR 0 (11) 9(A) , No pain 13:20:01 68 13 93 43.1 139/83(120) NSR 0 (11) 10(A) , No pain 13:24:19 66 16 90 44.6 142/83(119) NSR 0 (11) 10(A) , No pain Medications Time Medication Route Dose Verified Delivered Reason Notes Effectiveness by by 12:53:20 0.9% NaCl I.V. 100 Brendon Pacheco used for ml/hr [facility] Brenden Winter procedure MD MEJÍA 12:53:26 Oxygen etCO2 3 Brendon Pacheco used for Nasal l/min [facility] Brenden Winter procedure cannula MD MEJÍA 12:53:32 Lidocaine 2% added 20ml Brendon Olivas for local to vial [facility] anesthetic field MD [place] 12:53:36 Heparin Flush added 2 Brendon Olivas used for Bag to bags [facility] Brenden Halye procedure (1000units/500ml field MD [place] NS) 13:05:35 Versed I.V. 2 mg Brendon Pacheco for sedation St Brenden Winter MD, RN 13:05:41 Fentanyl I.V. 50 Brendon Tara for sedation mcg [facility] Brenden Winter MD, RN 13:10:43 Fentanyl I.V. 50 Brendon Juradoa for sedation mcg St Brenden Winter MD, RN 13:13:18 Heparin Bolus I.V. 5000 Brendon Pacheco for verif ied units St Brenden Winter anticoagulation with Dr. MD ALFONZO Pearson Procedure Log Time Note 12:30:21 Tara Winter RN sent for patient. Start room use. 12:44:28 Time tracking: Regular hours (M-F 7:00 - 5:00) 12:44:32 Plan of Care:Hemodynamics will remain stable., Cardiac rhythm will remain stable., Comfort level will be maintained., Respiratory function will remain adequate., Patient/ family verbilizes understanding of procedure., Procedure tolerated without complication., Recovers from procedure without complications.. 12:44:41 Patient received from Pre/Post Procedure Room to [facility] 2 Alert and oriented. Tansferred to table in Supine position. 12:44:42 Warm blankets applied, and sumanth hugger turned on for patient comfort. 12:44:43 Correct patient and procedure confirmed by team. 12:44:44 Signed procedure consent form obtained from patient. 12:44:45 ECG and BP/O2 sat monitors applied to patient. 12:53:00 Vital chart was started 12:53:20 0.9% NaCl 100 ml/hr I.V. was administered by Tara Winter RN; used for procedure; 12:53:26 Oxygen 3 l/min etCO2 Nasal cannula was administered by Tara Winter RN; used for procedure; 12:53:32 Lidocaine 2% 20ml vial added to field was administered by Brendon Haley MD; for local anesthetic; 12:53:36 Heparin Flush Bag (1000units/500ml NS) 2 bags added to field was administered by Brendon Haley MD; used for procedure; 12:53:51 Pt arrived to the 89% on RA. Will apply 3LNC and continue to monitor. 12:54:52 Baseline sample Acquired. 12:54:57 Rhythm: sinus bradycardia 12:54:59 Full Disclosure recording started 12:59:23 Baseline sample Acquired. 12:59:30 H&P Date Dictated: 10/01/2018 New H&P dictated by physician.. 12:59:31 Pre-procedure instructions explained to patient. 12:59:31 Pre-op teaching completed and patient verbalized understanding. 12:59:33 Family in waiting room. 12:59:40 Patient NPO since Midnight. 13:00:10 Is the patient allergic to Iodine/contrast media? No. 13:00:14 Is patient on blood thinner?Yes 13:00:19 ACC The patient was administered the following blood thiners within the last 24 hours: ACCPlavix 13:00:37 Patient diabetic? No. 13:00:43 Previous problem with sedation/anesthesia? No ? 13:00:46 Snore? Yes 13:00:47 Sleep apnea? No 13:00:48 Deviated septum? No 13:00:49 Opens mouth fully? Yes 13:00:50 Sticks out tongue? Yes 13:00:53 Airway obstruction? No ? 13:00:58 Dentures? Yes IN 13:01:03 Pre procedure: right dorsailis pedis pulse 1+ Palpable, but thready & weak; easily obliterated 13:01:05 Patient pain scale 0/10 ?. 13:01:12 IV patent on arrival in right hand with 0.9% NaCl at [facility]. 13:01:13 Lab results completed and on chart. 13:01:16 Right groin area was prepped with chlora-prep and draped in sterile fashion 13:01:17 Alarms reviewed by R. N. 13:01:18 Sharps counted by scrub and verified by R.N. 13:04:18 --------ALL STOP TIME OUT------ 13:04:19 Final Timeout: patient, procedure, and site verified with staff and physician. All members of the team are in agreement. 13:04:21 Right groin site verified by team. 13:04:24 Maximum allowable Isovue 370 dose 300ml. Physician notified. (300ml for normal creatinines. For patients with creatinine of 1.7 or higher multiply weight(kg) x 5 divided by creatinine.) 13:04:28 Fire Safety Assessment: A--An alcohol-based skin anteseptic being used preoperatively., C--Open oxygen or nitrous oxide is being used., D--An ESU, laser, or fiber-optic light is being used. 13:04:30 Physical assessment completed. ASA score P 2 - A patient with mild systemic disease as per Brendon Haley MD. 13:04:33 Sedation plan: IV Moderate Sedation Medication:Versed, Fentanyl 13:05:35 Versed 2 mg I.V. was administered by Tara Winter RN; for sedation; 13:05:41 Fentanyl 50 mcg I.V. was administered by Tara Winter RN; for sedation; 13:05:56 Zero performed for pressure channel P1 13:06:17 Use device set Radial Dx or PCI 13:06:19 Use device set ÁNGEL PCI 13:06:20 Tegaderm 4 x 4 (1626W) opened to sterile field. 13:06:21 ACIST Manifold (66927) opened to sterile field. 13:06:22 ACIST Hand Control (02576) opened to sterile field. 13:06:23 ACIST Syringe (25404) opened to sterile field. 13:06:23 Medline Cath Pack ([id number]) opened to sterile field. 13:06:24 Bag Decanter (2002) opened to sterile field. 13:06:24 DIAGNOSTIC WIRE .035 260cm J wire (848093) opened to sterile field. 13:06:27 INFLATOR Merit BasixCompak (GL9429) opened to sterile field. 13:06:29 WHISPER 300cm guide wire ([id number]) opened to sterile field. 13:06:32 SHEATH 6FR Volga (RNK775) opened to sterile field. 13:09:07 Procedure started. 13:09:16 Local anesthetic to right femoral artery with Lidocaine 2% by Brendon Haley MD.INITIAL ACCESS ONLY 13:10:40 A 6 Fr Short sheath was inserted into the Right Femoral artery 13:10:43 Fentanyl 50 mcg I.V. was administered by Tara Winter RN; for sedation; 13:10:52 Pre PCI Site: [place] pRCA has 80% stenosis. 13:11:02 6 Fr HS 1 SH guide catheter was inserted over the wire 13:11:08 GUIDE 6FR HS I SH catheter ([id number]) opened to sterile field. 13:12:53 Whisper wire advanced. 13:13:18 Heparin Bolus 5000 units I.V. was administered by Tara Winter RN; for anticoagulation; verified with Dr. Pearson 13:14:54 Wire advanced across lesion. 13:16:02 Place stent Inflation Number: 1 A MICHAEL OTW 3.0 x 30 stent ([id number]) was prepped and advanced across the Prox RCA 80. The stent was deployed at 16 RANDY for 0:30 (min:sec) 0. 13:17:25 Stent catheter was removed intact over wire. 13:19:56 Place stent Inflation Number: 1 A MICHAEL OTW 3.0 x 18 stent ([id number]) was prepped and advanced across the Mid RCA 80. The stent was deployed at 14 RANDY for 0:30 (min:sec) 0. 13:21:11 EXOSEAL 6Fr (EX600) opened to sterile field. 13:21:21 Stent catheter was removed intact over wire. 13:21:22 Wire removed. 13:21:22 Guide catheter removed. 13:21:33 Sheath removed intact; hemostasis achieved with Exoseal to the Right Femoral artery. 13:21:35 Procedure ended.(Physican Out) 13:25:10 Fluoroscopy time 03.00 minutes. 13:26:26 Flurop Dose total: 587 13:26:26 Fluoroscopy dose: 587 mGy 13:26:40 Contrast amount:Isovue 370 53ml. 13:26:41 Sharps counted by scrub and verified by R.N. 13:26:42 Insertion/operative site no bleeding no hematoma. 13:26:45 Post-op/insertion site Right Femoral artery dressed using a 4 x 4 and Tegaderm. 13:26:47 Post Procedure Pulses reassessed and unchanged 13:26:50 Post-procedure physical assessment completed. ASA score P 2 - A patient with mild systemic disease as per Brendon Haley MD. 13:26:52 Post procedure rhythm: unchanged. 13:26:55 Estimated blood loss: 10 ml 13:26:56 Post procedure instruction explained to patient.Patient verbalizes understanding. 13:26:57 Patient needs reinforcement of post procedure teaching. 13:27:01 Procedure and supply charges have been captured, reviewed, submitted and are correct. 13:27:07 Procedure Complication : No complications 13:27:24 Vital chart was stopped 13:27:25 See physician's report for complete and final results. 13:27:26 Report given to Pre/Post Procedure Room. 13:27:28 Patient transfered to Pre/Post Procedure Room with Stretcher. 13:27:30 Procedure ended. 13:27:30 Full Disclosure recording stopped 13:27:33 End room use (Document Last) Intervention Summary Intervention Notes Time ActionType Lesion and Equipment Action# Pressure Duration Attributes Used 13:16:02 Place stent Prox RCA MICHAEL OTW 3.0 1 16 00:30 x 30 stent ([id number]) 13:19:56 Place stent Mid RCA MICHALE OTW 3.0 1 14 00:30 x 18 stent ([id number]) Device Usage Item Name Manufacture Quantity Catalog Hospital Part Current Mini mal Lot# / Number Charge Number Stock Stock Serial# Code Tegaderm 4 x 3M 1 1626W [id number] 554341 955681 5 4 (1626W) ACIST Acist 1 70878 502534 822582 260568 5 Manifold Medical (17556) Systems Inc ACIST Hand Acist 1 14600 270687 590850 249882 5 Control Medical (63304) Systems Inc ACIST Syringe Acist 1 52670 462788 814186 825443 20 (93184) Medical Systems Inc Medline Cath Medline 1 [id number] 982694 51605 226570 5 Pack ([id number]) Bag Decanter Microtek 1 2002S 126553 89181 048362 5 (2001S) Medical Inc. DIAGNOSTIC St Dre 1 298546 472434 714844 791574 30 WIRE .035 260cm J wire (162905) INFLATOR Merit 1 ZF5626 909147 039999 648958 15 [place] Medical BasixCompak (OC7522) WHISPER 300cm [place] 1 [id number] 725940 715379 639624 5 guide wire Vascular ([id number]) SHEATH 6FR Terumo 1 JPP487 784178 595050 976190 40 Volga (DGZ466) GUIDE 6FR HS Medtronic 1 [id number] 673421 27050 577860 1 I SH catheter ([id number]) MICHAEL OTW 3.0 Medtronic 1 [id number] 624616 1801157 791303 5 [id number] x 30 stent ([id number]) MICHAEL OTW 3.0 Medtronic 1 [id number] 023246 3523651 561062 5 [id number] x 18 stent ([id number]) EXOSEAL 6Fr Cardinal 1 EX600 147547 047810 120253 10 (EX600) Health Signature Audit [place] Stage Time Signature Unsigned Intra-Procedure 10/01/2018 Johann Lanza 1:27:47 PM RT(R) Signatures Monitor : Johann Lanza RT Signature : Date : Time : [place] [id number] [place] [address]
[2018-10-01 11:27] VITALS: BP 131/74; Ht 154.9 cm; Wt 90.9 kg
[2018-10-01 11:47] LABS: BASOPHILS 0.1 % (0-2); EOSINOPHILS 2.5 % (0-7); HEMOGLOBIN 11.6 g/dL (12-16); IMMATURE GRANULOCYTES 0.1 % (0-5); LYMPHOCYTES 15.2 % (15-50); MCH 27.5 pg (26.0-34.0); MCHC 32.2 g/dL (31.0-37.0); MCV 85.3 fL (80.0-100.0); MEAN PLATELET VOLUME 9.3 fL (7.4-10.4); MONOCYTES 6.4 % (2-11); NEUTROPHILS 75.7 % (40-80); PLATELET COUNT 176 10x3/uL (130-400); RBC 4.22 10x6/uL (4.00-5.40); RDW 14.1 % (11.5-14.5); WBC 6.7 10x3/uL (4.8-10.8)
[2018-10-01 11:51] LABS: CALC OSMOLALITY 289 mosm/kg (275-300); CALCIUM 9.2 mg/dL (8.5-10.1); CARBON DIOXIDE 32.4 mmol/L (21.0-32.0); CHLORIDE - SERUM 104 mmol/L (98-107); CREATININE - SERUM 0.7 mg/dL (0.6-1.3); GLUCOSE 95 mg/dL (74-106); POTASSIUM - SERUM 3.8 mmol/L (3.5-5.1); SODIUM 145 mmol/L (136-145); UREA NITROGEN 15 mg/dL (7-18); eGFR NON AFRICAN AMERICAN 90 mL/min (90-120)
[2018-10-01] MEDS ORDERED: PLAVIX75 MG PO (13:28)
[2018-10-01] MEDS ORDERED: BAYER CHEWABLE81 MG PO (13:28)
--- NOTE | 2018-10-01 13:30 | NUR ---
RECIEVED TO ROOM VIA STRETCHER FROM [employer]ES CONSULTANT WITH 6 FR EXOSEAL R/GROIN CDI NO BLEEDING OR HEMATOMA NOTED. DR NEAL PRESENT WITH PATIENT. FAMILY INFORMED OF FINDINGS PATIENT CONNECTED TO MONITOR FOR OBSERVATION WITH HR 62 BP 132/72 CHEST PAIN IS DENIED
--- NOTE | 2018-10-01 13:45 | NUR ---
PATIENT DENIED CHEST PAIN VSS AND 6 FR EXOSEAL R/GROIN IS CDI
--- NOTE | 2018-10-01 13:58 | NUR ---
PATIENT COMPLAINS OF BACK PAIN AND REQUEST TO REPOSITION. ASSIST PROVIDED WITH NO RELIEVE PAIN IS RATED AT [address] NEAL NOTIFIED WITH NEW ORDERS FOR NORCO 10/325 X ONE TO BE GIVEN
--- NOTE | 2018-10-01 14:21 | NUR ---
PATIENT VERBALIZED RELIEF OF BACK PAIN NOW AT 3 ON SCALE AFTER NORCO 10/325 GIVEN ORAL. 6 FR EXOSEAL TO R/GROIN IS CDI WITH VSS
--- NOTE | 2018-10-01 15:00 | NUR ---
PT RESTING COMFORTABLY. VSS. RIGHT GROIN DRESSING C/D/I. NO S/S OF HEMATOMA NOTED. FAMILY AT BEDSIDE
--- NOTE | 2018-10-01 15:49 | NUR ---
PT ON BEDPAN. VOIDED WITHOUT DIFFICULTY. MEGHAN-CARE GIVEN. RIGHT GROIN DRESSING C/D/I. NO S/S OF HEMATOMA NOTED.
--- NOTE | 2018-10-01 16:30 | NUR ---
RIGHT GROIN DRESSING C/D/I. NO S/S OF HEMATOMA NOTED. VSS. PT'S HEAD OF BED INC TO 30 DEGREES. TOLERATED WELL. FAMILY AT BEDSIDE.
--- NOTE | 2018-10-01 16:58 | NUR ---
LEFT ARM PIV D/C'D WITH CATH TIP INTACT. PT TOLERATED WELL. VSS. RIGHT GROIN DRESSING C/D/I. NO S/S OF HEMATOMA NOTED. PT INSTRUCTED TO GET UP AND DRESSED. FAMILY AT BEDSIDE FOR ASSISTANCE. THEY REPORT THEY DO NOT NEED ANY HELP AT THIS TIME. CALL LIGHT WITHIN REACH AND PT INSTRUCTED TO CALL FOR ASSISTANCE IF NEEDED.
--- NOTE | 2018-10-01 17:10 | NUR ---
DISCUSSED DISCHARGE INSTRUCTIONS WITH PT. SHE VOICED UNDERSTANDING.
--- NOTE | 2018-10-01 17:20 | NUR ---
PT OUT TO VEHICLE BY PERSONAL WHEELCHAIR. ALL BELONGINGS AND PAPERWORK IN HAND. NO S/S OF DISTRESS NOTED.
--- NOTE | 2018-10-03 09:47 | HP ---
PATIENT: MELISSA HECTOR MEDICAL RECORD: [id number] ACCOUNT: [id number] LOCATION:ZAN : 57 ADMISSION DATE: 10/01/18 PCP: VALORIE PHILIP DO HISTORY AND PHYSICAL EXAMINATION HISTORY OF PRESENT ILLNESS: A 63-year-old lady with known history of coronary artery disease, status post recent intervention is being brought back for intervention of the right. Initially presented with angina, has a history of dyslipidemia, strong family history of coronary artery disease as well as diabetes mellitus. ALLERGIES: CODEINE, FLEXERIL, PERCOCET, ERYTHROMYCIN. MEDICATIONS: Include Lipitor 20 every day, [place] 10/325 every day, trazodone 100 at bedtime. PHYSICAL EXAMINATION: GENERAL: The patient is a well-developed, well-nourished female above ideal body weight. HEENT: Normocephalic, atraumatic. NECK: No JVD or bruit. HEART: Regular. LUNGS: Franco clear. ABDOMEN: Soft, nontender. EXTREMITIES: Pulse 2+. No edema. ASSESSMENT AND PLAN: Intervention of the right second vessel in a staged fashion. TRANSINT:[id number] Voice Confirmation ID: [id number] DOCUMENT ID: [id number] ABRAM NEAL MD at 0947 CC: [id number] DICTATION DATE: 10/01/18 1301 RESOURCE ECONOMIST: 10/01/18 1347 DEP CLI 10/01/18 [place] [id number]
--- NOTE | 2018-10-03 09:47 | OP ---
PATIENT NAME: MELISSA HECTOR MEDICAL RECORD: [id number] :57 LOCATION:D.CAT ADMISSION DATE: SURGEON: ABRAM NEAL MD DATE OF OPERATION: 10/01/2018 PROCEDURES: PTCA and stenting to the right coronary. CATHETERS: A 6-Faroese sheath, hockey stick catheter. The procedure was tolerated. The patient returned to the mayen, sheath removed. ExoSeal device was placed. Hockey stick guiding cather placed in the right coronary ostium. This confirmed severe diffuse disease, greatest of 80% from the mid right down to the proximal right coronary. After a 300 cm Whisper wire was placed across the diffusely diseased to right, stents were placed in the following fashion. 3.0 x 30 and 3.0 x 18, both [place] drug-eluting stent up to 16 atmospheres for 45 seconds. Final angiography shows excellent resolution of severe diffuse up to 80% stenosis, no significant residual. KEO flow was 3 throughout the procedure. The patient was previously on Plavix. Heparin was used during the case. Sheath was closed with ExoSeal device. TRANSINT:[id number] Voice Confirmation ID: [id number] DOCUMENT ID: [id number] ABRAM NEAL MD at 0947 CC: [id number] DICTATION DATE: 10/01/18 1333 SENIOR SYSTEMS ADMINISTRATOR: 10/01/18 1423 DEP CLI 10/01/18 [place] [id number] [place] [address]
== END 2018-10-01 17:20 | disposition home or self-care (01) ==
LOC: D.CATH 11:07
PROVIDERS: ATTEND Internal Medicine Interventional Cardiology
DX: I25.119 Atherosclerotic heart disease of native coronary artery with unspecified angina pectoris (principal); Z01.812 Encounter for preprocedural laboratory examination

== ENCOUNTER → 2018-10-13 12:57 | Outpatient (CLI) | payer MEDICARE ==
[2018-10-01 11:27] VITALS: BMI 37.8
[2018-10-13 15:47] LABS: ALBUMIN 3.8 g/dL (3.4-5.0); BILIRUBIN - DIRECT 0.27 mg/dL (0.00-0.30); BILIRUBIN - INDIRECT 0.62 mg/dL (0.00-1.00); BILIRUBIN - TOTAL 0.89 mg/dL (0.2-1.3); PROTEIN - SERUM 7.4 g/dL (6.4-8.2)
[2018-10-14 10:15] LABS: ANA REFLEX - DIRECT Negative (Negative)
== END | disposition home or self-care (01) ==
LOC: D.RAD 11:45 → D.LAB 13:15 → D.RT 13:30
PROVIDERS: ATTEND Internal Medicine Pulmonary Disease
DX: J44.9 Chronic obstructive pulmonary disease, unspecified (principal); I27.20 Pulmonary hypertension, unspecified

== ENCOUNTER 2018-10-20 07:08 | Emergency (ER) | payer MEDICARE ==
[~2018-10-20] VITALS: Ht 154.9 cm; Wt 100.0 kg
[2018-10-20 07:13] VITALS: Ht 154.9 cm; Wt 100.0 kg
[2018-10-20 08:11] LABS: BASOPHILS 0 % (0-2); EOSINOPHILS 0 % (0-7); HEMATOCRIT 34.8 % (36.0-48.0); HEMOGLOBIN 11.4 g/dL (12-16); IMMATURE GRANULOCYTES 0.1 % (0-5); LYMPHOCYTES 7.4 % (15-50); MCH 27.7 pg (26.0-34.0); MCHC 32.8 g/dL (31.0-37.0); MCV 84.5 fL (80.0-100.0); MEAN PLATELET VOLUME 9.3 fL (7.4-10.4); MONOCYTES 8.3 % (2-11); NEUTROPHILS 84.2 % (40-80); PLATELET COUNT 168 10x3/uL (130-400); RBC 4.12 10x6/uL (4.00-5.40); RDW 13.6 % (11.5-14.5); WBC 8.5 10x3/uL (4.8-10.8)
[2018-10-20 08:20] LABS: ALBUMIN 3.5 g/dL (3.4-5.0); ALKALINE PHOSPHATASE 172 U/L (46-116); ALT (SGPT) 20 U/L (10-68); BILIRUBIN - TOTAL 1.18 mg/dL (0.2-1.3); CALC OSMOLALITY 280 mosm/kg (275-300); CALCIUM 9.3 mg/dL (8.5-10.1); CARBON DIOXIDE 28.1 mmol/L (21.0-32.0); CHLORIDE - SERUM 101 mmol/L (98-107); CREATININE - SERUM 0.8 mg/dL (0.6-1.3); GLUCOSE 127 mg/dL (74-106); POTASSIUM - SERUM 3.1 mmol/L (3.5-5.1); PROTEIN - SERUM 8.1 g/dL (6.4-8.2); SODIUM 139 mmol/L (136-145); UREA NITROGEN 14 mg/dL (7-18); eGFR NON AFRICAN AMERICAN 77 mL/min (90-120)
[2018-10-20 08:24] LABS: AMYLASE - SERUM 18 U/L (25-115); LIPASE 78 U/L (73-393); TROPONIN-I < 0.017 ng/mL (0.000-0.060)
[2018-10-20 09:03] VITALS: BP 151/91
== END 2018-10-20 09:03 | disposition home or self-care (01) ==
LOC: D.ER 07:08
PROVIDERS: Family Medicine
DX: R51 Headache (principal); I25.10 Atherosclerotic heart disease of native coronary artery without angina pectoris

== ENCOUNTER 2019-01-27 08:00 | Outpatient (CLI) | payer MEDICARE ==
[2018-10-20 07:13] VITALS: BMI 41.6
== END 2019-01-27 23:59 | disposition home or self-care (01) ==
LOC: D.MAMMO 08:00
PROVIDERS: ATTEND Family Medicine
DX: Z12.31 Encounter for screening mammogram for malignant neoplasm of breast (principal)

== ENCOUNTER → 2019-03-11 14:00 | Outpatient (CLI) | payer MEDICARE ==
[2018-10-20 07:13] VITALS: BMI 41.6
== END | disposition home or self-care (01) ==
LOC: D.MAMMO 09:00
PROVIDERS: ATTEND Family Medicine
DX: R92.8 Other abnormal and inconclusive findings on diagnostic imaging of breast (principal)

== ENCOUNTER → 2019-04-22 09:08 | Outpatient (CLI) | payer MEDICARE ==
[2018-10-20 07:13] VITALS: BMI 41.6
--- NOTE | 2019-04-23 14:04 | EC ---
PATIENT:MELISSA HECTOR DATE OF SERVICE: 04/22/19 SEX: F MEDICAL RECORD: [id number] DATE OF : 57 LOCATION:D.[facility] AGE OF PATIENT: 64 ADMISSION DATE: 04/22/19 REFERRING PHYSICIAN: INTERPRETING PHYSICIAN: TEMI AGOSTO MD ECHOCARDIOGRAM REPORT ECHO CHARGES 4 ECHO COMPLETE Date: 04/22/19 CLINICAL DIAGNOSIS: PULMONARY HTN ECHOCARDIOGRAPHIC MEASUREMENTS (adult normal given) AC root (d.<3.7cm) 3.9 cm LV Septum d (<1.2 cm> 1.8 cm Valve Excursion 2.3 cm LV Septum (systole) 2.1 cm Left Atria (s.<4.0cm> 3.4 cm LVPW d(<1.2cm) 1.8 cm RV (d.<2.3cm) 4.9 cm LVPW (sytole) 2.1 cm LV diastole(<5.6CM) 5.6 cm MV E-F(>70mm/sec) cm LV systole 3.9 cm LVOT Diameter 1.7 cm MV exc.(>10mm) cm Est.ejection fraction (50-75%) % DOPPLER: LVIT cm/sec A 99.0 cm/sec E 81.0 cm/sec LA cm/sec RVSP 17 mmHg LVOT 126 cm/sec AOP1/2T m/s Asc. Ao 191 cm/sec RVOT 124 cm/sec RA cm/sec PA 154 cm/sec AV Gradient Peak 14.65mmHg AV Mean 7.50 mmHg AV Area 1.6 cm MV Gradient Peak 5.69 mmHg MV Mean 1.41 mmHg MV Area cm COMMENTS: Winchman/Crane Operator: Marco NGUYEN Converter Operator: 1 Dr. Agosto TAPE# PACS Pericardial Effusion N DATE OF SERVICE: Echocardiogram FINDINGS: 1. Left ventricular chamber size is within normal limits. Left ventricular systolic function is normal. Overall ejection fraction estimated at 55% to 60%. 2. Left atrium is within normal limits at 3.4 cm. Right atrium and right ventricle chamber sizes are mildly dilated. 3. Valvular structures have normal structure and motion. ECHOCARDIOGRAM REPORT [id number] MELISSA HECTOR 4. Doppler interrogation reveals only mild tricuspid regurgitation, no other valvular insufficiency or stenosis. 5. No evidence of pericardial effusion or left ventricular thrombus. TRANSINT:[id number] Voice Confirmation ID: [id number] DOCUMENT ID: [id number] TEMI AGOSTO MD at 1404 CC: [id number] DICTATION DATE: 04/22/19 162 MOTION PICTURE FILM EXAMINER: 04/23/19 0224 DEP CLI 04/22/19 [place] [id number] [place] [id number]
== END | disposition home or self-care (01) ==
LOC: D.ECHO 01-23 09:30
PROVIDERS: ATTEND Internal Medicine Pulmonary Disease
DX: I27.20 Pulmonary hypertension, unspecified (principal)

== ENCOUNTER 2019-09-30 09:54 | Emergency (ER) | payer MEDICARE ==
[~2019-09-30] VITALS: Ht 154.9 cm; Wt 100.0 kg
[2019-09-30 10:09] VITALS: Ht 154.9 cm; Wt 100.0 kg
[2019-09-30 10:34] LABS: APTT 28.2 SECONDS (22.8-39.4); INR 0.94 (0.85-1.17); PROTIME 12.5 SECONDS (11.6-15.0)
[2019-09-30 10:35] LABS: BASOPHILS 0 % (0-2); EOSINOPHILS 3.5 % (0-7); HEMATOCRIT 40.3 % (36.0-48.0); HEMOGLOBIN 12.5 g/dL (12-16); IMMATURE GRANULOCYTES 0.5 % (0-5); LYMPHOCYTES 19.9 % (15-50); MCH 27.8 pg (26.0-34.0); MCV 89.8 fL (80.0-100.0); MEAN PLATELET VOLUME 8.8 fL (7.4-10.4); MONOCYTES 6.8 % (2-11); NEUTROPHILS 69.3 % (40-80); PLATELET COUNT 199 10x3/uL (130-400); RBC 4.49 10x6/uL (4.00-5.40); RDW 13.7 % (11.5-14.5)
[2019-09-30 10:52] LABS: CALC OSMOLALITY 279 mosm/kg (275-300); CALCIUM 9.5 mg/dL (8.5-10.1); CARBON DIOXIDE 30.7 mmol/L (21.0-32.0); CHLORIDE - SERUM 102 mmol/L (98-107); CREATININE - SERUM 0.8 mg/dL (0.6-1.3); GLUCOSE 128 mg/dL (74-106); POTASSIUM - SERUM 4.2 mmol/L (3.5-5.1); SODIUM 140 mmol/L (136-145); UREA NITROGEN 10 mg/dL (7-18); eGFR NON AFRICAN AMERICAN 77 mL/min (90-120)
[2019-09-30 11:07] LABS: ALBUMIN 3.7 g/dL (3.4-5.0); ALKALINE PHOSPHATASE 129 U/L (30-120); ALT (SGPT) 59 U/L (10-68); BILIRUBIN - TOTAL 0.77 mg/dL (0.2-1.3); CKMB 0.6 U/L (0.0-3.6); CREATINE KINASE 54 UL (21-215); PRO BNP 295 pg/mL (0-125); PROTEIN - SERUM 7.3 g/dL (6.4-8.2); TROPONIN-I < 0.017 ng/mL (0.000-0.060)
[2019-09-30 11:54] LABS: BACTERIA FEW /hpf (NEGATIVE); BILIRUBIN NEGATIVE (NEGATIVE); GLUCOSE NEGATIVE (NEGATIVE); KETONE NEGATIVE (NEGATIVE); NITRITE NEGATIVE (NEGATIVE); RED CELLS - URINE NONE SEEN /hpf (0-5); SPECIFIC GRAVITY 1.015 (1.005-1.020); UROBILINOGEN 4 mg/dL (NORMAL); WHITE CELLS - URINE RARE /hpf (NEGATIVE)
[2019-09-30 11:55] LABS: EPITHELIAL CELLS 0-5 /hpf (0-5); YEAST <1+ /hpf (NONE SEEN)
[2019-09-30] MEDS ORDERED: FUROSEMIDE20 MG PO (12:26)
[2019-09-30] MEDS ORDERED: ALBUTEROL SULF8.5 GM INH (12:26)
[2019-09-30 12:56] VITALS: BP 130/88
== END 2019-09-30 12:57 | disposition home or self-care (01) ==
LOC: D.ER 09:54
PROVIDERS: Family Medicine
DX: R07.9 Chest pain, unspecified (principal); I11.0 Hypertensive heart disease with heart failure; I50.9 Heart failure, unspecified; R30.0 Dysuria; R79.89 Other specified abnormal findings of blood chemistry; R06.02 Shortness of breath

== ENCOUNTER 2019-10-02 13:29 | Inpatient (IN) | payer MEDICARE ==
[~2019-10-02] VITALS: Ht 154.9 cm; Wt 114.1 kg
[~2019-10-02 13:29] MED LIST changes: +ALBUTEROL SULF8.5 GM INH; +FUROSEMIDE20 MG PO
--- NOTE | 2019-10-02 14:10 | NUR ---
PT ARRIVED ON UNIT VIA WHEELCHAIR, HOOKED TO MONITORS, ALERT AND ORIENTED, NSR ON MONITOR, ON 2L NC WITH 97% O2 SAT. ALL PPP, VSS, CALL LIGHT IN REACH
[2019-10-02 14:30] VITALS: BP 106/86; BMI 47.5
[2019-10-02 14:32] LABS: ALBUMIN 3.6 g/dL (3.4-5.0); ANION GAP 9.1 mmol/L (8-16); BILIRUBIN - TOTAL 0.49 mg/dL (0.2-1.3); CALCIUM 9.4 mg/dL (8.5-10.1); CARBON DIOXIDE 33.8 mmol/L (21.0-32.0); CREATININE - SERUM 1.1 mg/dL (0.6-1.3); MAGNESIUM - SERUM 1.9 mg/dL (1.8-2.4); POTASSIUM - SERUM 3.9 mmol/L (3.5-5.1); PROTEIN - SERUM 7.5 g/dL (6.4-8.2)
[2019-10-02 14:55] LABS: CKMB 0.5 U/L (0.0-3.6); CREATINE KINASE 53 UL (21-215); TROPONIN-I < 0.017 ng/mL (0.000-0.060)
[2019-10-02 15:33] LABS: BASOPHILS 0.2 % (0-2); EOSINOPHILS 2.4 % (0-7); HEMATOCRIT 41.4 % (36.0-48.0); HEMOGLOBIN 12.6 g/dL (12-16); IMMATURE GRANULOCYTES 0.2 % (0-5); LYMPHOCYTES 15.3 % (15-50); MCH 27.7 pg (26.0-34.0); MCHC 30.4 g/dL (31.0-37.0); MEAN PLATELET VOLUME 9.2 fL (7.4-10.4); MONOCYTES 7.8 % (2-11); NEUTROPHILS 74.1 % (40-80); PLATELET COUNT 243 10x3/uL (130-400); RBC 4.55 10x6/uL (4.00-5.40); RDW 14.2 % (11.5-14.5); WBC 6.6 10x3/uL (4.8-10.8)
--- NOTE | 2019-10-02 16:20 | NUR ---
RECEIVED PT TO ROOM 2117 VIA WHEELCHAIR FROM ICU ACCOMPANIED BY STAFF. VSS. NO ACUTE NEEDS OR DISTRESS NOTED AT THIS TIME, PT DENIES ANY ACUTE PAIN OR DISCOMFORT. PT STATES "I AM FEELING MUCH BETTER". PT RESTING IN BED WATCHING TV. WILL CONT TO MONITOR. S/O AT BEDSIDE.
--- NOTE | 2019-10-02 16:39 | NUR ---
ORIENTED TO UNIT, CALL LIGHT IN REACH, BED IN LOWEST POSITION. WILL CONT TO MONITOR.
[2019-10-02 18:58] LABS: APTT 28.1 SECONDS (22.8-39.4); INR 0.96 (0.85-1.17); PROTIME 12.8 SECONDS (11.6-15.0)
--- NOTE | 2019-10-02 19:41 | NUR ---
RECEIVED BEDSIDE REPORT. PATIENT IS ALERT AND ORIENTED, RESTING COMFORTABLY IN BED. RESPIRATIONS ARE EVEN AND UNLABORED. NO S/S OF DISTRESS. NO C/O PAIN. CALL LIGHT WITHIN REACH. WILL CPOC.
[2019-10-02 20:30] VITALS: BP 97/58
[2019-10-02 21:01] LABS: CKMB 0.3 U/L (0.0-3.6); CREATINE KINASE 54 UL (21-215); TROPONIN-I < 0.017 ng/mL (0.000-0.060)
[2019-10-03 02:58] LABS: BASOPHILS 0.2 % (0-2); EOSINOPHILS 3.7 % (0-7); HEMATOCRIT 38.2 % (36.0-48.0); HEMOGLOBIN 11.4 g/dL (12-16); IMMATURE GRANULOCYTES 0.2 % (0-5); MCH 27.6 pg (26.0-34.0); MCHC 29.8 g/dL (31.0-37.0); MCV 92.5 fL (80.0-100.0); MEAN PLATELET VOLUME 8.8 fL (7.4-10.4); MONOCYTES 10.8 % (2-11); NEUTROPHILS 61.1 % (40-80); PLATELET COUNT 212 10x3/uL (130-400); RBC 4.13 10x6/uL (4.00-5.40); RDW 14.4 % (11.5-14.5)
[2019-10-03 03:11] LABS: WBC 4.4 10x3/uL (4.8-10.8)
[2019-10-03 03:31] LABS: CALC OSMOLALITY 294 mosm/kg (275-300); CALCIUM 9.1 mg/dL (8.5-10.1); CARBON DIOXIDE 34.1 mmol/L (21.0-32.0); CHLORIDE - SERUM 105 mmol/L (98-107); CKMB 0.3 U/L (0.0-3.6); CREATINE KINASE 44 UL (21-215); GLUCOSE 144 mg/dL (74-106); POTASSIUM - SERUM 3.9 mmol/L (3.5-5.1); SODIUM 144 mmol/L (136-145); TROPONIN-I < 0.017 ng/mL (0.000-0.060); UREA NITROGEN 26 mg/dL (7-18); eGFR NON AFRICAN AMERICAN 59 mL/min (90-120)
[2019-10-03 04:30] VITALS: BP 90/49
--- NOTE | 2019-10-03 07:15 | NUR ---
RECEIVED PT IN BED EYES CLOSED RESP UNLABORED SKIN W/D COLOR WNL NAD NOTED ASLEEP AT BEDSIDE
[2019-10-03 10:26] VITALS: Ht 154.9 cm; Wt 114.1 kg
[2019-10-03 13:04] VITALS: BP 106/66
[2019-10-03 18:00] VITALS: BP 119/74
[2019-10-03 20:30] VITALS: BP 132/54
--- NOTE | 2019-10-04 00:25 | NUR ---
INITIAL ROUNDS COMPLETED AT 1905 HRS. PT HAD C/O CHRONIC BACK PAIN. NORCO GIVEN AT 1918 HRS. ASSESSMENT COMPLETED AT 2015 HRS. VSS. ALERT AND ORIENTED TO PERSON,PLACE AND TIME. MAE. Heather LEWIS NOTED. SR PER CM HR 79. O2 2LNC. LUNGS DIMINISHED IN BASES BILAT. IV TO R WRIST SL. PM FSBS 167. HUMALOG 2 UNITS GIVEN SUB-Q TO UPPER R ARM PER S/S. PT REFUSED PM SNACK. HAS CANDY AT BEDSIDE. PM MEDS GIVEN. PT CURRENTLY RESTING WITH EYES CLOSED. RESP EVEN AND REGULAR. SR UP X1, CALL LIVGHT WITHIN REACH.
--- NOTE | 2019-10-04 03:18 | NUR ---
PT RESTING WITH EYES CLOSED. RESP EVEN AND REGULAR. SR UP X1, CALL LIGHT WITHIN REACH.
[2019-10-04 04:30] VITALS: BP 97/54
[2019-10-04 05:38] LABS: ANION GAP 7.4 mmol/L (8-16); CALCIUM 8.7 mg/dL (8.5-10.1); CARBON DIOXIDE 33.5 mmol/L (21.0-32.0); CREATININE - SERUM 0.9 mg/dL (0.6-1.3); MAGNESIUM - SERUM 1.9 mg/dL (1.8-2.4); POTASSIUM - SERUM 3.9 mmol/L (3.5-5.1)
[2019-10-04 05:50] LABS: HEMATOCRIT 37.4 % (36.0-48.0); HEMOGLOBIN 11.6 g/dL (12-16); LYMPHOCYTES 28.7 % (15-50); MCH 27.6 pg (26.0-34.0); MEAN PLATELET VOLUME 8.8 fL (7.4-10.4); NEUTROPHILS 61.9 % (40-80); PLATELET COUNT 222 10x3/uL (130-400); RDW 13.1 % (11.5-14.5)
--- NOTE | 2019-10-04 06:31 | NUR ---
VSS THROUGHOUT NIGHT. SR PER CM. PT RESTED WELL DURING SHIFT. STATED NORCO CONTROLLED HER CHRONIC BACK PAIN. NEEDS MET; WILL CONTINUE TO MONITOR.
--- NOTE | 2019-10-04 11:00 | NUR ---
LEAVING FOR STRESS TEST BY W/C.
--- NOTE | 2019-10-04 11:50 | NUR ---
BACK FROM STRESS TEST. DIET RESUMED.
--- NOTE | 2019-10-04 12:17 | NUR ---
LEAVING FOR 2ND HALF STRESS TEST BY W/C. WILL CONT. PLAN OF CARE.
[2019-10-04] MEDS ORDERED: ISOSORBIDE DINI10 MG PO (14:34)
[2019-10-04 15:11] VITALS: BP 118/62
--- NOTE | 2019-10-04 15:50 | NUR ---
IV AND TELEMETRY DCD. DC PLANS GIVEN. UNDERSTANDING VOICED. ESCORTED TO CAR BY W/C.
--- NOTE | 2019-10-04 21:23 | MORECARE ---
CASE MANAGEMENT DISCHARGE SUMMARY PATIENT: MELISSA HECTOR UNIT: [id number] ADM DATE: 10/02/19 AGE: 64 : 56 SEX: F ROOM/BED: D.2116 AUTHOR: CARLIE ARCE PHYSICIAN: REFERRING PHYSICIAN: VALORIE PHILIP DO DATE OF SERVICE: 10/04/19 Discharge Plan Patient Name: MELISSA HECTOR [facility] [facility] 1955 Planned Disposition: Home Anticipated Discharge Date: Discharge Date: 10/04/2019 Expected LOS: Initial Reviewer: [email or web address] Initial Review Date: 10/02/2019 Generated: 10/04/19 10:22 pm Patient Name: MELISSA HECTOR Page 51241 at 2123 All edits/amendments must be made on the electronic document DICTATION DATE: 10/04/192121 UPPER CUTTER OUT: MASHA 10/04/192121 RPT#: [id number] DC DATE:10/04/19 STATUS: DIS IN [facility] [address] [place] [address] END OF REPORT
--- NOTE | 2019-10-04 21:29 | MORECARE ---
CASE MANAGEMENT DISCHARGE SUMMARY PATIENT: MELISSA HECTOR UNIT: [id number] ADM DATE: 10/02/19 AGE: 64 : 56 SEX: F ROOM/BED: D.2252 AUTHOR: CARLIE ARCE PHYSICIAN: REFERRING PHYSICIAN: VALORIE PHILIP DO DATE OF SERVICE: 10/04/19 Discharge Plan Patient Name: MELISSA HECTOR Facility: [facility]:[place] : 1955 Planned Disposition: Home Anticipated Discharge Date: Discharge Date: 10/04/2019 Expected LOS: Initial Reviewer: [email or web address] Initial Review Date: 10/02/2019 Generated: 10/04/19 10:29 pm Comments DCP- Discharge Planning Updated by [email or web address]: Louise Garay on 10/04/19 8:[address] Patient Name: MELISSA HECTOR Admission Status: Elective Accout number: [id number] Admission Date: 10-02-2019 : 1955 Admission Diagnosis: Attending: VALORIE PHILIP Current LOS: 2 Anticipated DC Date: Planned Disposition: Home Primary Insurance: MEDICARE A & B Discharge Planning Comments: CM met with patient to complete initial dc planning assessment. CM educated patient on the CM role and verbal consent given by patient to complete assessment. Patient lives at home with family. Patient is independent. At discharge patient plans to return home and feels this is a safe discharge. CM discussed availability of home health, rehab services, and medical equipment. Patient will have family to transport home. Patient denied known discharge needs at this time. CM will continue to follow and will assist as needed with dc plans/needs. Market Manager: Louise Garay DCPIA - Discharge Planning Initial Assessment Updated by [email or web address]: Louise Garay on 10/04/19 9:25 pm * Is the patient Alert and Oriented? Yes * How many steps to enter\exit or inside your home? RAMP * PCP CEDRICK * Pharmacy [facility] * Preadmission Environment Home with Family * ADLs Independent * Other Equipment W/C, BSC, SC, NEBULIZER, HOME/PORTABLE 02 - [facility] * List name and contact numbers for known caregivers / representatives who currently or will assist patient after discharge: ASIF VALERIO [phone] PEDRITO HECTOR [phone] [phone] * Verbal permission to speak to the caregivers and representatives has been obtained from the patient. Yes * Community resources currently utilized None * Additional services required to return to the preadmission environment? No * Can the patient safely return to the preadmission environment? Yes * Has this patient been hospitalized within the prior 30 days at any hospital? No Last DP export: 10/04/19 8:23 p Patient Name: MELISSA HECTOR Page [id number] at 2128 All edits/amendments must be made on the electronic document DICTATION DATE: 10/04/192128 COAL WASHER TENDER: MASHA 10/04/192128 RPT#: [id number] DC DATE:10/04/19 STATUS: DIS IN [facility] [address] [place] [address] END OF REPORT
--- NOTE | 2019-10-05 08:18 | EC ---
PATIENT:MELISSA HECTOR DATE OF SERVICE: 10/02/19 SEX: F MEDICAL RECORD: [id number] DATE OF : 57 LOCATION:D.M2 D.211 AGE OF PATIENT: 64 ADMISSION DATE: 10/02/19 REFERRING PHYSICIAN: INTERPRETING PHYSICIAN: MICHELLE ARANA MD ECHOCARDIOGRAM REPORT ECHO CHARGES 4 ECHO COMPLETE Date: 10/03/19 CLINICAL DIAGNOSIS: CP/CHF ECHOCARDIOGRAPHIC MEASUREMENTS (adult normal given) AC root (d.<3.7cm) 3.1 cm LV Septum d (<1.2 cm> 1.7 cm Valve Excursion 1.6 cm LV Septum (systole) 2.6 cm Left Atria (s.<4.0cm> 3.6 cm LVPW d(<1.2cm) 1.5 cm RV (d.<2.3cm) 3.0 cm LVPW (sytole) 2.5 cm LV diastole(<5.6CM) 5.9 cm MV E-F(>70mm/sec) cm LV systole 2.7 cm LVOT Diameter 1.9 cm MV exc.(>10mm) cm Est.ejection fraction (50-75%) % DOPPLER: LVIT cm/sec A 107 cm/sec E 118 cm/sec LA cm/sec RVSP 21.0 mmHg LVOT 161 cm/sec AOP1/2T m/s Asc. Ao 231 cm/sec RVOT 95.0 cm/sec RA cm/sec PA 154 cm/sec AV Gradient Peak 21.4 mmHg AV Mean 8.7 mmHg AV Area 2.4 cm MV Gradient Peak 7.0 mmHg MV Mean 2.3 mmHg MV Area cm COMMENTS: [employer] Controller: Lucien PHAMOE Merchandise Flow Associate: 4 Dr. Arana TAPE# PACS Pericardial Effusion N DATE OF SERVICE: 10/03/2019 FINDINGS: Left ventricle has left ventricular hypertrophy and hyperdynamic left ventricular function. Ejection fraction 65% to 70%. There is diastolic dysfunction. Left atrium is normal size, shape, and function. Mitral valve appears to be normal with no significant mitral regurgitation. Tricuspid valve appears to be normal structure and function with normal right ECHOCARDIOGRAM REPORT [id number] MELISSA HECTOR ventricular systolic pressures. Pericardium is normal. Right ventricle has mild right ventricular enlargement. The right atrium is normal size, shape, and function. Pulmonic valve is normal. TRANSINT:[id number] Voice Confirmation ID: [id number] DOCUMENT ID: [id number] MICHELLE ARANA MD at 0818 CC: [id number] DICTATION DATE: 10/04/19 1049 [employer] SALES REPRESENTATIVE: 10/04/19 1416 [facility] IN 10/04/19 [id number] [place] [address]
== END 2019-10-04 15:51 | disposition home or self-care (01) | DRG 311 ==
LOC: D.ICU 13:29 → D.M2 16:12
PROVIDERS: ADMIT Family Medicine; ATTEND Family Medicine
DX: I20.0 Unstable angina (principal); J96.11 Chronic respiratory failure with hypoxia; I10 Essential (primary) hypertension; I11.0 Hypertensive heart disease with heart failure; I25.10 Atherosclerotic heart disease of native coronary artery without angina pectoris; J44.9 Chronic obstructive pulmonary disease, unspecified; I50.9 Heart failure, unspecified; E11.40 Type 2 diabetes mellitus with diabetic neuropathy, unspecified; E78.5 Hyperlipidemia, unspecified; Z89.612 Acquired absence of left leg above knee; F32.9 Major depressive disorder, single episode, unspecified

== ENCOUNTER 2020-01-18 12:08 | Day surgery (SDC) | payer MEDICARE ==
[~2020-01-18] VITALS: Ht 154.9 cm; Wt 104.5 kg
--- NOTE | ~2020-01-18 | OP ---
PATIENT NAME: MELISSA HECTOR MEDICAL RECORD: [id number] :57 LOCATION:[facility] ADMISSION DATE: SURGEON: RANDA MCDOWELL DO DATE OF OPERATION: 01/18/2020 PROCEDURE: Colonoscopy with polypectomy. INDICATIONS FOR PROCEDURE: Left lower quadrant abdominal pain, chronic constipation, hematochezia. SCOPE: Olympus video pediatric colonoscope. MEDICATIONS: Propofol 480 mg IV per anesthesia. WITHDRAWAL TIME: 19 minutes. ESTIMATED BLOOD LOSS: Minimal. COMPLICATIONS: None. FINDINGS: Informed consent was given. The patient was made comfortable with the above medication. After reaching an adequate level of sedation by slow IV push, the patient was placed on her left side. A digital rectal examination was performed and was normal. The endoscope was then advanced under direct visualization through the rectum to the cecum and terminal ileum. The endoscope was slowly withdrawn and mucosa was carefully examined. Prep quality was good. There were 3 polyps visualized on today's examination. The first was located in the cecum. It was a flat polyp, which measured approximately 8 mm in length x 3-4 mm in width. It was removed using a hot snare. In the transverse colon, there was a benign appearing sessile polyp, which measured approximately 7 mm in diameter. It was removed using a hot snare. In the descending colon, there was a larger, flat polyp, which measured approximately 1.4 cm in size. It was removed using endoscopic mucosal resection technique with an injection of normal saline for a pillow followed by hot snare polypectomy. The defect left behind was closed using 2 endoclips successfully. There were no diverticula visualized in today's examination. On retroflexion in the rectum, there were grade I internal hemorrhoids without active bleeding. The endoscope was withdrawn from the patient. The patient tolerated the procedure well and there were no complications. IMPRESSION: 1. Three polyps as described above, removed using a combination of a hot snare and EMR technique with endoclipping times 2. 2. Grade I internal hemorrhoids without bleeding. PLAN AND RECOMMENDATIONS: 1. Discharge home when recovery parameters are met. 2. Follow up biopsy specimen results. 3. Continue current medications including lactulose daily as needed for constipation. 4. High fiber diet. 5. We will discuss referral to general surgery with the patient regarding the hemorrhoids, which have been symptomatic for the patient for some time now. 6. Recall colonoscopy within 3 years based on the number, types, and size of polyps removed on today's examination. OPERATIVE REPORT [id number] MELISSA HECTOR TRANSINT:[id number] Voice Confirmation ID: [id number] DOCUMENT ID: [id number] RANDA MCDOWELL DO CC: [id number] DICTATION DATE: 01/18/20 1521 [employer] FAB: 01/19/20 0007 [facility] 01/18/20 [place] [id number] [place] [id number]
[~2020-01-18 12:08] MED LIST changes: +ISOSORBIDE DINI10 MG PO
[2020-01-18 12:36] LABS: BASOPHILS 0.2 % (0-2); EOSINOPHILS 4.2 % (0-7); HEMATOCRIT 38.2 % (36.0-48.0); HEMOGLOBIN 11.9 g/dL (12-16); IMMATURE GRANULOCYTES 0.2 % (0-5); LYMPHOCYTES 17.6 % (15-50); MCH 28.3 pg (26.0-34.0); MCHC 31.2 g/dL (31.0-37.0); MCV 90.7 fL (80.0-100.0); MEAN PLATELET VOLUME 8.9 fL (7.4-10.4); NEUTROPHILS 68.8 % (40-80); PLATELET COUNT 206 10x3/uL (130-400); RBC 4.21 10x6/uL (4.00-5.40); RDW 14.2 % (11.5-14.5); WBC 5.2 10x3/uL (4.8-10.8)
[2020-01-18 12:48] LABS: ALBUMIN 3.6 g/dL (3.4-5.0); ALKALINE PHOSPHATASE 158 U/L (30-120); ALT (SGPT) 72 U/L (10-68); BILIRUBIN - TOTAL 0.34 mg/dL (0.2-1.3); CALC OSMOLALITY 288 mosm/kg (275-300); CALCIUM 9.4 mg/dL (8.5-10.1); CHLORIDE - SERUM 106 mmol/L (98-107); CREATININE - SERUM 0.8 mg/dL (0.6-1.3); GLUCOSE 115 mg/dL (74-106); POTASSIUM - SERUM 4.1 mmol/L (3.5-5.1); PROTEIN - SERUM 7.9 g/dL (6.4-8.2); SODIUM 144 mmol/L (136-145); UREA NITROGEN 14 mg/dL (7-18); eGFR NON AFRICAN AMERICAN 76 mL/min (90-120)
[2020-01-18] MEDS ORDERED: BENICAR20 MG PO (12:54)
[2020-01-18] MEDS ORDERED: ATARAX 25 MG TA25 MG PO (12:54)
[2020-01-18 13:03] VITALS: Ht 154.9 cm; Wt 104.5 kg
--- NOTE | 2020-01-18 15:37 | NUR ---
1530 DR. JEREMIAS FLORES.
== END 2020-01-18 16:05 | disposition home or self-care (01) ==
LOC: D.OPS 12:08
PROVIDERS: ATTEND Internal Medicine Gastroenterology
DX: R10.32 Left lower quadrant pain (principal); K59.00 Constipation, unspecified; K92.1 Melena; K63.5 Polyp of colon; K64.0 First degree hemorrhoids; D64.9 Anemia, unspecified

== ENCOUNTER 2020-09-01 12:19 | Day surgery (SDC) | payer MEDICARE ==
[~2020-09-01] VITALS: Ht 154.9 cm; Wt 97.7 kg
[~2020-09-01 12:19] MED LIST changes: +BENICAR20 MG PO
[2020-09-01] MEDS ORDERED: BENICAR20 MG PO (12:37)
[2020-09-01] MEDS ORDERED: LIPITOR80 MG PO (12:40)
[2020-09-01] MEDS ORDERED: PLAVIX75 MG PO (12:41)
[2020-09-01] MEDS ORDERED: BAYER CHEWABLE81 MG PO (12:42)
[2020-09-01] MEDS ORDERED: CHRONULAC30 ML PO (12:42)
[2020-09-01 13:03] VITALS: BP 126/55; Ht 154.9 cm; Wt 97.7 kg
[2020-09-01 13:06] LABS: BASOPHILS 0.7 % (0-2); EOSINOPHILS 3.7 % (0-7); HEMATOCRIT 36.2 % (36.0-48.0); HEMOGLOBIN 11.8 g/dL (12-16); LYMPHOCYTES 17.3 % (15-50); MCH 27.8 pg (26.0-34.0); MCHC 32.7 g/dL (31.0-37.0); MCV 85.2 fL (80.0-100.0); MEAN PLATELET VOLUME 6.8 fL (7.4-10.4); MONOCYTES 5.9 % (2-11); NEUTROPHILS 72.4 % (40-80); PLATELET COUNT 278 10x3/uL (130-400); RBC 4.25 10x6/uL (4.00-5.40); RDW 14.5 % (11.5-14.5); WBC 6.1 10x3/uL (4.8-10.8)
[2020-09-01] MEDS ORDERED: LIDODERM 5 %1 PATCH TRANSDERM (13:18)
[2020-09-01 13:21] LABS: ALT (SGPT) 31 U/L (10-68); CALC OSMOLALITY 287 mosm/kg (275-300); CALCIUM 9.9 mg/dL (8.5-10.1); CARBON DIOXIDE 27.3 mmol/L (21.0-32.0); CHLORIDE - SERUM 105 mmol/L (98-107); CHOL - HDL RATIO 4.7 ratio (2.3-4.1); CHOLESTEROL, TOTAL 191 mg/dL (0-200); CREATININE - SERUM 0.8 mg/dL (0.6-1.3); GLUCOSE 111 mg/dL (74-106); HDL CHOLESTEROL 41 mg/dL (32-96); LDL CHOLESTEROL 85 mg/dL (0-100); LDL-HDL RATIO 2.1 ratio (1.5-3.5); POTASSIUM - SERUM 4.3 mmol/L (3.5-5.1); SODIUM 142 mmol/L (136-145); TRIGLYCERIDE 328 mg/dL (30-200); UREA NITROGEN 24 mg/dL (7-18); eGFR NON AFRICAN AMERICAN 76 mL/min (90-120)
--- NOTE | 2020-09-01 15:00 | NUR ---
PT REC'D TO CATH RECOVERY ROOM 6 VIA STRETCHER. MONITORS ESTAB. AT BS. SEE BULB GROWER FLOWSHEETS. ALARMS ON AND C/L IN REACH.
--- NOTE | 2020-09-01 15:15 | NUR ---
R GROIN SITE SOFT, NO S/S BLEEDING OR HEMATOMA. R LEG/FOOT WARM WITH PALP PULSES AND BRISK CAP REFILL. PT DENIES PAIN OR NEEDS. ALARMS ON AND C/L IN REACH.
--- NOTE | 2020-09-01 15:25 | NUR ---
DR NEAL IN TO SEE PT, UPDATE GIVEN AND QUESTIONS ANSWERED.
--- NOTE | 2020-09-01 15:45 | NUR ---
R GROIN SITE SOFT, NO S/S BLEEDING OR HEMATOMA. R LEG/FOOT WARM WITH PALP PULSES AND BRISK CAP REFILL. AT BS. PT DENIES PAIN OR NEEDS. ALARMS ON AND C/L IN REACH.
--- NOTE | 2020-09-01 16:00 | NUR ---
R GROIN SITE SOFT, NO S/S BLEEDING OR HEMATOMA. PULSES PALP, BRISK CAP REFILL, HOB ELEVATED. VSS, ALARMS ON AND C/L IN REACH.
--- NOTE | 2020-09-01 16:16 | NUR ---
PT VOIDED 200CC CHRISTIANE URINE ON BEDPAN, PERICARE PROVIDED. R GROIN SOFT, NO S/S BLEEDING, PULSES PALP.
--- NOTE | 2020-09-01 16:45 | NUR ---
R GROIN SITE SOFT, NO S/S BLEEDING OR HEMATOMA. PULSES PALP. PIV D/C'D INTACT, DSG APPLIED. PT ALLOWED UP TO GET DRESSED WITH ASSISTING PT.
--- NOTE | 2020-09-01 16:54 | NUR ---
ALL DISCHARGE INSTRUCTIONS REVIEWED WITH PT, INCLUDING RESTRICTIONS, MEDS AND F/U APPT. PT VERBALIZES UNDERSTANDING.
--- NOTE | 2020-09-01 16:57 | NUR ---
PT D/C'D VIA HER OWN W/C TO PRIVATE VEHICLE WITH ALL BELONGINGS AND PAPERWORK.
--- NOTE | 2020-09-02 08:32 | OP ---
PATIENT NAME: MELISSA HECTOR MEDICAL RECORD: [id number] :57 LOCATION:D.CAT ADMISSION DATE: SURGEON: ABRAM NEAL MD DATE OF OPERATION: 09/01/2020 PROCEDURE: Left heart catheterization, selective coronary angiography, right femoral artery approach. CATHETERS: A 5-Bur[place] sheath, 5/4 left and right Farhan, 5/4 pig. The procedure was well tolerated. The patient was returned to the mayen. Sheath removed. ExoSeal device was placed. FINDINGS: Left ventriculography in 30-degree LYN view; normal wall motion and normal systolic function. CORONARY ANATOMY: LEFT MAIN: Left main is free of disease. LAD: Free of disease in the diagonal system. CIRCUMFLEX: Free of disease in the marginal system. RIGHT CORONARY ARTERY: Dominant right artery, gives rise to PDA, free of disease. IMPRESSION: Normal left ventricular systolic function, normal coronary anatomy. TRANSINT:[id number] Voice Confirmation ID: [id number] DOCUMENT ID: [id number] ABRAM NEAL MD at 0832 CC: [id number] DICTATION DATE: 09/01/20 1450 LD TEACHER: 09/01/20 1702 [facility] 09/01/20 [facility] [address] [place] [address]
== END 2020-09-01 16:57 | disposition home or self-care (01) ==
LOC: D.CATH 12:19
PROVIDERS: ATTEND Internal Medicine Interventional Cardiology
DX: I25.119 Atherosclerotic heart disease of native coronary artery with unspecified angina pectoris (principal); R07.9 Chest pain, unspecified; E11.9 Type 2 diabetes mellitus without complications; I10 Essential (primary) hypertension; E78.5 Hyperlipidemia, unspecified